=== PATIENT | female | born 1980 | race Caucasian/White ===

== ENCOUNTER → 2018-06-16 15:10 | Outpatient (CLI) | payer MEDICAID, SELFPAY ==
[2018-06-16 15:10] VITALS: BMI 20.5
[2018-06-16 16:55] LABS: HIV - WCH Non-Reactive (Nonreactive)
[2018-06-17 02:06] LABS: Rapid Plasmin Reagin (RPR) NONREACTIVE (NONREACTIVE)
[2018-06-19 16:06] LABS: HCV Quant. RNA PCR HCV Not Detected IU/mL (.)
[2018-06-20 11:08] LABS: HSV 2 IgG < 0.91 index (0.00-0.90)
== END ==
PROVIDERS: Referring Provider Nurse Practitioner Women's Health; Visit Provider Nurse Practitioner Women's Health
DX: Z11.3 Encounter for screening for infections with a predominantly sexual mode of transmission (principal)
CPT/HCPCS: 36415; 86592; 86695; 86696; 86703; 87491; 87522; 87591

== ENCOUNTER → 2018-06-21 13:22 | Outpatient (CLI) | payer MEDICAID, SELFPAY ==
[2018-06-17 09:47] VITALS: BMI 18.8
--- NOTE | 2018-06-21 13:25 | US_ITS ---
STUDY: ULTRASOUND TRANSVAGINAL CLINICAL: Female, 37 years old. Pelvic pain. TECHNIQUE: Transvaginal COMPARISON: CT dated June 27, 2016 FINDINGS: Patient status post hysterectomy. Normal right ovary, measuring 1.6 x 1.3 x 1.4 cm. No discrete solid or cystic lesions are visualized. The patient reports prior left oophorectomy. There is no free fluid in the pelvis. No discrete solid or cystic lesions are visualized. US/Transvaginal Non- IMPRESSION: No specific sonographic findings to explain symptoms. Electronically Signed: Leticia Bowling MD at 9:10 EDT Tel , Service support ,
== END ==
PROVIDERS: Referring Provider Obstetrics & Gynecology; Visit Provider Obstetrics & Gynecology
DX: R10.2 Pelvic and perineal pain (principal)
CPT/HCPCS: 76830; 93976

== ENCOUNTER 2018-07-10 12:55 | Emergency (ER) | payer MEDICAID, SELFPAY ==
[2018-06-17 09:47] VITALS: BMI 18.8
[2018-07-10 12:56] VITALS: BP 94/52; PULSE 96; RESP 22; TEMP 36.7; O2SAT 100; BMI 19.5
--- NOTE | 2018-07-10 13:08 | CT_ITS ---
STUDY: CT ABDOMEN AND PELVIS WITHOUT CONTRAST REASON FOR EXAM: Female, 38 years old. Abdominal pain x4 days. Nausea and vomiting. GERD. IBS. Hysterectomy. RADIATION DOSAGE (If Supplied By Facility): CTDIvol = ( 8.82 ) mGy, DLP = ( 438.54 ) mGycm TECHNIQUE: Transaxial images were obtained from the dome of the diaphragm to the symphysis pubis without oral contrast, and without intravenous contrast. Sagittal and coronal images were reconstructed. Individualized dose optimization techniques were used for this CT. COMPARISON: 06/27/2016. FINDINGS: Vertical linear subsegmental atelectases in the right anterior lung base. The visualized portions of the heart are within normal limits. Normal liver. Normal gallbladder and extrahepatic biliary system. Normal spleen. Normal pancreas. Normal bilateral adrenal glands. Normal right kidney. Normal left kidney. Normal visualized stomach. Normal small intestine. Normal colon. The appendix is visualized and appears normal. Normal abdominal aorta. Normal inferior vena cava. Normal retroperitoneum. Normal urinary bladder. Normal abdominal wall. Normal osseous structures. CT/Abdomen/Pelvis without Cont IMPRESSION: 1. Normal unenhanced CT of the abdomen and pelvis. 2. Vertical linear subsegmental atelectases in the right anterior lung base. Electronically Signed: Bonifacio Reynoso MD at 14:32 EDT , Service support ,
--- NOTE | 2018-07-10 13:11 | ED.DCSUM_ITS ---
- ER Visit Summary Date of Service: 07/10/18 Chief Complaint: [] Right-sided abdominal pain diarrhea and vomiting for 4 days History of Present Illness: The patient is a 38 F [] patient has history of chronic abdominal pain, history of hysterectomy with pole of uterus and left ovary right ovary left in place, a few years ago, hiatal hernia, chronic abdominal pain, chronic colon problem, per the patient the father she had extensive prior evaluation at [facility] in [facility], the exact etiology of her chronic pain were unclear at one point time was thought to be related to issues related to ovarian cysts who she was seen by gynecology that was ruled out other time she was told she had a problem with her colon such as colitis or inflammation of the colon testing was done that was non-conclusive. The patient reports for the last 4 days she has had quite a bit of vomiting and diarrhea intensification of the right sided abdominal pain urinary habits have been normal the diarrhea is watery she is also intimately vomiting, her symptoms intensified today and she was brought in by paramedics Father is expressing quite a bit of frustration at the lack of a clear diagnosis and treatment management plan by the variety of physicians who she seen Physical Examination: [] Her vital signs are within normal range she is afebrile in the does not recall having fevers at home complaining of pain to the right side the abdomen General, no distress resting comfortably is complaining of pain to the right side of the abdomen HEENT is generally unremarkable The neck is supple no adenopathy Cardiovascular, regular rate and rhythm Lungs, clear bilateral Abdomen, soft nonspecific pain to the right side abdomen no rebound guarding organomegaly Extremities, no clubbing cyanosis or edema Neurologic, awake alert answering questions appropriately moving all 4 extremiti es Test Results: [] Please add the following the father reports he had an extensive prior evaluation at [facility] in [facility] other allowing facilities that were unremarkable in addition to there are some studies in the computer system at [facility] that reflect the negative pelvic ultrasound done within the last week, negative ultrasound gallbladder 2016, negative colonoscopy EGD 2017 that showed hiatal hernia only Emergency Department Course and Treatment: [] In all the above IV fluid screen ing labs pain management CT of the abdomen Treatment Plan: [] Patient screening labs are all generally unremarkable, the liver panel clotted and could not be redrawn, the UA the rest of the blood test the CT abdomen pelvis were all unremarkable, had a long conversation the patient her father she is resting more comfortably she feels better At this time she wants to go home, she will be started on [place] [facility] [address] tablets Zofran, she has attempted to see [facility] I recommended she do so, she has also been told by her loft worker apprentice she may have endometriosis that is ca using her pelvic pain and she will follow-up with them regarding further management for the above and she will return for change in symptoms Disposition: [] Home stable Impression: [] Acute recurrent abdominal pain vomiting diarrhea improved to resolved This note was generated with [employer]hythm dictation software. It may contain incorrect words, spelling, and punctuation that were not noted in review of the chart prior to signing ED Disposition - Plan for ED Patient: Referrals: Care Physician,No Primary [Primary Care Provider] -
[2018-07-10] MEDS: 0.9% Normal Saline 1,000 ML 1000 ML IV (13:17)
[2018-07-10] MEDS: Ondansetron 4 MG/2 ML Vial IV (13:18)
[2018-07-10] MEDS: morphine 8 MG/ML Syringe IV (13:18)
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
[2018-07-10] MEDS: 0.9% Normal Saline 1,000 ML 999 ML IV (14:02)
[2018-07-10 14:08] VITALS: BP 111/72; PULSE 77; RESP 16; O2SAT 100
[2018-07-10 14:12] LABS: Absolute Neutrophil Count 2.2 X10^3/uL (2.0-7.7); Basophil# 0.01 X10^3/uL; Basophil% 0.3 % (0-1); Eosinophil# 0.03 X10^3/uL; Eosinophils% 0.8 % (0-5); Hematocrit 41.9 % (37-47); Hemoglobin 14.4 g/dl (12.0-15.0); Lymphocyte % 30.6 % (19-41); Mean Corp Hgb Conc 34.4 g/gl (32-36); Mean Corpuscular Hgb 30.8 pg (27.0-32.0); Mean Corpuscular Volume 89.5 fL (81-99); Mean Platelet Vol. 9.8 fl (6.2-12.0); Monocyte# 0.29 X10^3/uL; Monocyte% 8.1 % (0-10); Neutrophil # 2.15 X10^3/uL (2.7-7.7); Neutrophil % 59.9 % (47-70); Platelet Count 171 K/mm3 (150-450); RBC Distribution Width CV 12.6 % (11.6-14.6); RBC Distribution Width SD 40.6 fl (35.1-43.9); Red Blood Count 4.68 M/mm3 (4.2-5.4); White Blood Count 3.6 K/mm3 (4.4-11.0)
[2018-07-10 14:13] LABS: POSITIVE COUNT NO; POSITIVE DIFFERENTIAL NO; POSITIVE MORPHOLOGY NO
[2018-07-10 14:28] LABS: Anion Gap 13 (5-15); BUN 14 mg/dL (7-18); Calcium,Total 8.1 mg/dL (8.5-10.1); Chloride 107 mmol/L (98-107); Creatinine, Serum 0.74 mg/dL (0.55-1.02); EST Glomerular Filtration Rate 94 mL/min (>60); Est Glom Filt Rate - Afr Amer 113 mL/min (>60); Estimated Creatinine Clearance 91.94 ml/min; Glucose 61 mg/dL (74-106); Lipase 76 U/L (73-393); Potassium 3.9 mmol/L (3.5-5.1); Sodium Level 135 mmol/L (136-145)
[2018-07-10 14:33] LABS: Bacteria 0 SEEN /hpf (None Seen); Color, Urine Yellow (Yellow); Glucose, Dipstick Normal (Normal); Leukocyte Esterase-Dipstick Negative /ul (Negative); Mucous, Urine 0 SEEN /hpf (<or=2+); Nitrite-Dipstick Negative (Negative); Occult Blood-Urine Negative /ul (Negative); Protein-Dipstick Negative (Negative); Red Blood Cells-Urine 0 SEEN /hpf (0-5); Specific Gravity, Urine 1.015 (1.002-1.030); Urine Bilirubin Dipstick Negative (Negative); Urine Clarity Clear (Clear); Urine Urobilinogen Normal (Normal)
[2018-07-10 14:36] LABS: Internal QC Validated? YES +Cl - CLEAR BKGD; Ketone-Dipstick 150 mg/dl (Negative); Pregnancy, Urine Negative Negative
[2018-07-10 14:41] LABS: Squamous Epithelial Cells - UA 0-5 SEEN /hpf (5-10); White Blood Cells 0-5 SEEN /hpf (0-5)
[2018-07-10 14:59] VITALS: BP 109/73; PULSE 88; RESP 16; O2SAT 95
--- NOTE | 2018-07-10 15:31 | ED.DEP ---
ED Disposition - Plan for ED Patient: Instructions: ED Abdominal Pain Unkn Cause Prescriptions: Hydrocodone Bitart/Apap 5-325 [[place] 5MG-325MG] 1 tab PO Q4H PRN PRN 2 Days #4 tab PRN Reason: Pain Ondansetron [Zofran Odt] 4 mg PO Q8H PRN PRN #10 tab PRN Reason: Nausea Referrals: Care Physician,No Primary [Primary Care Provider] -
--- NOTE | 2018-07-10 15:34 | DCINST.ED_ITS ---
ED Disposition - Plan for ED Patient: Instructions: ED Abdominal Pain Unkn Cause Prescriptions: Hydrocodone Bitart/Apap 5-325 [[place] 5MG-325MG] 1 tab PO Q4H PRN PRN 2 Days #4 tab PRN Reason: Pain Ondansetron [Zofran Odt] 4 mg PO Q8H PRN PRN #10 tab PRN Reason: Nausea Referrals: Care Physician,No Primary [Primary Care Provider] -
[2018-07-10 16:05] VITALS: BP 108/69; PULSE 85; RESP 16; O2SAT 98
== END 2018-07-10 16:13 | disposition home or self-care (01) ==
LOC: ED 13:29
PROVIDERS: Emergency Provider Emergency Medicine
DX: R10.9 Unspecified abdominal pain (principal); G89.29 Other chronic pain; R19.7 Diarrhea, unspecified; R11.2 Nausea with vomiting, unspecified; Z90.710 Acquired absence of both cervix and uterus
CPT/HCPCS: 36415; 70450; 74176; 80048; 81001; 81025; 83690; 85025; 87086; 96361; 96374; 96375; 99285; J7030; J2405

== ENCOUNTER 2018-07-19 14:11 | Observation (INO) | payer MEDICAID, SELFPAY ==
[2018-07-19] VITALS (7 sets, daily range): BP systolic 92–103; BP diastolic 54–68; PULSE 73–98; RESP 18; TEMP 36.6–36.8; O2SAT 92–100; BMI 19.7; BMI 19.8
--- NOTE | 2018-07-19 14:30 | CT_ITS ---
STUDY: CT ABDOMEN AND PELVIS WITH CONTRAST REASON FOR EXAM: Female, 38 years old. Vomiting, hiatal hernia RADIATION DOSAGE (If Supplied By Facility): CTDIvol = ( 13.45 ) mGy, DLP = ( 360.77 ) mGycm TECHNIQUE: Transaxial images were obtained from the dome of the diaphragm to the symphysis pubis without oral contrast. 100 IV/Oral Isovue 300 was administered. Sagittal and coronal images were reconstructed. Individualized dose optimization techniques were used for this CT. COMPARISON: July 10, 2018 CT abdomen and pelvis FINDINGS: The visualized lung bases are unremarkable. The visualized portions of the heart are within normal limits. Normal liver. Normal gallbladder and extrahepatic biliary system. Normal spleen. Normal pancreas. Normal bilateral adrenal glands. Normal right kidney. Normal left kidney. Normal visualized stomach. Normal small intestine. Normal colon. The appendix is visualized and appears normal. Normal abdominal aorta. Normal inferior vena cava. Normal retroperitoneum. Normal urinary bladder. Normal abdominal wall. Normal osseous structures. CT/Abdomen/Pelvis WITH Contrast IMPRESSION: Normal enhanced CT of the abdomen and pelvis. Electronically Signed: Nicanor Li MD at 16:45 EDT , Service support ,
[2018-07-19] MEDS: 0.9% Normal Saline 1,000 ML 1000 ML IV (14:41)
[2018-07-19] MEDS: HYDROmorphone 1 MG/ML Syringe IV ×2 (14:41→16:21)
[2018-07-19] MEDS: Ondansetron 4 MG/2 ML Vial IV ×2 (14:41→20:20)
[2018-07-19 14:49] LABS: Internal QC Validated? YES +Cl - CLEAR BKGD; Pregnancy, Serum, hCG Quali. NEGATIVE Negative
[2018-07-19 14:57] LABS: AST(SGOT) 24 U/L (15-37); Alanine Aminotransfer ALT/SGPT 24 U/L (13-56); Albumin, Serum 3.9 g/dL (3.2-5.0); Alkaline Phosphatase 100 U/L (45-117); Anion Gap 5 (5-15); BUN 9 mg/dL (7-18); BUN/Creat Ratio 10.9 RATIO (10-20); Calcium,Total 8.9 mg/dL (8.5-10.1); Chloride 110 mmol/L (98-107); Creatinine, Serum 0.83 mg/dL (0.55-1.02); EST Glomerular Filtration Rate 82 mL/min (>60); Est Glom Filt Rate - Afr Amer 99 mL/min (>60); Estimated Creatinine Clearance 82.92 ml/min; Globulin 3.9 g/dL (2.2-4.2); Glucose 101 mg/dL (74-106); Lipase 117 U/L (73-393); Potassium 4.1 mmol/L (3.5-5.1); Protein, Total 7.8 g/dL (6.4-8.2); Sodium Level 138 mmol/L (136-145)
[2018-07-19 14:58] LABS: Absolute Lymphocyte Count 1.32 X10^3/ul (0.83-4.51); Absolute Neutrophil Count 13.3 X10^3/uL (2.0-7.7); Basophil# 0.01 X10^3/uL; Basophil% 0.1 % (0-1); Eosinophils% 3.2 % (0-5); Hematocrit 46.6 % (37-47); Hemoglobin 15.6 g/dl (12.0-15.0); Lymphocyte # 1.32 X10^3/ul (4.0); Lymphocyte % 8.4 % (19-41); Mean Corp Hgb Conc 33.5 g/gl (32-36); Mean Corpuscular Volume 92.5 fL (81-99); Mean Platelet Vol. 10.1 fl (6.2-12.0); Monocyte# 0.67 X10^3/uL; Monocyte% 4.2 % (0-10); Neutrophil # 13.25 X10^3/uL (2.7-7.7); Neutrophil % 83.9 % (47-70); Platelet Count 258 K/mm3 (150-450); RBC Distribution Width CV 13.2 % (11.6-14.6); RBC Distribution Width SD 44.4 fl (35.1-43.9); Red Blood Count 5.04 M/mm3 (4.2-5.4); White Blood Count 15.8 K/mm3 (4.4-11.0)
[2018-07-19 15:00] LABS: Differential Indicated SCAN CRITERIA MET; POSITIVE COUNT NO; POSITIVE DIFFERENTIAL NO; POSITIVE MORPHOLOGY YES
[2018-07-19 15:37] LABS: Differential Comment SCANNED
[2018-07-19] MEDS: proMETHazine 25 MG/ML Syringe 12.5 MG IV (15:40)
[2018-07-19 16:31] LABS: Lactic Acid 0.9 mmol/L (0.4-2.0)
--- NOTE | 2018-07-19 16:57 | ED.VISSUMM ---
- ER Visit Summary Date of Service: 07/19/18 Chief Complaint: [Abdominal pain] History of Present Illness: The patient is a 38 F [presents to the emergency department complaint of abdominal pain that started about a week ago. Patient has had multiple episodes of nausea and vomiting. Patient states that anytime she tries to eat she has worsening pain. Her last bowel movement was yesterday and she had a small stool that was hard. She denies any fevers. Patient has had some sweats. She has a history of a hiatal hernia. She is had prior hysterectomy. Patient presented via EMS and is complaining of severe pain. Patient had a visit to the emergency department approximately a week ago which time she had a CT scan without contrast that was unremarkable.] Physical Examination: [HEENT-PERRLA, EOMI. Cranial nerves II through XII grossly intact. TMs clear. Mucous membranes moist. No adenopathy. Cardiovascular-regular rate and rhythm without murmur or ectopy Lungs-clear to auscultation, chest wall stable without crepitus or subcu emphysema Abdomen-normoactive bowel sounds, soft. Patient has diffuse tenderness to palpation. There is no rebound, rigidity, or perineal signs. Extremities-intact ?4, normal range of motion, normal pulses, atraumatic] Test Results: [CBC with differential White count 15.8, hemoglobin 15.6, hematocrit 47, placed 258. Chemistries normal. LFTs normal. Lipase was 117. hCG was negative. CT scan of the abdomen pelvis with IV and p.o. contrast was read as normal.] Emergency Department Course and Treatment: [Patient was medicated Dilaudid and Zofran. Patient with the complaint of nausea and she was given a dose of Phenergan. Patient then stated that her pain returned and was given another milligram of Dilaudid IV. Patient continues to complain of nausea and pain.] Treatment Plan: [Admit for symptom management and further evaluation.] Disposition: [Admit] Impression: [Abdominal pain-etiology uncertain Intractable nausea and vomiting] This note was generated with Prism Digitalation software. It may contain incorrect words, spelling, and punctuation that were not noted in review of the chart prior to signing ED Disposition - Plan for ED Patient: Referrals: Care Physician,No Primary [Primary Care Provider] -
--- NOTE | 2018-07-19 18:00 | PCM.HP.STD ---
Problem List (1) Abdominal pain Status: Acute (2) Endometriosis Status: Chronic (3) Status post left oophorectomy Status: Chronic History of Present Illness Date of Admission: 07/19/18 Chief Complaint: abdominal pain The patient is a 38 year old F with pmhx of endometriosis s/p hysterectomy and left oopherectomy, former smoker, chronic abdominal pain, who presents to the ER with c/o abdominal pain. This is mainly located over the RLQ and RUQ. She states this has been going on for 3 weeks. She states it is worse with eating, better when sitting with knees drawn up. Pain is 8/10. She has no fever or chills. She has nausea and vomiting. She cannot keep most foods down. She states she is vomiting up stool. She was in the ER about 1 week prior for this, workup was negative including CT abdomen which was normal, also in may she had a transvaginal ultrasound that was normal. Today a repeat CT abdomen is negative. She denies recent travel, denies diet change. She drinks bottled water at home. She has not been exposed to farm animals. She has not had blood in her stool or vomit. She has a prior hysterectomy and left salpingo oopherectomy for endometriosis. I called her OBGYN Dr. Rodríguez. She indicated that she has been seen for chronic pelvic pain and no clear etiology has been found. [] Past Medical History Past Medical History (Chronic Problems): Chronic Problems (Last Updated 06/16/18 @ 14:40 by Kesha Trejo) Endometriosis (Chronic) Status post left oophorectomy (Chronic) Medical History: Medical History (Last Updated 06/16/18 @ 14:40 by Kesha Trejo) Endometriosis N80.9 Hiatal hernia K44.9 Allergies nitrofurantoin macrocrystalline [From Macrodantin] Allergy (Verified 07/19/18 14:31) Mucosal lesions dicyclomine HCl [From Bentyl] Adverse Reaction (Verified 07/19/18 17:23) ANXIETY ANXIETY hydrocodone bitartrate [From Vicodin] Adverse Reaction (Verified 07/19/18 14:31) Nausea/Vom/Diarrhea prochlorperazine [From Compazine] Adverse Reaction (Verified 07/19/18 17:23) ANXIETY ANXIETY prochlorperazine edisylate [From Compazine] Adverse Reaction (Verified 07/19/18 17:23) ANXIETY ANXIETY prochlorperazine maleate [From Filament Labsazine] Adverse Reaction (Verified 07/19/18 17:23) ANXIETY ANXIETY Home Medications: Ambulatory Orders Medication Instructions Recorded Acetaminophen [Tylenol Arthritis] 1,300 mg PO PRN PRN 07/19/18 Cranberry Fruit Concentrate [Azo 250 mg PO DAILY 07/19/18 Cranberry] Ibuprofen 400 mg PO PRN PRN 07/19/18 Naproxen Sodium [Aleve] 440 mg PO PRN PRN 07/19/18 Surgical History: Surgical History (Last Updated 06/16/18 @ 14:40 by Kesha Trejo) H/O: hysterectomy Z90.710 Bilateral salpinectomy History of left oophorectomy Z90.721 Surgical History: hysterectomy Psychiatric History: No pertinent psych hx SU[employer] MA[employer]GER History: endometriosis Lives: With Family Smoking Status: Former smoker Tobacco Use: Cigarettes Alcohol: None Drugs: None - *Family History Maternal Family History: Family History (Last Updated 06/16/18 @ 14:42 by Kesha Trejo) Mother Endometriosis Aunt Cancer Grandmother Cancer Uncle Hypertension History Items: - - RA Review of Systems Constitutional: Denies: Chills, Fever, Weight Change HEENT: Denies: Head Aches, Sinus Congestion, Sinus Drainage Cardiovascular: Denies: Chest Pain, Edema, Heaviness, Light Headedness, Palpitations Respiratory: Denies: Cough, Shortness of Breath, Shortness of breath at rest, Sputum production Gastrointestinal: Reports: Abdominal Pain, Diarrhea, Nausea. Denies: Hematemesis, Hematochezia, Vomiting Genitourinary: Denies: Dysuria Musculoskeletal: Denies: Joint Pain, Joint Tenderness Skin: Denies: Rash, Wounds Neurological: Denies: Numbness, Tingling, Focal weakness Psychiatric: Denies: Anxiety, Depression, Homicidal Ideations, Suicidal Ideations Hematologic/ Lymphatic: Denies: Easy Bruising, Easy Bleeding VTE Information - Inpt Only VTE Present on Admission: No VTE Mechan Device Prophylaxis: None VTE Pharm Prophylaxis ordered?: Yes Patient Problems: Active and Suspected Problems (Last Updated 06/16/18 @ 14:40 by Kesha Trejo) Abdominal pain (Acute) - Physical Exam General: Alert, Oriented x3, Cooperative HEENT: Atraumatic, PERRLA, EOMI, Normocephalic Neck: Supple, No JVD, Negative Carotid Bruits Lungs: Clear to auscultation, Normal air movement Cardiovascular: Regular rate, No murmurs Abdomen: Soft, Hypoactive Bowel Sounds, Tender - diffusely tender, soft on palp no guarding or rigidity. Extremities: No edema, Capillary Refill Less than 3 Seconds Skin: No rashes, No breakdown Musculoskeletal: No Tenderness to Palpation of Joints or Extremities Neurological: Cranial nerves II-XII grossly intact Psych/Mental Status: Appropriate, Anxious, Alert and oriented to time, place, person, mood and affect Vital Signs Temp Pulse Resp BP Pulse Ox 98 F 92 18 100/68 99 07/19/18 14:12 07/19/18 18:00 07/19/18 18:00 07/19/18 18:00 07/19/18 18:00 Oxygen Delivery Method Room Air Weight: 126 lb Body Mass Index (BMI) 19.7 Laboratory Tests Past 24 Hrs 07/19/18 07/19/18 07/19/18 14:25 14:25 14:25 WBC 15.8 H RBC 5.04 Hgb 15.6 H Hct 46.6 MCV 92.5 MCH 31.0 MCHC 33.5 RDW 13.2 RDW Differential 44.4 H Plt Count 258 MPV 10.1 Immature Gran % (Auto) 0.200 Neut % (Auto) 83.9 H Lymph % (Auto) 8.4 L [place] % (Auto) 4.2 Eos % (Auto) 3.2 Baso % (Auto) 0.1 Absolute Neuts (auto) 13.3 H Absolute Lymphs (auto) 1.32 Total Counted Not Reportable Differential Comment SCANNED Sodium 138 Potassium 4.1 Chloride 110 H Carbon Dioxide 23.0 Anion Gap 5 BUN 9 Creatinine 0.83 Estim Creat Clear Calc 82.92 Est GFR (MDRD) Af Amer 99 Est GFR (MDRD) Non-Af 82 BUN/Creatinine Ratio 10.9 Glucose 101 Lactic Acid Calcium 8.9 Total Bilirubin 0.40 AST 24 ALT 24 Alkaline Phosphatase 100 Total Protein 7.8 Albumin 3.9 Globulin 3.9 Albumin/Globulin Ratio 1.0 Lipase 117 Serum , Qual NEGATIVE 07/19/18 07/19/18 14:53 15:35 WBC RBC Hgb Hct MCV MCH MCHC RDW RDW Differential Plt Count MPV Immature Gran % (Auto) Neut % (Auto) Lymph % (Auto) [place] % (Auto) Eos % (Auto) Baso % (Auto) Absolute Neuts (auto) Absolute Lymphs (auto) Total Counted Differential Comment Sodium Potassium Chloride Carbon Dioxide Anion Gap BUN Creatinine Estim Creat Clear Calc Est GFR (MDRD) Af Amer Est GFR (MDRD) Non-Af BUN/Creatinine Ratio Glucose Lactic Acid Cancelled 0.9 Calcium Total Bilirubin AST ALT Alkaline Phosphatase Total Protein Albumin Globulin Albumin/Globulin Ratio Lipase Serum , Qual Assessment/Plan All Active Problems (Last Updated 06/16/18 @ 14:40 by Kesha Trejo) Abdominal pain (Acute) Constipation (Acute) Lower abdominal pain (Acute) Diarrhea (Acute) Epigastric abdominal pain (Acute) 1. Abdominal pain, nausea, vomiting - possibly gastroenteritis. she does have an elevated WBC elevation. Check enteric panel. Pt states she is vomiting up stool. She has little PO intake. Multiple negative CTs of the abdomen, negative transvaginal. No fever. VSS. Received IV dilaudid in the ER, asking for more pain medication. Per OBGYN she has long hx of chronic abdominal pain with no etiology. Hx is inconsistent. She told me this has been going on 3 weeks. Last week in the ER she gave a hx of 4 days. -supportive care, IV fluids, diet sips and chips only. -serum neg. -UA pending. -lactate neg -lipase neg 2. Hx endometriosis s/p hysterectomy, left salpingo-oopherectomy 3. Former smoker, quit 1 year prior DVT ppx: SCDs Obs to Med surg This patient was seen by Aries Abbott PA-C under the supervision of Dr. Quesada.
[2018-07-19 18:06] LABS: Mucous, Urine 0 SEEN /hpf (<or=2+); Red Blood Cells-Urine 0 SEEN /hpf (0-5)
[2018-07-19 18:10] LABS: Color, Urine Yellow (Yellow); Glucose, Dipstick Normal (Normal); Ketone-Dipstick Negative (Negative); Leukocyte Esterase-Dipstick Negative /ul (Negative); Nitrite-Dipstick Negative (Negative); Occult Blood-Urine Negative /ul (Negative); Protein-Dipstick Negative (Negative); Specific Gravity, Urine 1.005 (1.002-1.030); Urine Bilirubin Dipstick Negative (Negative); Urine Clarity Clear (Clear); Urine Urobilinogen Normal (Normal); Urine pH 6.5 (5.0 - 8.0)
--- NOTE | 2018-07-19 18:21 | NURSING ---
pt has not arrived from er at this time
[2018-07-19 18:39] LABS: Bacteria RARE /hpf (None Seen); Squamous Epithelial Cells - UA 0-5 SEEN /hpf (5-10); White Blood Cells 0 SEEN /hpf (0-5)
--- NOTE | 2018-07-19 18:42 | NURSING ---
pt remains in er/off unit
[2018-07-19] MEDS: 0.9% Normal Saline 1,000 ML 125 ML IV (20:19)
[2018-07-19] MEDS: 0.9% NaCl Peripheral Flush Adult/Peds IV (20:20)
[2018-07-19] MEDS: Morphine 2 MG/ML Syringe IV (20:20)
[2018-07-19] MEDS: oxyCODONE 5 MG Tablet PO (21:26)
[2018-07-19] MEDS: Temazepam 15 MG Capsule PO (21:26)
[2018-07-20] MEDS: proMETHazine 25 MG/ML Syringe 6.25 MG IV ×4 (00:22→21:49)
[2018-07-20 02:30] VITALS: BP 94/54; PULSE 74; RESP 16; TEMP 36.7; O2SAT 98
[2018-07-20] MEDS: Morphine 2 MG/ML Syringe IV ×4 (02:37→19:02)
[2018-07-20] MEDS: Ondansetron 4 MG/2 ML Vial IV ×2 (02:43→17:13)
[2018-07-20] MEDS: 0.9% Normal Saline 1,000 ML 125 ML IV ×2 (04:45→16:20)
--- NOTE | 2018-07-20 06:30 | NM_ITS ---
CLINICAL: 38-year-old female with reported history of abdominal pain and nausea. RADIONUCLIDE HEPATOBILIARY SCINTIGRAPHY COMPARISON: Gallbladder ultrasound report 06/27/2018, CT of the abdomen-pelvis report 07/19/2018 FINDINGS: Following the intravenous administration of 5.1 mCi of 99m Tc Mebrofenin, hepatobiliary images reveal: 1. Relatively prompt and homogeneous radiopharmaceutical concentration is noted by a normal sized liver. No parenchymal defects are identified. 2. Gallbladder activity is identified at 30 minutes post radiopharmaceutical administration. 3. Small intestinal tract is not visualized during 60 minutes of pre-CCK sequential imaging. Small bowel activity is identified following the administration of cholecystokinin. 4. Washout of the radiopharmaceutical by the hepatic parenchyma appears qualitatively normal. Cholecystokinin (0.02 ug/kg) was administered intravenously over a 30-minute period. The post CCK gallbladder ejection fraction calculated at 20 minutes following Cholecystokinin administration was noted to be 12.0 % (normal greater than 35%). NM/Hepatobilliary Img w/Pharm Int IMPRESSION: 1. ABNORMAL 99m Tc Mebrofenin hepatobiliary imaging examination with Cholecystokinin. A. A gallbladder ejection fraction calculated to be less than 35% following the administration of Cholecystokinin is consistent with the presence of functional hepatobiliary disease (gallbladder and/or sphincter of Oddi dyskinesia) and/or organic hepatobiliary disease (chronic acalculous cholecystitis and/or cystic duct syndrome) in patients with intermediate to high pretest likelihoods of hepatobiliary illness. (Hayder Lainez et al, Journal of Nuclear Medicine 32:1695, 1990). Electronically Signed: Ariel Barr DO at 12:31 EDT Tel , Service support ,
[2018-07-20 06:54] LABS: Absolute Lymphocyte Count 1.57 X10^3/ul (0.83-4.51); Basophil# 0.01 X10^3/uL; Basophil% 0.2 % (0-1); Eosinophils% 7.5 % (0-5); Hematocrit 37.3 % (37-47); Hemoglobin 12.4 g/dl (12.0-15.0); Lymphocyte # 1.57 X10^3/ul (4.0); Lymphocyte % 29.6 % (19-41); Mean Corp Hgb Conc 33.2 g/gl (32-36); Mean Corpuscular Hgb 30.5 pg (27.0-32.0); Mean Corpuscular Volume 91.6 fL (81-99); Mean Platelet Vol. 9.6 fl (6.2-12.0); Monocyte# 0.29 X10^3/uL; Monocyte% 5.5 % (0-10); Neutrophil # 3.03 X10^3/uL (2.7-7.7); Neutrophil % 57.2 % (47-70); Platelet Count 184 K/mm3 (150-450); RBC Distribution Width CV 13.3 % (11.6-14.6); RBC Distribution Width SD 44.1 fl (35.1-43.9); Red Blood Count 4.07 M/mm3 (4.2-5.4); White Blood Count 5.3 K/mm3 (4.4-11.0)
[2018-07-20 06:56] LABS: POSITIVE COUNT NO; POSITIVE DIFFERENTIAL NO; POSITIVE MORPHOLOGY NO
[2018-07-20 07:07] LABS: AST(SGOT) 17 U/L (15-37); Alanine Aminotransfer ALT/SGPT 16 U/L (13-56); Albumin, Serum 2.9 g/dL (3.2-5.0); Alkaline Phosphatase 75 U/L (45-117); Anion Gap 3 (5-15); BUN 9 mg/dL (7-18); BUN/Creat Ratio 12.4 RATIO (10-20); Calcium,Total 7.9 mg/dL (8.5-10.1); Chloride 115 mmol/L (98-107); Creatinine, Serum 0.73 mg/dL (0.55-1.02); EST Glomerular Filtration Rate 95 mL/min (>60); Est Glom Filt Rate - Afr Amer 115 mL/min (>60); Estimated Creatinine Clearance 94.28 ml/min; Glucose 79 mg/dL (74-106); Potassium 3.8 mmol/L (3.5-5.1); Protein, Total 5.9 g/dL (6.4-8.2); Sodium Level 141 mmol/L (136-145)
[2018-07-20 08:12] VITALS: BP 101/64; PULSE 70; RESP 16; TEMP 36.7; O2SAT 98
--- NOTE | 2018-07-20 09:09 | PN_ITS ---
Patient Problems: Active and Suspected Problems (Last Updated 06/16/18 @ 14:40 by Kesha Trejo) Abdominal pain (Acute) Subjective: Patient is a 38-year-old lady with history of chronic abdominal pain, history of endometriosis status post hysterectomy and left oophorectomy who presented with abdominal discomfort associated with nausea and vomiting. Admitted to regular nursing floor for subsequent management. Objective: GENERAL: Appears to be in some distress HEENT: Atraumatic; EYES; Anicteric, Normal Conjunctiva NECK; supple, normal thyroid, RESPIRATORY: Diminished to auscultation bilaterally, CARDIOVASCULAR: Regular S1 S2, GI: soft, no abdominal tenderness : No Renal angle tenderness; EXTREMITIES: No edema, no clubbing, no cyanosis. MUSCULOSKELETAL: No Joint Tenderness; no muscle waisting NEURO: Awake; no lateralizing signs. SKIN: No Rash PSYCH; Normal affect Vitals/I&O's: Vital Signs Temp Pulse Resp BP Pulse Ox 98.1 F 70 16 101/64 98 07/20/18 08:12 07/20/18 08:12 07/20/18 08:12 07/20/18 08:12 07/20/18 08:12 Oxygen Delivery Method Room Air Weight: 57.153 kg Body Mass Index (BMI) 19.8 Intake and Output for Last 24 Hours 07/18/18 07/19/18 07/20/18 23:59 23:59 23:59 Intake Total 1292 / 1292 Output Total 1300 / 1300 Balance -8 / -8 Laboratory Results 07/19/18 14:25: WBC 15.8 H, RBC 5.04, Hgb 15.6 H, Hct 46.6, MCV 92.5, MCH 31.0, MCHC 33.5, RDW 13.2, RDW Differential 44.4 H, Plt Count 258, MPV 10.1, Immature Gran % (Auto) 0.200, Neut % (Auto) 83.9 H, Lymph % (Auto) 8.4 L, [place] % (Auto) 4.2, Eos % (Auto) 3.2, Baso % (Auto) 0.1, Absolute Neuts (auto) 13.3 H, Absolute Lymphs (auto) 1.32, Total Counted Not Reportable, Differential Comment SCANNED 07/19/18 14:25: Sodium 138, Potassium 4.1, Chloride 110 H, Carbon Dioxide 23.0, Anion Gap 5, BUN 9, Creatinine 0.83, Estim Creat Clear Calc 82.92, Est GFR (MDRD) Af Amer 99, Est GFR (MDRD) Non-Af 82, BUN/Creatinine Ratio 10.9, Glucose 101, Calcium 8.9, Total Bilirubin 0.40, AST 24, ALT 24, Alkaline Phosphatase 100, Total Protein 7.8, Albumin 3.9, Globulin 3.9, Albumin/Globulin Ratio 1.0, Lipase 117 07/19/18 14:25: Serum , Qual NEGATIVE 07/19/18 14:53: Lactic Acid Cancelled 07/19/18 15:35: Lactic Acid 0.9 07/19/18 17:53: Urine Color Yellow, Urine Clarity Clear, Urine pH 6.5, Ur Specific [place] 1.005, Urine Protein Negative, Urine Glucose (UA) Normal, Urine Ketones Negative, Urine Occult Blood Negative, Urine Nitrite Negative, Urine Bilirubin Negative, Urine Urobilinogen Normal, Ur Leukocyte Esterase Negative, Urine RBC 0 SEEN, Urine WBC 0 SEEN, Ur Squamous Epith Cells 0-5 SEEN, Urine Bacteria RARE, Urine Mucus 0 SEEN 07/20/18 06:30: WBC 5.3, RBC 4.07 L, Hgb 12.4, Hct 37.3, MCV 91.6, MCH 30.5, M CHC 33.2, RDW 13.3, RDW Differential 44.1 H, Plt Count 184, MPV 9.6, Immature Gran % (Auto) 0.000, Neut % (Auto) 57.2, Lymph % (Auto) 29.6, Barber % (Auto) 5.5, Eos % (Auto) 7.5 H, Baso % (Auto) 0.2, Absolute Neuts (auto) 3.0, Absolute Lymphs (auto) 1.57, Total Counted Not Reportable 07/20/18 06:30: Sodium 141, Potassium 3.8, Chloride 115 H, Carbon Dioxide 23.0, Anion Gap 3 L, BUN 9, Creatinine 0.73, Estim Creat Clear Calc 94.28, Est GFR (MDRD) Af Amer 115, Est GFR (MDRD) Non-Af 95, BUN/Creatinine Ratio 12.4, Glucose 79, Calcium 7.9 L, Total Bilirubin 0.40, AST 17, ALT 16, Alkaline Phosphatase 75, Total Protein 5.9 L, Albumin 2.9 L, Globulin 3.0, Albumin/Globulin Ratio 1.0 Current Medications Acetaminophen (Tylenol) 650 mg PO Q6H PRN PRN PRN Reason: Non-cardiac pain (mod-severe) Sodium Chloride () 1,000 mls @ 125 mls/hr IV .Q8H MILAN Last Admin: 07/20/18 04:45 Dose: 125 mls/hr Pantoprazole Sodium 40 mg/ (Sodium Chloride) 110 mls @ 330 mls/hr IV Q12 MILAN Last Admin: 07/20/18 07:35 Dose: 330 mls/hr Morphine Sulfate () 2 mg IV Q3H PRN PRN PRN Reason: SEVERE PAIN (6-10/10) Last Admin: 07/20/18 02:37 Dose: 2 mg Ondansetron HCl (Zofran) 4 mg IV Q6H PRN PRN PRN Reason: NAUSEA Last Admin: 07/20/18 02:43 Dose: 4 mg Oxycodone HCl (Oxyir) 5 - 10 mg PO Q4H PRN PRN PRN Reason: SEVERE PAIN (6-10/10) Last Admin: 07/19/18 21:26 Dose: 10 mg Promethazine HCl (Phenergan) 6.25 mg IV Q6H PRN PRN PRN Reason: NAUSEA/VOMITING Last Admin: 07/20/18 06:55 Dose: 6.25 mg Sodium Chloride () 5 - 15 ml IV UD PRN PRN Reason: SALINE FLUSH Last Admin: 07/19/18 20:20 Dose: 10 ml Temazepam (Restoril) 15 mg PO QHS PRN PRN PRN Reason: INSOMNIA Last Admin: 07/19/18 21:26 Dose: 15 mg Medical Necessity - Tobacco Use Smoking Status: Former smoker Tobacco Use: Cigarettes Assessment/Plan All Active Problems (Last Updated 06/16/18 @ 14:40 by Kseha Trejo) Abdominal pain (Acute) Constipation (Acute) Lower abdominal pain (Acute) Diarrhea (Acute) Epigastric abdominal pain (Acute) Patient is a 38-year-old lady with history of chronic abdominal pain, history of endometriosis status post hysterectomy and left oophorectomy who presented with abdominal discomfort associated with nausea and vomiting. Admitted to regular nursing floor for subsequent management. 1. Abdominal pain do suspect pain from possible adhesions following patient's hysterectomy. CT of the abdomen obtained in the emergency department did not show any significant pathology. Patient is scheduled to undergo subsequent evaluation with a HIDA scan 2. Intractable nausea vomiting suspected to be secondary to possible gastroduodenitis patient is on PPI 3. History of endometriosis status post hysterectomy and left oophorectomy 4. History of previous tobacco use apparently did quit a year prior to admission 5. DVT prophylaxis low risk did encourage early ambulation Clinical Impression(s) from Imaging Studies Abdomen/Pelvis CT 07/19/18 14:30 IMPRESSION: Normal enhanced CT of the abdomen and pelvis. Electronically Signed: Nicanor Li MD at 16:45 EDT , Service support , Active Medications Acetaminophen (Tylenol) 650 mg PO Q6H PRN PRN PRN Reason: Non-cardiac pain (mod-severe) Sodium Chloride () 1,000 mls @ 125 mls/hr IV .Q8H MILAN Last Admin: 07/20/18 04:45 Dose: 125 mls/hr Pantoprazole Sodium 40 mg/ (Sodium Chloride) 110 mls @ 330 mls/hr IV Q12 MILAN Last Admin: 07/20/18 07:35 Dose: 330 mls/hr Morphine Sulfate () 2 mg IV Q3H PRN PRN PRN Reason: SEVERE PAIN (6-10/10) Last Admin: 07/20/18 02:37 Dose: 2 mg Ondansetron HCl (Zofran) 4 mg IV Q6H PRN PRN PRN Reason: NAUSEA Last Admin: 07/20/18 02:43 Dose: 4 mg Oxycodone HCl (Oxyir) 5 - 10 mg PO Q4H PRN PRN PRN Reason: SEVERE PAIN (6-10/10) Last Admin: 07/19/18 21:26 Dose: 10 mg Promethazine HCl (Phenergan) 6.25 mg IV Q6H PRN PRN PRN Reason: NAUSEA/VOMITING Last Admin: 07/20/18 06:55 Dose: 6.25 mg Sodium Chloride () 5 - 15 ml IV UD PRN PRN Reason: SALINE FLUSH Last Admin: 07/19/18 20:20 Dose: 10 ml Temazepam (Restoril) 15 mg PO QHS PRN PRN PRN Reason: INSOMNIA Last Admin: 07/19/18 21:26 Dose: 15 mg Code Visit OBSV E&M: 69250 Subsequent observation care L3
--- NOTE | 2018-07-20 10:52 | NURSING ---
pt to radiology for hida scan @ APPROX 1030
--- NOTE | 2018-07-20 11:13 | PCA ---
pt off floor
--- NOTE | 2018-07-20 11:28 | CON.PCM_ITS ---
Problem List (1) Abdominal pain Status: Acute Reason for Consult Date of Consultation: 07/20/18 Reason for Consultation: Abdominal pain History of Present Illness: The patient is a 38 year old F who presented to the ED with 3 week history of severe abdominal pain, nausea, vomiting. Patient was in the ED on 07/10 for similar symptoms. She was discharged to home. Patient also noted diarrhea, decreased appetite. Patient notes RLQ pain which has radiated up to RUQ. Patient denies routine medications. She has had a partial hysterectomy with remaining right ovary. Patient notes a history of chronic lower abdominal/pelvic pain with endometriosis. Patient denies alcohol use, illict drug use, and smoking. Patient notes her father's side has had gallbladder disease. She has never been evaluated for gallbladder disease. CT scan of the ab/pel was unremarkable Past Medical History Past Medical History (Chronic Problems): Chronic Problems (Last Reviewed 07/20/18 @ 11:28 by Corrie Chamorro PA-C) Endometriosis (Chronic) Status post left oophorectomy (Chronic) Medical History: Medical History (Last Reviewed 07/20/18 @ 11:28 by Corrie Chamorro PA-C) Endometriosis N80.9 Hiatal hernia K44.9 Allergies nitrofurantoin macrocrystalline [From Macrodantin] Allergy (Verified 07/19/18 14:31) Mucosal lesions dicyclomine HCl [From Bentyl] Adverse Reaction (Verified 07/19/18 17:23) ANXIETY ANXIETY hydrocodone bitartrate [From Vicodin] Adverse Reaction (Verified 07/19/18 14:31) Nausea/Vom/Diarrhea prochlorperazine [From Compazine] Adverse Reaction (Verified 07/19/18 17:23) ANXIETY ANXIETY prochlorperazine edisylate [From Compazine] Adverse Reaction (Verified 07/19/18 17:23) ANXIETY ANXIETY prochlorperazine maleate [From Compazine] Adverse Reaction (Verified 07/19/18 17:23) ANXIETY ANXIETY Home Medications: Ambulatory Orders Medication Instructions Recorded Acetaminophen [Tylenol Arthritis] 1,300 mg PO PRN PRN 07/19/18 Cranberry Fruit Concentrate [Azo 250 mg PO DAILY 07/19/18 Cranberry] Ibuprofen 400 mg PO PRN PRN 07/19/18 Naproxen Sodium [Aleve] 440 mg PO PRN PRN 07/19/18 Surgical History: Surgical History (Last Reviewed 07/20/18 @ 11:28 by Corrie Chamorro PA-C) H/O: hysterectomy Z90.710 Bilateral salpinectomy History of left oophorectomy Z90.721 Surgical History: hysterectomy - right ovary remaining 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 Lives: With Family Smoking Status: Former smoker Tobacco Use: Cigarettes Alcohol: None Drugs: None - *Family History Maternal Family History: Family History (Last Updated 06/16/18 @ 14:42 by Kesha Trejo) Mother Endometriosis Aunt Cancer Grandmother Cancer Uncle Hypertension History Items: - - RA Review of Systems Constitutional: Reports: Anorexia, Weight Change, Fatigue HEENT: Denies: Head Aches, Sinus Congestion, Sinus Drainage Cardiovascular: Denies: Chest Pain, Palpitations Respiratory: Denies: Cough, Shortness of breath at rest, Sputum production Gastrointestinal: Reports: Abdominal Pain, Diarrhea, Nausea, Vomiting. Denies: Hematemesis, Hematochezia, Melena Genitourinary: Denies: Dysuria Musculoskeletal: Denies: Joint Pain, Joint Tenderness Skin: Denies: Rash, Wounds Neurological: Denies: Numbness, Tingling, Focal weakness Psychiatric: Denies: Anxiety, Depression, Homicidal Ideations, Suicidal Ideations Hematologic/ Lymphatic: Denies: Easy Bruising, Easy Bleeding, Hx of blood clot Patient Problems: Active and Suspected Problems (Last Reviewed 07/20/18 @ 11:28 by Corrie Chamorro PA-C) Abdominal pain (Acute) - Physical Exam General: Alert, Oriented x3, Cooperative HEENT: Atraumatic, PERRLA, EOMI, Normocephalic Neck: Supple, No JVD, Negative Carotid Bruits Lungs: Clear to auscultation, Normal air movement Cardiovascular: Regular rate, No murmurs Abdomen: Bowel Sounds Present, Soft, Tender - RLQ and RUQ Extremities: No edema, Capillary Refill Less than 3 Seconds Skin: No rashes, - - Scratches bilateral upper extremities Musculoskeletal: No Tenderness to Palpation of Joints or Extremities Neurological: Neuro grossly intact Psych/Mental Status: Flat Affect Vital Signs Temp Pulse Resp BP Pulse Ox 98.1 F 70 16 101/64 98 07/20/18 08:12 07/20/18 08:12 07/20/18 08:12 07/20/18 08:12 07/20/18 08:12 Oxygen Delivery Method Room Air Weight: 126 lb Body Mass Index (BMI) 19.8 Intake and Output for Last 24 Hours 07/18/18 07/19/18 07/20/18 23:59 23:59 23:59 Intake Total 1292 / 1292 Output Total 1300 / 1300 Balance -8 / -8 Laboratory Tests Past 24 Hrs 07/19/18 07/19/18 07/19/18 14:25 14:25 14:25 WBC 15.8 H RBC 5.04 Hgb 15.6 H Hct 46.6 MCV 92.5 MCH 31.0 MCHC 33.5 RDW 13.2 RDW Differential 44.4 H Plt Count 258 MPV 10.1 Immature Gran % (Auto) 0.200 Neut % (Auto) 83.9 H Lymph % (Auto) 8.4 L [place] % (Auto) 4.2 Eos % (Auto) 3.2 Baso % (Auto) 0.1 Absolute Neuts (auto) 13.3 H Absolute Lymphs (auto) 1.32 Total Counted Not Reportable Differential Comment SCANNED Sodium 138 Potassium 4.1 Chloride 110 H Carbon Dioxide 23.0 Anion Gap 5 BUN 9 Creatinine 0.83 Estim Creat Clear Calc 82.92 Est GFR (MDRD) Af Amer 99 Est GFR (MDRD) Non-Af 82 BUN/Creatinine Ratio 10.9 Glucose 101 Lactic Acid Calcium 8.9 Total Bilirubin 0.40 AST 24 ALT 24 Alkaline Phosphatase 100 Total Protein 7.8 Albumin 3.9 Globulin 3.9 Albumin/Globulin Ratio 1.0 Lipase 117 Serum , Qual NEGATIVE Urine Color Urine Clarity Urine pH Ur Specific [place] Urine Protein Urine Glucose (UA) Urine Ketones Urine Occult Blood Urine Nitrite Urine Bilirubin Urine Urobilinogen Ur Leukocyte Esterase Urine RBC Urine WBC Ur Squamous Epith Cells Urine Bacteria Urine Mucus 07/19/18 07/19/18 07/19/18 14:53 15:35 17:53 WBC RBC Hgb Hct MCV MCH MCHC RDW RDW Differential Plt Count MPV Immature Gran % (Auto) Neut % (Auto) Lymph % (Auto) Lake % (Auto) Eos % (Auto) Baso % (Auto) Absolute Neuts (auto) Absolute Lymphs (auto) Total Counted Differential Comment Sodium Potassium Chloride Carbon Dioxide Anion Gap BUN Creatinine Estim Creat Clear Calc Est GFR (MDRD) Af Amer Est GFR (MDRD) Non-Af BUN/Creatinine Ratio Glucose Lactic Acid Cancelled 0.9 Calcium Total Bilirubin AST ALT Alkaline Phosphatase Total Protein Albumin Globulin Albumin/Globulin Ratio Lipase Serum , Qual Urine Color Yellow Urine Clarity Clear Urine pH 6.5 Ur Specific [place] 1.005 Urine Protein Negative Urine Glucose (UA) Normal Urine Ketones Negative Urine Occult Blood Negative Urine Nitrite Negative Urine Bilirubin Negative Urine Urobilinogen Normal Ur Leukocyte Esterase Negative Urine RBC 0 SEEN Urine WBC 0 SEEN Ur Squamous Epith Cells 0-5 SEEN Urine Bacteria RARE Urine Mucus 0 SEEN 07/20/18 07/20/18 06:30 06:30 WBC 5.3 RBC 4.07 L Hgb 12.4 Hct 37.3 MCV 91.6 MCH 30.5 MCHC 33.2 RDW 13.3 RDW Differential 44.1 H Plt Count 184 MPV 9.6 Immature Gran % (Auto) 0.000 Neut % (Auto) 57.2 Lymph % (Auto) 29.6 [place] % (Auto) 5.5 Eos % (Auto) 7.5 H Baso % (Auto) 0.2 Absolute Neuts (auto) 3.0 Absolute Lymphs (auto) 1.57 Total Counted Not Reportable Differential Comment Sodium 141 Potassium 3.8 Chloride 115 H Carbon Dioxide 23.0 Anion Gap 3 L BUN 9 Creatinine 0.73 Estim Creat Clear Calc 94.28 Est GFR (MDRD) Af Amer 115 Est GFR (MDRD) Non-Af 95 BUN/Creatinine Ratio 12.4 Glucose 79 Lactic Acid Calcium 7.9 L Total Bilirubin 0.40 AST 17 ALT 16 Alkaline Phosphatase 75 Total Protein 5.9 L Albumin 2.9 L Globulin 3.0 Albumin/Globulin Ratio 1.0 Lipase Serum , Qual Urine Color Urine Clarity Urine pH Ur Specific [place] Urine Protein Urine Glucose (UA) Urine Ketones Urine Occult Blood Urine Nitrite Urine Bilirubin Urine Urobilinogen Ur Leukocyte Esterase Urine RBC Urine WBC Ur Squamous Epith Cells Urine Bacteria Urine Mucus Assessment/Plan All Active Problems (Last Reviewed 07/20/18 @ 11:28 by Corrie Chamorro PA-C) Abdominal pain (Acute) Constipation (Acute) Lower abdominal pain (Acute) Diarrhea (Acute) Epigastric abdominal pain (Acute) I have been consulted in conjunction with Dr. Hayes Impression: abdominal pain unknown etiology Plan: I have discussed this patient with Dr. Hayes. We will plan to obtain HIDA scan. If abnormal, will discuss cholecystectomy. If normal, will plan to perform an upper GI series. Patient has had the opportunity to ask and have questions answered. Patient verbally understands and agrees with the plan. Thank you for allowing us to participate in this patient's care. Code Visit Office Visits / Consults: [id number] IP Consult L3
[2018-07-20] MEDS: Acetaminophen 325 MG Tablet 650 MG PO (13:18)
[2018-07-20] MEDS: oxyCODONE 5 MG Tablet PO ×3 (13:19→21:45)
[2018-07-20 14:30] VITALS: BP 99/65; PULSE 70; RESP 18; TEMP 36.7; O2SAT 100
[2018-07-20] MEDS: 0.9% NaCl Peripheral Flush Adult/Peds IV (15:23)
[2018-07-20 19:00] VITALS: BP 109/65; PULSE 82; RESP 16; TEMP 36.7; O2SAT 99
[2018-07-20] MEDS: Temazepam 15 MG Capsule PO (21:49)
[2018-07-20 23:00] VITALS: BP 93/66; PULSE 91; RESP 16; TEMP 36.6; O2SAT 100
[2018-07-21] VITALS (15 sets, daily range): BP systolic 81–114; BP diastolic 48–83; PULSE 51–109; RESP 14–18; TEMP 36.4–37.2; O2SAT 95–100; BMI 19.8
--- NOTE | 2018-07-21 | GALL_PTH ---
PATIENT: NATALY RODRIGUEZ LOC: MS2 U#:[id number] AGE/SX: 38/F ROOM: MS219 RE07/19/[address]: Dr. Erik Vines MD : 1980 BED: 1 DIS: 07/22/2018 SPEC #: [id number] RECD: 07/21/18 13:12 STATUS: GRIS REQ #: [id number] RAKAN: 07/21/18 00:[address]: Nicolás Hayes DEPT: SURGICAL PATHOLOGY RECD BY: Darwin Prater ENTERED: 07/21/18 13:12 SP TYPE: GALLBLROSA M OSULLIVAN DR: MD Dr. Erik Santizo MD Dr. Daniel Peabody, MD No Primary Care Phys Tissues: Gallbladder, NOS Procedures: Surgery Specimen Level III Comments: @ Ordering doctor for SUIII edited from to @ by ANGELA at 07/21/18 1404 @ Submitting doctor edited from to DR.[email or web address] Duarte by ANGELA at 07/21/18 1404 HEADER OPERATION: Laparoscopic cholecystectomy PRE-OP DIAGNOSIS: Abdominal pain TISSUE SUBMITTED: Gallbladder MICROSCOPIC DIAGNOSIS Gallbladder, cholecystectomy: Mild chronic cholecystitis. No stones are identified in the container or in the gallbladder. ILYA:onel 07/22/18 MICROSCOPIC DESCRIPTION Slides are reviewed. GROSS DESCRIPTION Received is one container labeled with the patient's name and designated gallbladder. The specimen consists of a gallbladder measuring 10.5 cm in length and up to 4.5 cm in diameter. The external surface is pink-eng[place], smooth and glistening for the most part. Focally it is granular, hemorrhagic and contains cautery artifact. The gallbladder contains green-yellow mucoid bile. No stones are identified in the container or in the gallbladder. The mucosa is bile-stained and without any mass lesions. The gallbladder wall measures up to 0.1 cm in thickness. Manufacturing Test Engineer sections from the gallbladder and the cystic duct are submitted in one cassette. / ILYA:onel 07/21/18 TC:5 CPT: 87518
[2018-07-21] MEDS: Ondansetron 4 MG/2 ML Vial IV ×2 (00:46→07:22)
[2018-07-21] MEDS: Morphine 2 MG/ML Syringe IV ×4 (00:46→22:51)
[2018-07-21] MEDS: 0.9% Normal Saline 1,000 ML 125 ML IV ×5 (00:50→22:54)
[2018-07-21] MEDS: proMETHazine 25 MG/ML Syringe 6.25 MG IV ×2 (05:08→15:45)
--- NOTE | 2018-07-21 06:00 | EKG12_ITS ---
Test Reason : AM EKG Blood Pressure : / mmHG Vent. Rate : 083 BPM Atrial Rate : 083 BPM P-R Int : 180 ms QRS Dur : 090 ms QT Int : 378 ms P-R-T Axes : 059 077 077 degrees QTc Int : 444 ms Normal sinus rhythm Normal ECG Confirmed by EDILSON MANDUJANO, TAMIKO ([id number]), online editor CORRIE BROWN ([id number]) on 08/03/2018 1:56:02 PM Referred By: Corrie Chamorro Confirmed By:TAMIKO WAGGONER MD
[2018-07-21] MEDS: oxyCODONE 5 MG Tablet PO ×3 (07:04→19:23)
--- NOTE | 2018-07-21 08:48 | PCM.PN.HOSP ---
Patient Problems: Active and Suspected Problems (Last Reviewed 07/20/18 @ 11:28 by Corrie Chamorro PA-C) Abdominal pain (Acute) Subjective: Patient HIDA scan demonstrated an ejection fraction of 12% consistent with presence of fraction hepato-biliary disease. General surgery consulted and admission patient seen by Dr. Hayes with plans for patient to undergo laparoscopic cholecystectomy this morning Objective: GENERAL: Appears to be in some distress HEENT: Atraumatic; EYES; Anicteric, Normal Conjunctiva NECK; supple, normal thyroid, RESPIRATORY: Diminished to auscultation bilaterally, CARDIOVASCULAR: Regular S1 S2, GI: soft, no abdominal tenderness : No Renal angle tenderness; EXTREMITIES: No edema, no clubbing, no cyanosis. MUSCULOSKELETAL: No Joint Tenderness; no muscle waisting NEURO: Awake; no lateralizing signs. SKIN: No Rash PSYCH; Normal affect Vitals/I&O's: Vital Signs Temp Pulse Resp BP Pulse Ox 97.8 F 76 18 99/66 98 07/21/18 08:31 07/21/18 08:31 07/21/18 08:31 07/21/18 08:31 07/21/18 08:31 Oxygen Delivery Method Room Air Weight: 57.2 kg Body Mass Index (BMI) 19.8 Intake and Output for Last 24 Hours 07/19/18 07/20/18 07/21/18 23:59 23:59 23:59 Intake Total 1657 / 1657 2362 / 2362 Output Total 1300 / 1300 1200 / 1200 Balance 357 / 357 1162 / 1162 Current Medications Acetaminophen (Tylenol) 650 mg PO Q6H PRN PRN PRN Reason: Non-cardiac pain (mod-severe) Last Admin: 07/20/18 13:18 Dose: 650 mg Sodium Chloride () 1,000 mls @ 125 mls/hr IV .Q8H MILAN Last Admin: 07/21/18 00:50 Dose: 125 mls/hr Pantoprazole Sodium 40 mg/ (Sodium Chloride) 110 mls @ 330 mls/hr IV Q12 MILAN Last Admin: 07/20/18 21:49 Dose: 330 mls/hr Ketorolac Tromethamine (Toradol) 15 mg IV Q6H PRN PRN PRN Reason: PAIN Stop: 07/26/18 08:34 Morphine Sulfate () 2 mg IV Q3H PRN PRN PRN Reason: SEVERE PAIN (6-10/10) Last Admin: 07/21/18 05:08 Dose: 2 mg Ondansetron HCl (Zofran) 4 mg IV Q6H PRN PRN PRN Reason: NAUSEA Last Admin: 07/21/18 07:22 Dose: 4 mg Oxycodone HCl (Oxyir) 5 - 10 mg PO Q4H PRN PRN PRN Reason: SEVERE PAIN (6-10/10) Last Admin: 07/21/18 07:04 Dose: 10 mg Promethazine HCl (Phenergan) 6.25 mg IV Q6H PRN PRN PRN Reason: NAUSEA/VOMITING Last Admin: 07/21/18 05:08 Dose: 6.25 mg Sodium Chloride () 5 - 15 ml IV UD PRN PRN Reason: SALINE FLUSH Last Admin: 07/20/18 15:23 Dose: 10 ml Temazepam (Restoril) 15 mg PO QHS PRN PRN PRN Reason: INSOMNIA Last Admin: 07/20/18 21:49 Dose: 15 mg Medical Necessity - Tobacco Use Smoking Status: Former smoker Tobacco Use: Cigarettes Assessment/Plan All Active Problems (Last Reviewed 07/20/18 @ 11:28 by Corrie Chamorro PA-C) Abdominal pain (Acute) Constipation (Acute) Lower abdominal pain (Acute) Diarrhea (Acute) Epigastric abdominal pain (Acute) Patient is a 38-year-old lady with history of chronic abdominal pain, history of endometriosis status post hysterectomy and left oophorectomy who presented with abdominal discomfort associated with nausea and vomiting. Admitted to regular nursing floor for subsequent management. 1. Abdominal pain do suspect pain from possible adhesions following patient's hysterectomy. CT of the abdomen obtained in the emergency department did not show any significant pathology. Patient underwent subsequent evaluation with a HIDA scan on 07/20/2018,. Patient HIDA scan demonstrated an ejection fraction of 12% consistent with presence of fraction hepato-biliary disease. General surgery consulted and admission patient seen by Dr. Hayes with plans for patient to undergo laparoscopic cholecystectomy on 07/21/2018. 2. Intractable nausea vomiting suspected to be secondary to possible gastroduodenitis patient is on PPI 3. History of endometriosis status post hysterectomy and left oophorectomy 4. History of previous tobacco use apparently did quit a year prior to admission 5. DVT prophylaxis low risk did encourage early ambulation Clinical Impression(s) from Imaging Studies Hepatobiliary Scan Nuclear Medicine 07/20/18 06:30 IMPRESSION: 1. ABNORMAL 99m Tc Mebrofenin hepatobiliary imaging examination with Cholecystokinin. A. A gallbladder ejection fraction calculated to be less than 35% following the administration of Cholecystokinin is consistent with the presence of functional hepatobiliary disease (gallbladder and/or sphincter of Oddi dyskinesia) and/or organic hepatobiliary disease (chronic acalculous cholecystitis and/or cystic duct syndrome) in patients with intermediate to high pretest likelihoods of hepatobiliary illness. (Hayder Lainez et al, Journal of Nuclear Medicine 32:1695, 1990). Electronically Signed: Ariel Barr DO at 12:31 EDT Tel , Service support , Code Visit OBSV E&M: 14616 Subsequent observation care L3
[2018-07-21] MEDS: Ketorolac 15 MG/ML Vial IV ×2 (09:00→21:28)
[2018-07-21] MEDS: 0.9% NaCl Peripheral Flush Adult/Peds IV ×4 (09:01→22:51)
[2018-07-21] MEDS: Cefazolin 2 GM in 0.9% Normal Saline 100 ML IV (11:11)
--- NOTE | 2018-07-21 11:29 | PCM.OPRPT ---
Problem List (1) Biliary dyskinesia Status: Acute (2) Epigastric abdominal pain Status: Acute Report of Operation Date of Procedure: 07/21/18 Pre-Operative Diagnosis: Biliary dyskinesia, epigastric pain, nausea Post-Operative Diagnosis: Same Surgery/Procedure Performed:: Laparoscopic cholecystectomy Type of Anesthesia:: General Anesthesiologist: Osiel Dejesus Specimen's removed: Gallbladder Drains: None Estimated Blood Loss (mL): < 25 cc Fluids Replaced: 700 cc lr Description of Procedure: Patient brought in the operating placed in supine position under excellent general trach intubation the abdomen was still prepped draped usual fashion. Local was injected intravesically. Dissection was carried down to the fascia. Fascia grasped with [place]. Varies needle was placed inside the abdomen the abdomen was insufflated 15 torr. A 10/12 trocar was placed at difficulty. Patient was placed in head up rotated left position. Subxiphoid #5 trocar was placed, inferior to this another #5 trocar was placed, laterally a #5 trocar was placed. Patient was placed in the head up and rotated to the left position. The fundus of the gallbladder was grasped retracted in a cephalad direction moderate amount of adhesions were taken down sharply on the gallbladder. I dissected out the cystic duct. I placed hemoclips proximal distally and ligated the duct. Then by the cystic artery. Hemoclips were placed both proximally distally and the artery was ligated. Deliver the gallbladder from gallbladder bed with use of electrocautery had no spillage of bile or stones. Placed a specimen a specimen bag delivered through the umbilical port without difficulty. Reinflated the abdomen inspected the liver bed using electrocautery for good epistasis inspected the stomach and the duodenum this all look normal. Remove the trochars under direct visualization good hemostasis was noted close the fascia and the umbilical port with figure stitch of 0 Vicryl. Skin incisions were closed with subcu stitches of 4-0 Monocryl. Steri-Strips were applied. Sterile dressings were applied. Patient tolerated the procedure well. - Admit VTE Documentation VTE Present on Admission: No VTE Mechan Device Prophylaxis: SCD's VTE Pharm Prophylaxis ordered?: No
--- NOTE | 2018-07-21 11:33 | OP.PCM_ITS ---
Problem List (1) Biliary dyskinesia Status: Acute (2) Epigastric abdominal pain Status: Acute Report of Operation Date of Procedure: 07/21/18 Pre-Operative Diagnosis: Biliary dyskinesia, epigastric pain, nausea Post-Operative Diagnosis: Same Surgery/Procedure Performed:: Laparoscopic cholecystectomy Type of Anesthesia:: General Anesthesiologist: Osiel Dejesus Specimen's removed: Gallbladder Drains: None Estimated Blood Loss (mL): < 25 cc Fluids Replaced: 700 cc lr Description of Procedure: Patient brought in the operating placed in supine position under excellent general trach intubation the abdomen was still prepped draped usual fashion. Local was injected intravesically. Dissection was carried down to the fascia. Fascia grasped with [place]. Varies needle was placed inside the abdomen the abdomen was insufflated 15 torr. A 10/12 trocar was placed at difficulty. Patient was placed in head up rotated left position. Subxiphoid #5 trocar was placed, inferior to this another #5 trocar was placed, laterally a #5 trocar was placed. Patient was placed in the head up and rotated to the left position. The fundus of the gallbladder was grasped retracted in a cephalad direction mode rate amount of adhesions were taken down sharply on the gallbladder. I dissected out the cystic duct. I placed hemoclips proximal distally and ligated the duct. Then by the cystic artery. Hemoclips were placed both proximally distally and the artery was ligated. Deliver the gallbladder from gallbladder bed with use of electrocautery had no spillage of bile or stones. Placed a specimen a specimen bag delivered through the umbilical port without difficulty. Reinflated the abdomen inspected the liver bed using electrocautery for good epistasis inspected the stomach and the duodenum this all look normal. Remove the trochars under direct visualization good hemostasis was noted close the fascia and the umbilical port with figure stitch of 0 Vicryl. Skin incisions were closed with subcu stitches of 4-0 Monocryl. Steri-Strips were applied. Sterile dressings were applied. Patient tolerated the procedure well. - Admit VTE Documentation VTE Present on Admission: No VTE Mechan Device Prophylaxis: SCD's VTE Pharm Prophylaxis ordered?: No
[2018-07-21] MEDS: Bupivacaine Mpf 0.5% 30 ML VIAL (11:40)
[2018-07-21] MEDS: Acetaminophen 325 MG Tablet 650 MG PO (19:22)
[2018-07-21] MEDS: Temazepam 15 MG Capsule PO (21:28)
[2018-07-22] MEDS: oxyCODONE 5 MG Tablet PO ×3 (01:03→09:40)
[2018-07-22] MEDS: 0.9% NaCl Peripheral Flush Adult/Peds IV ×2 (01:04→06:48)
[2018-07-22 01:50] VITALS: BP 99/64; PULSE 104; RESP 14; TEMP 36.6; O2SAT 96
[2018-07-22] MEDS: Acetaminophen 325 MG Tablet 650 MG PO (05:18)
[2018-07-22] MEDS: Ketorolac 15 MG/ML Vial IV (06:48)
[2018-07-22] MEDS: 0.9% Normal Saline 1,000 ML 125 ML IV (06:48)
--- NOTE | 2018-07-22 07:37 | PN_ITS ---
Patient Problems: Active and Suspected Problems (Last Reviewed 07/20/18 @ 11:28 by Corire Chamorro PA-C) Abdominal pain (Acute) Biliary dyskinesia (Acute) Subjective: Patient underwent laparoscopic cholecystectomy on 07/21/2018 with plans for patient to be discharged home this morning Objective: GENERAL: Not in distress. HEENT: Atraumatic; EYES; Anicteric, Normal Conjunctiva NECK; supple, normal thyroid, RESPIRATORY: Diminished to auscultation bilaterally, CARDIOVASCULAR: Regular S1 S2, GI: soft, no abdominal tenderness : No Renal angle tenderness; EXTREMITIES: No edema, no clubbing, no cyanosis. MUSCULOSKELETAL: No Joint Tenderness; no muscle waisting NEURO: Awake; no lateralizing signs. SKIN: No Rash PSYCH; Normal affect Vitals/I&O's: Vital Signs Temp Pulse Resp BP Pulse Ox 97.9 F 104 H 14 99/64 96 07/22/18 01:50 07/22/18 01:50 07/22/18 01:50 07/22/18 01:50 07/22/18 01:50 Oxygen Delivery Method Room Air Weight: 57.2 kg Body Mass Index (BMI) 19.8 Intake and Output for Last 24 Hours 07/20/18 07/21/18 07/22/18 23:59 23:59 23:59 Intake Total 1657 / 1657 8598 / 8598 1192 / 1192 Output Total 1300 / 1300 3550 / 3550 Balance 357 / 357 5048 / 5048 1192 / 1192 Current Medications Acetaminophen (Tylenol) 650 mg PO Q6H PRN PRN PRN Reason: Non-cardiac pain (mod-severe) Last Admin: 07/22/18 05:18 Dose: 650 mg Acetaminophen (Tylenol) 1,300 mg PO DAILY PRN PRN PRN Reason: PAIN Sodium Chloride () 1,000 mls @ 125 mls/hr IV .Q8H MILAN Last Admin: 07/22/18 06:48 Dose: 125 mls/hr Pantoprazole Sodium 40 mg/ (Sodium Chloride) 110 mls @ 330 mls/hr IV Q12 MILAN Last Admin: 07/21/18 21:28 Dose: 330 mls/hr Ibuprofen (Motrin) 400 mg PO DAILY PRN PRN PRN Reason: PAIN Ketorolac Tromethamine (Toradol) 15 mg IV Q6H PRN PRN PRN Reason: PAIN Stop: 07/26/18 08:34 Last Admin: 07/22/18 06:48 Dose: 15 mg Morphine Sulfate () 2 mg IV Q3H PRN PRN PRN Reason: SEVERE PAIN (6-10/10) Last Admin: 07/21/18 22:51 Dose: 2 mg Naproxen (Naprosyn) 500 mg PO DAILY PRN PRN PRN Reason: PAIN Ondansetron HCl (Zofran) 4 mg IV Q6H PRN PRN PRN Reason: NAUSEA Last Admin: 07/21/18 07:22 Dose: 4 mg Oxycodone HCl (Oxyir) 5 - 10 mg PO Q4H PRN PRN PRN Reason: SEVERE PAIN (6-10/10) Last Admin: 07/22/18 05:18 Dose: 10 mg Promethazine HCl (Phenergan) 6.25 mg IV Q6H PRN PRN PRN Reason: NAUSEA/VOMITING Last Admin: 07/21/18 15:45 Dose: 6.25 mg Sodium Chloride () 5 - 15 ml IV UD PRN PRN Reason: SALINE FLUSH Last Admin: 07/22/18 06:48 Dose: 10 ml Temazepam (Restoril) 15 mg PO QHS PRN PRN PRN Reason: INSOMNIA Last Admin: 07/21/18 21:28 Dose: 15 mg Medical Necessity - Tobacco Use Smoking Status: Former smoker Tobacco Use: Cigarettes Assessment/Plan All Active Problems (Last Reviewed 07/20/18 @ 11:28 by Corrie Chamorro PA-C) Abdominal pain (Acute) Biliary dyskinesia (Acute) Constipation (Acute) Lower abdominal pain (Acute) Diarrhea (Acute) Epigastric abdominal pain (Acute) Patient is a 38-year-old lady with history of chronic abdominal pain, history of endometriosis status post hysterectomy and left oophorectomy who presented with abdominal discomfort associated with nausea and vomiting. Admitted to regular nursing floor for subsequent management. 1. Abdominal pain secondary to biliary dyskinesia. CT of the abdomen obtained in the emergency department did not show any significant pathology. Patient underwent subsequent evaluation with a HIDA scan on 07/20/2018,. Patient HIDA scan demonstrated an ejection fraction of 12% consistent with presence of f raction hepato-biliary disease. General surgery consulted on admission; patient seen by Dr. Hayes; patient underwent laparoscopic cholecystectomy on 07/21/2018. 2. Intractable nausea vomiting suspected to be secondary to possible gastroduodenitis patient is on PPI 3. History of endometriosis status post hysterectomy and left oophorectomy 4. History of previous tobacco use apparently did quit a year prior to admission 5. DVT prophylaxis low risk did encourage early ambulation Code Visit Inpatient E&M: 90973 Subs Hosp L2
[2018-07-22 07:51] VITALS: BP 115/83; PULSE 83; RESP 16; TEMP 37.2; O2SAT 100
[2018-07-22 08:25] LABS: Absolute Lymphocyte Count 1.71 X10^3/ul (0.83-4.51); Basophil# 0.01 X10^3/uL; Basophil% 0.2 % (0-1); Eosinophil# 0.14 X10^3/uL; Eosinophils% 2.6 % (0-5); Hematocrit 33.5 % (37-47); Hemoglobin 11.1 g/dl (12.0-15.0); Lymphocyte # 1.71 X10^3/ul (4.0); Lymphocyte % 31.6 % (19-41); Mean Corp Hgb Conc 33.1 g/gl (32-36); Mean Corpuscular Hgb 30.2 pg (27.0-32.0); Mean Corpuscular Volume 91.3 fL (81-99); Mean Platelet Vol. 9.6 fl (6.2-12.0); Monocyte# 0.51 X10^3/uL; Monocyte% 9.4 % (0-10); Neutrophil # 3.03 X10^3/uL (2.7-7.7); Platelet Count 179 K/mm3 (150-450); RBC Distribution Width CV 13.1 % (11.6-14.6); RBC Distribution Width SD 43.8 fl (35.1-43.9); Red Blood Count 3.67 M/mm3 (4.2-5.4); White Blood Count 5.4 K/mm3 (4.4-11.0)
--- NOTE | 2018-07-22 08:26 | DCINST_ITS ---
- Discharge Diagnoses Current Active Problems: Current Active and Chronic Problems (Last Reviewed 07/20/18 @ 11:28 by Corrie Chamorro PA-C) Abdominal pain (Acute) Endometriosis (Chronic) Status post left oophorectomy (Chronic) Biliary dyskinesia (Acute) You will use the following diet at home:: No restrictions Your food should be the consistency of: Regular Discharge Activity: May not drive while taking narcotic pain medications. Allergies/Adverse Reactions: Allergies nitrofurantoin macrocrystalline [From Macrodantin] Allergy (Verified 07/19/18 14:31) Mucosal lesions dicyclomine HCl [From Bentyl] Adverse Reaction (Verified 07/19/18 17:23) ANXIETY ANXIETY hydrocodone bitartrate [From Vicodin] Adverse Reaction (Verified 07/19/18 14:31) Nausea/Vom/Diarrhea prochlorperazine [From Compazine] Adverse Reaction (Verified 07/19/18 17:23) ANXIETY ANXIETY prochlorperazine edisylate [From Compazine] Adverse Reaction (Verified 07/19/18 17:23) ANXIETY ANXIETY prochlorperazine maleate [From Compazine] Adverse Reaction (Verified 07/19/18 17:23) ANXIETY ANXIETY Medications to take at Discharge Acetaminophen [Tylenol Arthritis] 1,300 mg PO PRN PRN 07/19/18 Cranberry Fruit Concentrate [Azo Cranberry] 250 mg PO DAILY 07/19/18 Ibuprofen 400 mg PO PRN PRN 07/19/18 Oxycodone HCl/Acetaminophen [Percocet 5/325] 1 - 2 tab PO Q4H PRN PRN 6 Days #30 tab 07/21/18 Ondansetron [Zofran Odt] 4 mg PO Q8H PRN PRN #14 tablet 07/22/18 The following prescriptions were given: Ondansetron [Zofran Odt] 4 mg PO Q8H PRN PRN #14 tablet PRN Reason: Nausea/Vomiting Oxycodone HCl/Acetaminophen [Percocet 5/325] 1 - 2 tab PO Q4H PRN PRN 6 Days #30 tab PRN Reason: Pain Primary Care Physician: Care Physician,No Primary [Primary Care Provider] - Please follow up with your Primary Care Physician in: in 1-2 weeks Test Results: Test results from this visit will be discussed in further detail at your follow- up appointment, if applicable. Please Follow Up With: Corrie Chamorro PA-C When: in 7 days Proposed Discharge Date: 07/22/18
[2018-07-22 08:28] LABS: POSITIVE COUNT NO; POSITIVE DIFFERENTIAL NO; POSITIVE MORPHOLOGY NO
--- NOTE | 2018-07-22 08:28 | PCM.DC.SUM ---
Discharge Date and Diagnosis - Problem List Patient Problems: Active and Suspected Problems (Last Reviewed 07/20/18 @ 11:28 by Corrie Chamorro PA-C) Abdominal pain (Acute) Biliary dyskinesia (Acute) Date of Admission: 07/19/18 Date of Discharge: 07/22/18 - Primary Discharge Diagnosis Active and Suspected Problems (Last Reviewed 07/20/18 @ 11:28 by Corrie Chamorro PA-C) Abdominal pain (Acute) Biliary dyskinesia (Acute) - Secondary Discharge Diagnosis Chronic Problems (Last Reviewed 07/20/18 @ 11:28 by Corrie Chamorro PA-C) Endometriosis (Chronic) Status post left oophorectomy (Chronic) Hospital Course and Treatment Summary of Care Provided: Patient is a 38-year-old lady with history of chronic abdominal pain, history of endometriosis status post hysterectomy and left oophorectomy who presented with abdominal discomfort associated with nausea and vomiting. Admitted to regular nursing floor for subsequent management. 1. Abdominal pain secondary to biliary dyskinesia. CT of the abdomen obtained in the emergency department did not show any significant pathology. Patient underwent subsequent evaluation with a HIDA scan on 07/20/2018,. Patient HIDA scan demonstrated an ejection fraction of 12% consistent with presence of fraction hepato-biliary disease. General surgery consulted on admission; patient seen by Dr. Hayes; patient underwent laparoscopic cholecystectomy on 07/21/2018. 2. Intractable nausea vomiting secondary to above; management as discussed above 3. History of endometriosis status post hysterectomy and left oophorectomy 4. History of previous tobacco use apparently did quit a year prior to admission 5. DVT prophylaxis low risk did encourage early ambulation Patient Problems: Active and Suspected Problems (Last Reviewed 07/20/18 @ 11:28 by Corrie Chamorro PA-C) Abdominal pain (Acute) Biliary dyskinesia (Acute) - Physical Exam General: Alert HEENT: Atraumatic Neck: Supple Lungs: Clear to auscultation Cardiovascular: Regular rate Neurological: Neuro grossly intact Psych/Mental Status: Normal Affect Vital Signs Temp Pulse Resp BP Pulse Ox 99.0 F 83 16 115/83 H 100 07/22/18 07:51 07/22/18 07:51 07/22/18 07:51 07/22/18 07:51 07/22/18 07:51 Oxygen Delivery Method Room Air Weight: 57.2 kg Body Mass Index (BMI) 19.8 Intake and Output for Last 24 Hours 07/20/18 07/21/18 07/22/18 23:59 23:59 23:59 Intake Total 1657 / 1657 8598 / 8598 1192 / 1192 Output Total 1300 / 1300 3550 / 3550 Balance 357 / 357 5048 / 5048 1192 / 1192 Laboratory Tests Past 24 Hrs 07/22/18 07/22/18 08:00 08:00 WBC Pending RBC Pending Hgb Pending Hct Pending MCV Pending MCH Pending MCHC Pending RDW Pending RDW Differential Pending Plt Count Pending Neut % (Auto) Pending Absolute Neuts (auto) Pending Total Counted Pending Sodium Pending Potassium Pending Chloride Pending Carbon Dioxide Pending Anion Gap Pending BUN Pending Creatinine Pending Est GFR (MDRD) Af Amer Pending Est GFR (MDRD) Non-Af Pending BUN/Creatinine Ratio Pending Glucose Pending Calcium Pending Total Bilirubin Pending AST Pending ALT Pending Alkaline Phosphatase Pending Total Protein Pending Albumin Pending Discharge Diet: No Restrictions Discharge Activity: May not drive while taking narcotic pain medications. Home Medications: Medications to take at Discharge Acetaminophen [Tylenol Arthritis] 1,300 mg PO PRN PRN 07/19/18 Cranberry Fruit Concentrate [Azo Cranberry] 250 mg PO DAILY 07/19/18 Ibuprofen 400 mg PO PRN PRN 07/19/18 Oxycodone HCl/Acetaminophen [Percocet 5/325] 1 - 2 tab PO Q4H PRN PRN 6 Days #30 tab 07/21/18 Ondansetron [Zofran Odt] 4 mg PO Q8H PRN PRN #14 tablet 07/22/18 Following Prescrptions Were Given to Patient: Ondansetron [Zofran Odt] 4 mg PO Q8H PRN PRN #14 tablet PRN Reason: Nausea/Vomiting Oxycodone HCl/Acetaminophen [Percocet 5/325] 1 - 2 tab PO Q4H PRN PRN 6 Days #30 tab PRN Reason: Pain Primary Care Physician: Care Physician,No Primary [Primary Care Provider] - Please follow up with your Primary Care Physician in: in 1-2 weeks Please Follow Up With: Corrie Chamorro PA-C When: in 7 days Minutes spent on discharge:: 35 Patient Condition:: Stable Medical Necessity - Tobacco Use Smoking Status: Former smoker Tobacco Use: Cigarettes Meaningful Use Info Meaningful Use Diagnoses (Choose all that apply): None applicable Code Visit Inpatient E&M: 08185 Disch Hosp
[2018-07-22 08:39] LABS: AST(SGOT) 34 U/L (15-37); Alanine Aminotransfer ALT/SGPT 30 U/L (13-56); Albumin, Serum 2.9 g/dL (3.2-5.0); Alkaline Phosphatase 69 U/L (45-117); Anion Gap 7 (5-15); BUN 3 mg/dL (7-18); BUN/Creat Ratio 4.9 RATIO (10-20); Calcium,Total 8.2 mg/dL (8.5-10.1); Chloride 114 mmol/L (98-107); Creatinine, Serum 0.62 mg/dL (0.55-1.02); EST Glomerular Filtration Rate 115 mL/min (>60); Est Glom Filt Rate - Afr Amer 140 mL/min (>60); Estimated Creatinine Clearance 111.09 ml/min; Globulin 2.8 g/dL (2.2-4.2); Glucose 87 mg/dL (74-106); Potassium 3.2 mmol/L (3.5-5.1); Protein, Total 5.7 g/dL (6.4-8.2); Sodium Level 144 mmol/L (136-145)
== END 2018-07-22 12:12 | disposition home or self-care (01) ==
LOC: ED 14:48 → MS2 18:13
PROVIDERS: Physician Assistant; Surgery; Admitting Provider Family Medicine; Emergency Provider Emergency Medicine; Visit Provider Internal Medicine
PROC: (CPT 47562; principal; 2018-07-21 11:00)
DX: K81.1 Chronic cholecystitis (principal); Z87.891 Personal history of nicotine dependence; G89.29 Other chronic pain; K21.9 Gastro-esophageal reflux disease without esophagitis; K44.9 Diaphragmatic hernia without obstruction or gangrene; K59.00 Constipation, unspecified
CPT/HCPCS: 00790; 47562; 36415; 74177; 78227; 80053; 81001; 83605; 83690; 84703; 85025; 88304; 93005; 96361; 96365; 96366; 96375; 96376; 97802; 99285; 99406; A9537; J7030; J7050; Q9967; A4216; J2405; J2805; J3490

== ENCOUNTER → 2018-08-02 10:39 | Outpatient (CLI) | payer MEDICAID, SELFPAY ==
[2018-07-21 09:25] VITALS: BMI 19.8
[2018-08-02 10:47] LABS: Mucous, Urine 0 SEEN /hpf (<or=2+); Red Blood Cells-Urine 0 SEEN /hpf (0-5); White Blood Cells 0 SEEN /hpf (0-5)
[2018-08-02 11:00] LABS: Color, Urine Yellow (Yellow); Glucose, Dipstick Normal (Normal); Ketone-Dipstick Negative (Negative); Leukocyte Esterase-Dipstick Negative /ul (Negative); Nitrite-Dipstick Negative (Negative); Occult Blood-Urine Negative /ul (Negative); Protein-Dipstick Negative (Negative); Specific Gravity, Urine 1.015 (1.002-1.030); Urine Bilirubin Dipstick Negative (Negative); Urine Clarity Sl. Cloudy (Clear); Urine Urobilinogen Normal (Normal)
[2018-08-02 11:16] LABS: Bacteria 1+ /hpf (None Seen); Squamous Epithelial Cells - UA 5-10 SEEN /hpf (5-10)
== END ==
PROVIDERS: Referring Provider Physician Assistant; Visit Provider Physician Assistant
DX: R30.0 Dysuria (principal)
CPT/HCPCS: 81001

== ENCOUNTER → 2018-08-10 14:00 | Outpatient (CLI) | payer MEDICAID, SELFPAY ==
[2018-08-10 14:08] VITALS: BMI 19.8
[2018-08-11 12:46] LABS: Amphetamine Urine VISTA NEGATIVE (<1000 ng/mL); Barbiturate Urine VISTA NEGATIVE (< 200 ng/mL); Benzodiazepine Urine VISTA POSITIVE (< 200 ng/mL); Cocaine Urine VISTA NEGATIVE (< 300 ng/mL); Ecstacy Urine VISTA NEGATIVE (< 500 ng/mL); Methadone Urine VISTA NEGATIVE (< 300 ng/mL); PCP Urine VISTA NEGATIVE (< 25 ng/mL); THC Urine VISTA NEGATIVE (< 50 ng/mL); Vista UDS pH Range 5
== END ==
PROVIDERS: PCP Internal Medicine; Visit Provider Internal Medicine
DX: F98.8 Other specified behavioral and emotional disorders with onset usually occurring in childhood and adolescence (principal)
CPT/HCPCS: 80307

== ENCOUNTER → 2018-08-16 16:53 | Outpatient (CLI) | payer MEDICAID, SELFPAY ==
[2018-08-16 14:37] VITALS: BMI 19.8
[2018-08-16 22:00] LABS: Chlamydia Trachomatis by PCR Negative (Negative); Neisserai gonorrhoeae by PCR Negative (Negative); Probe Check PASS; Sample Adequacy Control PASS; Specimen Processing Control PASS
== END ==
PROVIDERS: Referring Provider Obstetrics & Gynecology; Visit Provider Obstetrics & Gynecology
DX: R30.0 Dysuria (principal); Z11.3 Encounter for screening for infections with a predominantly sexual mode of transmission
CPT/HCPCS: 87086; 87088; 87491; 87591

== ENCOUNTER 2018-08-23 17:00 | Emergency (ER) | payer MEDICAID, SELFPAY ==
[2018-08-16 14:37] VITALS: BMI 19.8
[2018-08-23 17:01] VITALS: BP 96/54; PULSE 98; RESP 18; TEMP 37.2; O2SAT 100; BMI 18.6
[2018-08-23 17:41] LABS: Color, Urine Amber (Yellow); Glucose, Dipstick Normal (Normal); Ketone-Dipstick 15 mg/dl (Negative); Leukocyte Esterase-Dipstick Negative /ul (Negative); Nitrite-Dipstick Positive (Negative); Occult Blood-Urine 10 /ul (Negative); Protein-Dipstick 30 mg/dl (Negative); Urine Clarity Cloudy (Clear); Urine Urobilinogen 8 mg/dl (Normal)
--- NOTE | 2018-08-23 17:49 | ED.RN ---
PT STATES I AM LEAVING. ILL COME BACK IN THE MORNING.. PT ADVISED BASED ON UA TO STAY. PT DECLINES
[2018-08-23 17:51] LABS: Urine Bilirubin Dipstick 6 mg/dL (Negative)
[2018-08-23 17:52] LABS: Squamous Epithelial Cells - UA 0-5 SEEN /hpf (5-10)
[2018-08-23 17:53] LABS: Hyaline Cast 0-5 SEEN /lpf (0-5)
[2018-08-23 17:54] LABS: Bacteria 2+ /hpf (None Seen); Mucous, Urine RARE /hpf (<or=2+)
[2018-08-23 17:55] LABS: Red Blood Cells-Urine 0-5 SEEN /hpf (0-5); White Blood Cells 0-5 SEEN /hpf (0-5)
== END 2018-08-23 17:57 | disposition left against medical advice (07) ==
LOC: ED 17:54
PROVIDERS: Emergency Provider Emergency Medicine
DX: Z53.21 Procedure and treatment not carried out due to patient leaving prior to being seen by health care provider (principal)
CPT/HCPCS: 81001

== ENCOUNTER 2018-08-30 10:15 | Emergency (ER) | payer MEDICAID, SELFPAY ==
[2018-08-30 10:16] VITALS: BP 82/64; PULSE 88; RESP 16; TEMP 36.6; O2SAT 96; BMI 18.6
--- NOTE | 2018-08-30 10:27 | ED.VIS.GEN ---
History of Present Illness Chief Complaint: Complaint Informant: Patient Onset: Days - Several days ago Context: Sudden Onset Timing: Continuous Quality: Pressure and dysuria Location: Suprapubic Current Severity: Moderate Maximum Severity: Severe Worsened by: Urination Relieved by: Nothing Associated Symptoms: No fever or chills, no vomiting, no discharge and no anorexia Narrative: Patient is a 38-year-old female status post hysterectomy who presents with dysuria, frequency, urgency and suprapubic pressure sensation. She also complains of central low back pain. She denies fever or chills. She does report nausea without vomiting or diarrhea. She denies vaginal discharge. She states she has not had a recent urinary tract infection. She purchased Azo and reports no improvement. Prior similar symptoms: Yes Recent Illness/Hospitalization: No - Past Medical History (1) Anxiety Status: Chronic (2) ADHD Status: Chronic (3) Hiatal hernia Status: Acute (4) Endometriosis Status: Acute (5) Lower abdominal pain Status: Acute Past Medical History - Allergies and Home Meds Allergies/Adverse Reactions: Allergies nitrofurantoin macrocrystalline [From Macrodantin] Allergy (Verified 08/30/18 10:15) Mucosal lesions dicyclomine HCl [From Bentyl] Adverse Reaction (Verified 08/30/18 10:15) ANXIETY ANXIETY hydrocodone bitartrate [From Vicodin] Adverse Reaction (Verified 08/30/18 10:15) Nausea/Vom/Diarrhea prochlorperazine [From Compazine] Adverse Reaction (Verified 08/30/18 10:15) ANXIETY ANXIETY prochlorperazine edisylate [From Compazine] Adverse Reaction (Verified 08/30/18 10:15) ANXIETY ANXIETY prochlorperazine maleate [From Compazine] Adverse Reaction (Verified 08/30/18 10:15) ANXIETY ANXIETY Primary Care Physician: Care Physician,No Primary [NON-STAFF] - Prior records reviewed: Yes Surgical History: hysterectomy - right ovary remaining Lives: Spouse/ Significant Other, With Family Smoking Status: Former smoker Alcohol: Rare - Family History Maternal Family History: Family History (Last Reviewed 08/16/18 @ 14:37 by Mary Smith) Mother Endometriosis Aunt Cancer Grandmother Cancer Uncle Hypertension Family History: Reports: - - RA Review of Systems General: Denies: Chills, Fever, Malaise, Subjective, Sweats Cardiovascular: Denies: Chest pain, Palpitations Respiratory: Denies: Dyspnea, Cough, Dyspnea on exertion Gastrointestinal: Reports: Abdominal pain, Nausea. Denies: Vomiting, Diarrhea, Constipation, Melena, Hematochezia Genitourinary: Reports: Dysuria, Frequency. Denies: Hematuria Musculoskeletal: Reports: Back pain - Central low back pain. Denies: Myalgias, Arthralgias, Neck pain, Swelling, Extremity Pain Skin: Denies: Rash, Wounds Neurological: Denies: Headache Psych: Reports: Depression, Anxiety Hematologic: Denies: Easy bruising, Easy bleeding Physical Exam Vital Signs/Narrative: Vital Signs Temp Pulse Resp BP Pulse Ox 08/30/18 10:16 98 F 88 16 82/64 L 96 Inital Vital Signs reviewed: Yes General: Well nourished, Well developed, Acute Distress Head: Normocephalic, Atraumatic Eyes: Perrl, EOMI. Negative for: Pale conjunctiva, Scleral icterus, - ENT: Moist mucous membranes, No rhinorrhea Neck: Supple, Nontender, No lymphadenopathy, No JVD, - Cardiovascular: Regular rate, Regular rhythm, No murmurs, Normal S1, Normal S2 Respiratory: No distress, CTA bilaterally, Chest nontender Abdomen: Soft, Nondistended, No masses, Tender - Suprapubic. Negative for: Nontender, Normal bowel sounds, Guarding, Rebound tenderness, Hepatomegaly, Splenomegaly, Mass, Pulsatile mass Rectal: Deferred Back: Nontender, Normal Inspection. Negative for: CVA tenderness Extremities: Nontender, No edema Skin: Normal color, No rash, No Trauma. Negative for: Cyanosis, Jaundice Neurological: Alert, Oriented x3, Cranial nerves II-XII grossly intact, Normal Strength, Normal Sensation, Normal Gait Psychological: Normal affect, Normal Mood Diagnostic/Tx/Re-eval Laboratory Results 08/30/18 10:23 Urine Color Yellow Urine Clarity Sl. Cloudy Urine pH 6.5 Ur Specific [place] 1.015 Urine Protein 15 H Urine Glucose (UA) Normal Urine Ketones Negative Urine Occult Blood 10 H Urine Nitrite Positive H Urine Bilirubin 6 H Urine Urobilinogen 8 H Ur Leukocyte Esterase 25 H Urine RBC 0-5 SEEN Urine WBC 0-5 SEEN Ur Squamous Epith Cells 5-10 SEEN Urine Bacteria 2+ Urine Mucus 0 SEEN - Medical Decision Making UA was ordered as well as culture. Patient reports allergy to nitrofurantoin. She was treated with Bactrim. She requested pain medicine and since she has a ride she was prescribed Naprosyn 500 mg and one [place] tablet 5/325. Differential diagnosis cystitis, atypical appendicitis, ureteral calculi Patient received a dose of Bactrim in the emergency department. She was given a prescription for Bactrim. ED Disposition - Plan for ED Patient: Disposition: Home or Assisted Living Diagnosis: Acute cystitis Instructions: ED UTI Cystitis Female Prescriptions: Smz/Tmp Ds [Bactrim Ds] 1 tablet PO BID #10 tablet Referrals: Care Physician,No Primary [NON-STAFF] - Additional Instructions: 1. Your prescription was electronically transmitted to [facility] [place] your designated pharmacy of choice. 2. If no improvement in 48-72 hours, follow-up with your primary care physician. The name of your primary care physician is on your insurance card provided to you by [facility]. 3. Take 2 Azo tablets every 8 hours for the next 3 days.
[2018-08-30 10:34] LABS: Mucous, Urine 0 SEEN /hpf (<or=2+)
[2018-08-30] MEDS: HYDROcodone Bitartrate/Apap 5/325 Tablet PO (10:35)
[2018-08-30] MEDS: Smz/Tmp Ds Tablet 1 TABLET PO (10:35)
[2018-08-30] MEDS: Naproxen 250 MG Tablet 500 MG PO (10:36)
[2018-08-30 10:43] LABS: Color, Urine Yellow (Yellow); Glucose, Dipstick Normal (Normal); Ketone-Dipstick Negative (Negative); Leukocyte Esterase-Dipstick 25 /ul (Negative); Nitrite-Dipstick Positive (Negative); Occult Blood-Urine 10 /ul (Negative); Protein-Dipstick 15 mg/dl (Negative); Specific Gravity, Urine 1.015 (1.002-1.030); Urine Bilirubin Dipstick 6 mg/dL (Negative); Urine Clarity Sl. Cloudy (Clear); Urine Urobilinogen 8 mg/dl (Normal); Urine pH 6.5 (5.0 - 8.0)
[2018-08-30 10:53] LABS: Bacteria 2+ /hpf (None Seen); Red Blood Cells-Urine 0-5 SEEN /hpf (0-5); Squamous Epithelial Cells - UA 5-10 SEEN /hpf (5-10); White Blood Cells 0-5 SEEN /hpf (0-5)
[2018-08-30 11:14] VITALS: BP 113/72; PULSE 68; RESP 15; O2SAT 98
== END 2018-08-30 11:14 | disposition home or self-care (01) ==
PROVIDERS: Emergency Provider Emergency Medicine; Family Provider Family Medicine; PCP Family Medicine
DX: N30.00 Acute cystitis without hematuria (principal); K44.9 Diaphragmatic hernia without obstruction or gangrene; F90.9 Attention-deficit hyperactivity disorder, unspecified type; F41.9 Anxiety disorder, unspecified; Z88.5 Allergy status to narcotic agent; Z88.8 Allergy status to other drugs, medicaments and biological substances; Z87.891 Personal history of nicotine dependence; Z90.710 Acquired absence of both cervix and uterus
CPT/HCPCS: 81001; 87086; 87088; 99283

== ENCOUNTER 2018-10-06 08:51 | Day surgery (SDC) | payer MEDICAID, SELFPAY ==
[2018-10-03 14:26] VITALS: BMI 18.6
[2018-10-06 09:22] VITALS: BP 90/68; PULSE 79; RESP 18; TEMP 36.8; O2SAT 99
== END 2018-10-06 10:01 | disposition home or self-care (01) ==
LOC: EN 08:53
PROVIDERS: Family Provider Family Medicine; PCP Family Medicine; Referring Provider Family Medicine; Visit Provider Surgery
PROC: F00ZJWZ Instrumental Swallowing and Oral Function Assessment using Swallowing Equipment (ICD-10-PCS; CPT 43235; principal; 2018-10-06 09:25)
DX: R13.10 Dysphagia, unspecified (principal)
CPT/HCPCS: 91010

== ENCOUNTER 2019-03-05 18:11 | Emergency (ER) | payer MEDICAID, SELFPAY ==
[2018-10-21 09:32] VITALS: BMI 18.6
[2019-03-05 18:12] VITALS: BP 95/63; PULSE 83; RESP 18; TEMP 36.7; O2SAT 99; BMI 18.2
[2019-03-05 18:15] VITALS: TEMP 36.7
--- NOTE | 2019-03-05 18:23 | EKG12_ITS ---
Test Reason : DYSRHYTHMIA Blood Pressure : / mmHG Vent. Rate : 087 BPM Atrial Rate : 087 BPM P-R Int : 168 ms QRS Dur : 086 ms QT Int : 362 ms P-R-T Axes : 076 089 071 degrees QTc Int : 435 ms Normal sinus rhythm Normal ECG Confirmed by RENEE MANDUJANO, EMILY ([id number]), writer editor JAZMIN ALEXANDRA ([id number]) on 03/08/2019 11:37:33 AM Referred By: Confirmed By:EMILY DURAN MD
--- NOTE | 2019-03-05 18:27 | ED.VIS.GEN ---
History of Present Illness Chief Complaint: Cough Informant: Patient Narrative: Patient presents to the emergency department with cough and anterior chest pain. Patient states about a week ago her son had a near syncopal event and she caught him the next day she had some soreness of the chest but a couple days later she had vomiting and some diarrhea. This made her chest extremely sore to the point where she was laying around and not eating or drinking too much because it hurts so bad. She continues to cough and initially the pain was on the left side of her chest but now is on the right side of her chest. She is worried about pneumonia. She is not had a fever for couple days. No rashes. Vomiting and diarrhea have resolved. Past Medical History - Allergies and Home Meds Allergies/Adverse Reactions: Allergies nitrofurantoin macrocrystalline [From Macrodantin] Allergy (Verified 03/05/19 18:15) Mucosal lesions dicyclomine HCl [From Bentyl] Adverse Reaction (Verified 03/05/19 18:15) ANXIETY ANXIETY hydrocodone bitartrate [From Vicodin] Adverse Reaction (Verified 03/05/19 18:15) Nausea/Vom/Diarrhea prochlorperazine [From Compazine] Adverse Reaction (Verified 03/05/19 18:15) ANXIETY ANXIETY prochlorperazine edisylate [From Compazine] Adverse Reaction (Verified 03/05/19 18:15) ANXIETY ANXIETY prochlorperazine maleate [From Compazine] Adverse Reaction (Verified 03/05/19 18:15) ANXIETY ANXIETY Primary Care Physician: Suhail Jose MD [Primary Care Provider] - Surgical History: hysterectomy Smoking Status: Never smoker - Family History Maternal Family History: Family History (Last Reviewed 10/21/18 @ 09:31 by Taryn Cordero) Mother Endometriosis Aunt Cancer Grandmother Cancer Uncle Hypertension Family History: Reports: - - RA Review of Systems General: Reports: Chills, Fever, Malaise. Denies: Sweats Eyes: Denies: Visual changes - bilaterally, Diplopia ENT: Denies: Rhinorrhea, Sore throat Cardiovascular: Reports: Chest pain. Denies: Palpitations Respiratory: Reports: Cough. Denies: Dyspnea, Dyspnea on exertion Gastrointestinal: Reports: Nausea, Vomiting, Diarrhea. Denies: Abdominal pain, Melena, Hematochezia Genitourinary: Denies: Dysuria, Hematuria, Frequency Musculoskeletal: Denies: Back pain, Extremity Pain Skin: Denies: Rash, Wounds Neurological: Denies: Headache, Weakness, Numbness Physical Exam Vital Signs/Narrative: Vital Signs Temp Pulse Resp BP Pulse Ox 03/05/19 18:15 98.1 F 03/05/19 18:12 98.1 F 83 18 95/63 99 General: Well nourished, Well developed, No Acute Distress Head: Normocephalic, Atraumatic Eyes: Perrl, EOMI ENT: Moist mucous membranes, No rhinorrhea Neck: Supple, Nontender Cardiovascular: Regular rate, Regular rhythm, No murmurs Respiratory: No distress, CTA bilaterally, Chest nontender, Chest tenderness - Reproducible anterior chest wall pain with palpation and movement of torso and arm. Abdomen: Soft, Nontender, Nondistended, Normal bowel sounds Back: Nontender, Normal Inspection Extremities: Nontender, No edema Skin: Normal color, No rash Neurological: Alert, Oriented x3, Cranial nerves II-XII grossly intact, Normal Strength, Normal Sensation Psychological: Normal affect, Normal Mood Diagnostic/Tx/Re-eval - EKG Initial EKG Interpretation: Sinus Rhythm - Rate is 87 without ectopy or concerning features of ACS - Medical Decision Making Chest x-ray shows a left-sided infiltrate. She received Toradol for pain. EKG was normal sinus. Patient will be discharged home with a prescription for doxycycline and albuterol. Would recommend Motrin for pain. Patient tells me that she is going to leave here and go eat. ED Disposition - Plan for ED Patient: Disposition: Home or Assisted Living Diagnosis: Pneumonia Instructions: PNEUMONIA (Adult) Prescriptions: Doxycycline 100 mg PO BID #14 cap Prescription Printed Albuterol Inhaler [Ventolin Hfa] 2 puff INHALATION Q4H PRN PRN #1 inhaler PRN Reason: Wheezing Prescription Printed Referrals: Suhail Jose MD [Primary Care Provider] - 3-5 Days if not improving
--- NOTE | 2019-03-05 18:40 | RAD_ITS ---
STUDY: X-RAY CHEST REASON FOR EXAM: Female, 38 years old. Cough, chest pain and fever for one week. TECHNIQUE: PA and lateral views of the chest. COMPARISON: Acute abdominal series with chest, March 24, 2017. FINDINGS: The lungs are hyperexpanded. There is a left perihilar infiltrate extending into the lingula not present on the prior study. There is no demonstrated pleural abnormality. Normal size heart. Spinal mediastinum and right hilum. Normal visualized pulmonary arteries. Normal visualized aortic arch and descending thoracic aorta. Normal visualized thoracic spine. Normal visualized ribs, clavicles, and shoulders. There is no demonstrated abnormality of the visualized soft tissue structures of the upper abdomen. RAD/Chest PA and Lateral IMPRESSION: Left perihilar/lingular infiltrate. There is no other major interval change Electronically Signed: Myles Escobedo DO at 18:54 EST Tel [phone], Service support ,
[2019-03-05 19:35] VITALS: BP 104/59; PULSE 79; RESP 16; O2SAT 98
[2019-03-05] MEDS: Ketorolac 60 MG/2 ML Vial IM (19:37)
== END 2019-03-05 20:05 | disposition home or self-care (01) ==
PROVIDERS: Emergency Provider Emergency Medicine; Family Provider Family Medicine; PCP Family Medicine
DX: J18.9 Pneumonia, unspecified organism (principal)
CPT/HCPCS: 71046; 93005; 96372; 99284

== ENCOUNTER 2019-06-02 18:32 | Emergency (ER) | payer MEDICAID, SELFPAY ==
[2019-06-02 18:33] VITALS: BP 90/63; PULSE 92; RESP 16; TEMP 36.3; O2SAT 98; BMI 18.3
--- NOTE | 2019-06-02 18:52 | CT_ITS ---
STUDY: CT BRAIN WITHOUT CONTRAST REASON FOR EXAM: Female, 38 years old. Injury. RADIATION DOSAGE (If Supplied By Facility): CTDIvol = ( 60.81 ) mGy, DLP = ( 1112.69 ) mGycm TECHNIQUE: Transaxial CT imaging of the brain was performed without administration of intravenous contrast material. Individualized dose optimization techniques were used for this CT. COMPARISON: 07/10/2018 FINDINGS: There is no acute bleed or infarct. There are normal white matter tracts. The ventricles are normal in configuration. There is no hydrocephalus. There is fluid and mucosal hypertrophy in the left maxillary sinus. The visualized paranasal sinuses are otherwise clear. The mastoid air cells are well aerated. There is no skull fracture. CT/Brain/Head without Contrast IMPRESSION: No acute intracranial abnormality. Left maxillary sinusitis. Electronically Signed: Avelino Hoffmann, at 20:26 EST Tel , Service support ,
--- NOTE | 2019-06-02 19:08 | RAD_ITS ---
STUDY: X-RAY - RIGHT SHOULDER REASON FOR EXAM: Female, 38 years old. Fall. Pain. TECHNIQUE: 2 view(s) of the shoulder. COMPARISON: None. FINDINGS: There is no evidence of fracture or dislocation. There are no significant degenerative changes. There are no radiodense foreign bodies. RAD/Shoulder min 2 Views IMPRESSION: No fracture or dislocation. Electronically Signed: Avelino Hoffmann, at 20:15 EST Tel , Service support ,
[2019-06-02 19:39] VITALS: BP 94/61; PULSE 87; RESP 27; O2SAT 100
[2019-06-02] MEDS: Morphine 4 MG/ML Syringe IV (19:44)
[2019-06-02 20:03] VITALS: BP 86/58; PULSE 76; RESP 17; O2SAT 100
--- NOTE | 2019-06-02 21:13 | ED.VISSUMM ---
- ER Visit Summary Date of Service: 06/02/19 Chief Complaint: Fall History of Present Illness: The patient is a 38 F who presents after a fall that occurred 3 days ago. Patient states she fell out of bed and hit her head and right shoulder. Patient states the pain is been constant since that time. Patient states the pain is worse with movement. Patient does admit to some tingling down her right arm. Patient denies any loss of consciousness. Patient denies any weakness. Patient admits to nausea but denies any vomiting. Physical Examination: Vital signs are stable. Patient is afebrile. Patient is in no acute distress. Pupils are equal, round, and reactive to light bilaterally. Extraocular muscles are intact. Oral mucosa is pink and moist. Neck is supple. Trachea is midline. There is no JVD. Heart was regular rate and rhythm. Lungs are clear and equal bilaterally. Abdomen is soft. Bowel sounds are normal. There is no tenderness. Cranial nerves II through XII are intact. There are no focal motor or sensory deficits noted. Musculoskeletal exam reveals tenderness over the posterior aspect of the right shoulder and right occipital area. There is no bony crepitance or step-off. Range of motion of the right shoulder was limited secondary to pain. There are no deformities noted. Test Results: X-rays of the right shoulder were obtained. There is no acute fracture. These were interpreted by myself and the radiologist. CT scan of the brain was obtained and was negative. There is no acute intracranial abnormality. This was interpreted by the radiologist and reviewed by myself. Emergency Department Course and Treatment: Patient was given a dose of morphine here. Patient was advised of her findings. Patient was instructed to follow-up with her primary care physician in 5 to 7 days. Patient was instructed to use ice to the area. Patient was instructed use Tylenol or Motrin as needed for pain. Patient understood and was agreeable with the plan. All questions were answered. Disposition: Discharge home Impression: 1. Head contusion 2. Right shoulder strain This note was generated with [employer] dictation software. It may contain incorrect words, spelling, and punctuation that were not noted in review of the chart prior to signing ED Disposition - Plan for ED Patient: Disposition: Home or Assisted Living Diagnosis: Head contusion, Right shoulder strain Instructions: HEAD INJURY, No Wake-Up (Adult), Shoulder Sprain Referrals: Suhail Jose MD [Primary Care Provider] - 3-5 Days
[2019-06-02 21:18] VITALS: BP 74/56; PULSE 91; PULSE 94; RESP 20; O2SAT 98
== END 2019-06-02 21:31 | disposition home or self-care (01) ==
PROVIDERS: Emergency Provider Emergency Medicine; PCP Family Medicine
DX: S00.93XA Contusion of unspecified part of head, initial encounter (principal); S46.911A Strain of unspecified muscle, fascia and tendon at shoulder and upper arm level, right arm, initial encounter; W06.XXXA Fall from bed, initial encounter; Y93.9 Activity, unspecified; Y92.9 Unspecified place or not applicable
CPT/HCPCS: 70450; 73030; 96374; 99285; A4216

== ENCOUNTER → 2020-10-07 11:46 | Outpatient (CLI) | payer MEDICAID, SELFPAY ==
[2020-10-07 11:07] VITALS: BMI 18.3
[2020-10-07 12:10] LABS: Absolute Lymphocyte Count 1.64 X10^3/uL (0.83-4.51); Absolute Neutrophil Count 3.7 X10^3/uL (2.0-7.7); Basophil# 0.01 X10^3/uL; Basophil% 0.2 % (0-1); Eosinophil# 0.11 X10^3/uL; Eosinophils% 1.9 % (0-5); Hematocrit 45.9 % (37-47); Hemoglobin 15.1 g/dL (12.0-15.0); Lymphocyte # 1.64 X10^3/ul (0.83-4.51); Lymphocyte % 28.2 % (19-41); Mean Corp Hgb Conc 32.9 g/dL (32-36); Mean Corpuscular Hgb 29.9 pg (27.0-32.0); Mean Corpuscular Volume 90.9 fL (81-99); Mean Platelet Vol. 9.9 fl (6.2-12.0); Monocyte# 0.39 X10^3/uL; Monocyte% 6.7 % (0-10); NRBC Flagged by Analyzer 0 % (0-5); Neutrophil # 3.65 X10^3/uL (2.7-7.7); Neutrophil % 62.7 % (47-70); Platelet Count 236 K/mm3 (150-450); RBC Distribution Width CV 12.8 % (11.6-14.6); RBC Distribution Width SD 42.5 fl (35.1-43.9); Red Blood Count 5.05 M/mm3 (4.2-5.4); White Blood Count 5.8 K/mm3 (4.4-11.0)
[2020-10-07 12:48] LABS: ALB/GLOB Ratio 1.2 RATIO (0.9-2.4); AST(SGOT) 24 U/L (15-37); Alanine Aminotransfer ALT/SGPT 18 U/L (13-56); Albumin, Serum 4.4 g/dL (3.2-5.0); Alkaline Phosphatase 74 U/L (45-117); Anion Gap 9 (5-15); BUN 9 mg/dL (7-18); BUN/Creat Ratio 9.7 RATIO (10-20); Calcium,Total 9.2 mg/dL (8.5-10.1); Chloride 104 mmol/L (98-107); Cholesterol 205 mg/dL (200); Creatinine, Serum 0.93 mg/dL (0.55-1.02); EST Glomerular Filtration Rate 71 mL/min (>60); Est Glom Filt Rate - Afr Amer 86 mL/min (>60); Estradiol 116.6 pg/mL; Follicle Stimulating Hormone 7.4 mIU/mL; Globulin 3.6 g/dL (2.2-4.2); Glucose 100 mg/dL (74-106); High Density Lipoprotein 52 mg/dL; Sodium Level 136 mmol/L (136-145); Thyroid Stim Hormone (TSH) 3.46 uIU/mL (0.358-3.74); Triglycerides 105 mg/dL; Very Low Density Lipoprotein 21 mg/dL (5-40)
[2020-10-07 15:42] LABS: Vitamin D,25 Hydroxy 22.4 ng/mL
== END ==
PROVIDERS: Visit Provider Obstetrics & Gynecology
DX: R10.2 Pelvic and perineal pain (principal); G89.29 Other chronic pain
CPT/HCPCS: 36415; 80053; 80061; 82306; 82670; 83001; 84443; 85025

== ENCOUNTER → 2020-10-14 15:57 | Outpatient (CLI) | payer MEDICAID, SELFPAY ==
[2020-10-07 11:07] VITALS: BMI 18.3
--- NOTE | 2020-10-14 16:00 | BI_ITS ---
MAMMOGRAPHY - BILATERAL SCREENING REASON FOR EXAM: Female, 40 years old. Routine annual screening examination. PERTINENT HISTORY: Non-contributory. TECHNIQUE: Digital bilateral breast linette (3D mammographic acquisition) in the CC and MLO projections. 2-D mediolateral oblique (MLO) and craniocaudad (CC) views of both breasts were obtained. CAD: Full Field Digital Mammography with Computer Added Detection was performed. COMPARISON: None. Baseline examination. FINDINGS: Breast Composition: The breasts are extremely dense, which lowers the sensitivity of mammography. There are no dominant masses or suspicious calcifications. No other significant abnormalities are identified. BI/SCRN MAMM (CAD)W/LINETTE BILAT IMPRESSION: Negative screening mammogram. Yearly followup mammogram recommended. (A) ASSESSMENT CATEGORY: BIRADS Category 1: Negative. A letter regarding these results will be sent to the patient by the facility within 30 days. Approximately 10% of breast cancers are not detected by mammography. A normal mammogram should not delay biopsy of a clinically suspicious abnormality. [id number] Electronically Signed: Domingo Kenney MD at 8:36 EDT , Service support ,
== END ==
PROVIDERS: Referring Provider Obstetrics & Gynecology; Visit Provider Obstetrics & Gynecology
DX: Z12.31 Encounter for screening mammogram for malignant neoplasm of breast (principal)
CPT/HCPCS: 77063; 77067

== ENCOUNTER → 2020-10-25 16:45 | Outpatient (CLI) | payer MEDICAID, SELFPAY ==
[2020-10-07 11:07] VITALS: BMI 18.3
--- NOTE | 2020-10-25 16:50 | US_ITS ---
STUDY: ULTRASOUND OF THE FEMALE PELVIS - COMPLETE REASON FOR EXAM: Female, 40 years old. pelvic pain LMP: Status post hysterectomy and bilateral salpingectomy with left oophorectomy. TECHNIQUE: Transabdominal and Transvaginal TECHNICAL QUALITY: Adequate. COMPARISON: None. FINDINGS: The uterus is is nonvisualized consistent with known history of prior hysterectomy. The right ovary is non-visualized. The left ovary is not visualized consistent with known history of prior oophorectomy. There is no fluid in the cul-de-sac. The volume of the bladder was 313 ml. US/Transvaginal Non- IMPRESSION: That is post hysterectomy and left oophorectomy. Nonvisualized right ovary. No evidence of intrapelvic mass, free fluid or fluid collection seen. Electronically Signed: Oliva Oliveira MD at 3:52 EDT , Service support ,
== END ==
PROVIDERS: Referring Provider Obstetrics & Gynecology; Visit Provider Obstetrics & Gynecology
DX: R10.2 Pelvic and perineal pain (principal); Z90.710 Acquired absence of both cervix and uterus; Z90.722 Acquired absence of ovaries, bilateral
CPT/HCPCS: 76830

== ENCOUNTER → 2021-01-16 15:39 | Outpatient (CLI) | payer MEDICAID, SELFPAY ==
--- NOTE | 2021-01-16 15:39 | MRI_ITS ---
MR Pelvis Female WO/W Contrast 01/16/2021 4:04 PM COMPARISON: US 10/25/2020 CLINICAL HISTORY: pelvic pain TECHNIQUE: Multiplanar T1 and T2 weighted and post-gadolinium images were obtained through the pelvis. 11 cc of IV Dotarem was used. FINDINGS: Gastrointestinal: Large amount of fecal retention. Subtle diffuse increased enhancement of several small bowel loops. Bladder: Unremarkable. Reproductive organs: The right ovary contains a 2.7 x 2.3 cm well-circumscribed T1 hypointense/T2 hyperintense cyst with no enhancement. This is most likely a dominant follicle. Lymphadenopathy: Absent. Ascites: Absent. Bones: No suspicious lesions. MRI/Pelvis W/WO Contrast IMPRESSION: Subtle diffuse increased enhancement of several small bowel loops could represent enteritis in the correct clinical setting. Large amount retained stool in colon. 2.7 cm dominant follicle in the right ovary. The uterus and left ovary is surgically absent. Electronically Signed: Ivan Ku MD at 23:02 EDT Tel , Service support ,
== END ==
PROVIDERS: Visit Provider Obstetrics & Gynecology
DX: R10.2 Pelvic and perineal pain (principal); G89.29 Other chronic pain
CPT/HCPCS: 72197; A9575

== ENCOUNTER → 2021-03-13 10:45 | Outpatient (CLI) | payer MEDICAID, SELFPAY ==
[2021-03-13 11:16] LABS: Erythrocyte Sedimentation Rate 6 mm/hr (0-30)
[2021-03-13 11:17] LABS: Absolute Lymphocyte Count 1.56 X10^3/uL (0.83-4.51); Absolute Neutrophil Count 2.5 X10^3/uL (2.0-7.7); Basophil# 0.01 X10^3/uL; Basophil% 0.2 % (0-1); Eosinophil# 0.11 X10^3/uL; Eosinophils% 2.4 % (0-5); Hematocrit 39.5 % (37-47); Hemoglobin 13.7 g/dL (12.0-15.0); Lymphocyte # 1.56 X10^3/ul (0.83-4.51); Lymphocyte % 34.7 % (19-41); Mean Corp Hgb Conc 34.7 g/dL (32-36); Mean Corpuscular Hgb 30.9 pg (27.0-32.0); Mean Corpuscular Volume 89.2 fL (81-99); Mean Platelet Vol. 9.8 fl (6.2-12.0); Monocyte# 0.34 X10^3/uL; Monocyte% 7.6 % (0-10); NRBC Flagged by Analyzer 0 % (0-5); Neutrophil # 2.47 X10^3/uL (2.7-7.7); Neutrophil % 55.1 % (47-70); Platelet Count 195 K/mm3 (150-450); RBC Distribution Width CV 12.9 % (11.6-14.6); RBC Distribution Width SD 42.3 fl (35.1-43.9); Red Blood Count 4.43 M/mm3 (4.2-5.4); White Blood Count 4.5 K/mm3 (4.4-11.0)
[2021-03-13 11:31] LABS: ALB/GLOB Ratio 1.1 RATIO (0.9-2.4); AST(SGOT) 16 U/L (15-37); Alanine Aminotransfer ALT/SGPT 17 U/L (13-56); Albumin, Serum 3.7 g/dL (3.2-5.0); Alkaline Phosphatase 66 U/L (45-117); Anion Gap 5 (5-15); BUN 14 mg/dL (7-18); BUN/Creat Ratio 17.8 RATIO (10-20); CRP < 2.90 mg/L (0.0-3.0); Calcium,Total 9.1 mg/dL (8.5-10.1); Chloride 110 mmol/L (98-107); Cholesterol 170 mg/dL (200); Creatinine, Serum 0.78 mg/dL (0.55-1.02); EST Glomerular Filtration Rate 86 mL/min (>60); Est Glom Filt Rate - Afr Amer 104 mL/min (>60); Globulin 3.5 g/dL (2.2-4.2); Glucose 101 mg/dL (74-106); High Density Lipoprotein 50 mg/dL; Potassium 4.1 mmol/L (3.5-5.1); Protein, Total 7.2 g/dL (6.4-8.2); Sodium Level 137 mmol/L (136-145); Triglycerides 76 mg/dL; Very Low Density Lipoprotein 15 mg/dL (5-40)
[2021-03-14 15:08] LABS: Anti-Centromere B Ab <0.2 AI (0.0-0.9); Anti-Chromatin <0.2 AI (0.0-0.9); Anti-Jo <0.2 AI (0.0-0.9); Anti-Scleroderma-70 AB <0.2 AI (0.0-0.9); RNP Ab <0.2 AI (0.0-0.9); SJOGREN'S Anti-SS-A test < 0.2 AI (0.0-0.9); SJOGREN'S Anti-SS-B test < 0.2 AI (0.0-0.9); Smith Ab <0.2 AI (0.0-0.9)
[2021-03-14 16:44] LABS: Anti-dsDNA Ab 1 IU/mL (0-9)
== END ==
PROVIDERS: Internal Medicine Gastroenterology; Referring Provider Obstetrics & Gynecology; Visit Provider Obstetrics & Gynecology
DX: R10.9 Unspecified abdominal pain (principal)
CPT/HCPCS: 36415; 80053; 80061; 85025; 85652; 86140; 86225; 86235

== ENCOUNTER 2021-03-24 06:44 | Day surgery (SDC) | payer MEDICAID, SELFPAY ==
[2021-03-24] VITALS (7 sets, daily range): BP systolic 75–106; BP diastolic 52–87; PULSE 50–70; RESP 14–16; TEMP 36.2–36.9; O2SAT 96–99; BMI 18.6
[2021-03-24] MEDS: Lactated Ringers 1,000 ML 30 ML IV (07:16)
--- NOTE | 2021-03-24 07:45 | HP.PCM_ITS ---
History and Physical Date of Admission: 03/24/21 [facility] Medical History\ Abdominal pain Achalasia ADHD Chronic constipation Endometriosis Hiatal hernia Surgical History \ H/O: hysterectomy History of left oophorectomy Hx of cholecystectomy Family History \ Mother Endometriosis Aunt Cancer Ovary Grandmother Cancer Uncle Hypertension Social History \s) household members: children housing: apartment number of children: 2 current occupational status: unemployed pets and animals: No Smoking Status: Current every day smoker Tobacco: How many years used: 4 second hand exposure: No alcohol intake: never substance use type: marijuana and other details: cbd what type of physical activity do you participate in: walking and yoga frequency: daily seatbelt use: always do you feel safe at home: Yes HPI HPI Details: NATALY RODRIGUEZ, is a 40 F who presents to the office today for and evaluation of abdominal pain She has a long history of chronic idiopathic constipation. She also has a. possible history of achalasia. This started multiple years ago after a complicated delivery of her son. She says after that her constipation got worse.. She gets a lot of abdominal cramping that is debilitatin She says that she maintains a normal healthy lifestyle. Including exercise and healthy eating habits. She says that she has never been a particularly large woman. Besides having her ovary and uterus removed, she also had a cholecystectomy for recurrent abdominal pain thought to be secondary to biliary colic. She still continues to have abdominal pain and has been on the couch for about a week She has been to see multiple doctors in the past who have gave her a variety of opinions regarding of why she has abdominal pain. Recently she got a MRI of the pelvis to evaluate her right ovary. During the MRI they noticed that she had possible thickened small bowel and a lot of stool in her colon. She has had multiple images of her abdomen pelvis and it it showed chronic constipation. She is not had anorectal manometry or any evaluation for her constipation. She cannot tolerate a bowel prep in order to evaluate her colon. She was told that she needs a POEM procedure by Dr. Hayes. Following MRI with contrast she has not felt well and she got pain beneath her umbilicum, passing out, emesis and diarrhea. She has had pain with nausea and diarrhea alternating with constipation in the same area previously but to a much less severity with onset about a year prior. First symptom noticed was the pain. She has noted some weight loss. Previous cholecystectomy and hysterectomy, during one of these surgeries which she was told by her surgeon that she had multiple masses in her lower colon. ROS Const Constitutional: Positive for fatigue, fever(s), frequent falls, headache(s), weakness and weight change Eyes Eyes: Positive for blurry vision ENT ENT: Positive for headache(s) and difficulty swallowing Cardio Cardiology: Positive for chest pain at rest, leg pain with exertion and shortness of breath Gastro GI: Positive for abdominal pain, bloating, change in bowel habits, constipation, diarrhea, heartburn, difficulty swallowing, Blood in stool and nausea/dyspepsia Musc Musculoskeletal: Positive for abnormal gait, back pain, muscle weakness, numbness, sciatica, leg pain at night and leg pain with exertion Neuro Neurology: Positive for abnormal gait, weakness, frequent falls, headache(s), numbness and tingling Psych Psychiatric: Positive for anxiety and Positive for hyperactivity Endo Endocrine: Positive for fatigue and weight change Sachin/Lymp Hematologic/Lymphatic: Positive for easy bruising Exam Const General: cooperative and comfortable Nutritional Appearance: average body habitus and well nourished HENMT Head: normal to inspection Ears: hearing grossly normal bilaterally Nose: external nose normal Face and sinus: normal facial exam Mouth: oral mucosae normal Throat: posterior oropharynx normal Eyes General: appearance normal, both eyes and all related structures Neck Neck: normal visual inspection Chest Chest palpation & inspection: normal inspection of the chest and normal palpation of entire chest wall Resp Effort & Inspection: normal respiratory effort Auscultation: Bilateral: Clear to Auscultation Cardio Palpation: normal PMI Rate: regular rate Rhythm: regular rhythm GI Inspection: normal to inspection Auscultation: normal bowel sounds Percussion: normal to percussion Palpation: no hepatosplenomegaly Skin General: no rashes or lesions noted Neuro General: patient alert Extrem General: normal to inspection Psych Affect: normal affect Quality Reporting Tobacco Screening ([facility] 138) Smoking Status: Current every day smoker Assessment and Plan Assessment and Plan (1) Achalasia: Status: Acute Plan - Dr. Pierce Friend, DO: We will evaluate her upper GI tract to see if there is any signs achalasia. She may need empiric dilation. She had a reference to possibly needing a Heller myotomy versus a poems procedure. We will evaluate her upper GI tract to see if that is needed at this time. (2) Abdominal pain: Status: Acute Orders: Orders: Comprehensive Metabolic Profil CRP CBC W/Diff, Automated Erythrocyte Sed Rate Miscellaneous Lab Procedure Plan - Dr. Pierce Friend, DO: Her abdominal pain seems to be consistent with fibromyalgia and or IBS. However I will give her the benefit of the doubt and we will check a CMP CRP, CBC, ESR and a work-up for possible lupus. (3) Chronic constipation: Status: Chronic Plan - Dr. Stan Garibay, DO: Chronic constipation possibly secondary to slow transit constipation versus pelvic floor dysfunction as she did have traumatic pregnancies. We will evaluate that further. She will likely need a colonoscopy in the near future versus anorectal manometry. This is an updated H&P from the patient was seen in office. No changes were seen since the patient was seen in the office.
--- NOTE | 2021-03-24 07:45 | IMM_PTH ---
PATIENT: NATALY RODRIGUEZ LOC: EN U#:[id number] AGE/SX: 40/F ROOM: RE03/24/[address]: Dr. Stan Garibay DO : 1980 BED: DIS: 03/24/2021 SPEC #: [id number] RECD: 03/24/21 14:19 STATUS: GRIS REQ #: [id number] RAKAN: 03/24/21 07:[address]: Stan Garibay DEPT: IMMUNOHISTOCHEMISTRY RECD BY: Georgiana Núñez ENTERED: 03/24/21 14:20 SP TYPE: IMMUNO OTHR DR: Lizet Primary Care Phys Tissues: B - Stomach, NOS Procedures: H Pylori (initial) PHYSICIAN & INSTITUTION [place] [id number] SPECIMEN INFORMATION: Tissue Source: B ? Gastric body Clinical Info: Achalasia, abdominal pain, chronic constipation Specimen Number: [id number] CPT code: 82498 METHODOLOGY: Deparaffinized sections of prefer/formalin-fixed tissue or PAP/DQ stained slides are incubated with monoclonal/polyclonal antibodies/oligonucleotide probes. Localization is made via biotin free immunoperoxidase method. Appropriate controls are performed and reacted as expected. Results on target cell population are indicated in the following table: RESULTS: ANTIBODY / CLONE RESULT Block B H Pylori (polyclonal) negative These tests were developed and their performance characteristics determined by [facility]. They may not have been cleared or approved by the U.S. Food and Drug Administration. The FDA has determined that such clearance or approval is not necessary. INTERPRETATION: B. Gastric body, biopsy: Negative for Helicobacter pylori organisms. SJ:onel 03/25/2021
--- NOTE | 2021-03-24 07:45 | EGD_PTH ---
PATIENT: NATALY RODRIGUEZ LOC: EN U#:[id number] AGE/SX: 40/F ROOM: RE03/24/[address]: Dr. Stan Garibay DO : 1980 BED: DIS: 03/24/2021 SPEC #: [id number] RECD: 03/24/21 10:40 STATUS: GRIS REQ #: [id number] RAKAN: 03/24/21 07:[address]: Stan Garibay DEPT: SURGICAL PATHOLOGY RECD BY: Sonali Bradley ENTERED: 03/24/21 11:24 SP TYPE: EGD BIOPSY OT DR: Lizet Primary Care Phys Tissues: A - Duodenum, NOS B - Gastric mucous membrane C - Esophagus, NOS Procedures: Special Stain Group II Surgery Specimen Level IV Alcian Blue/PAS (control) HEADER OPERATION: EGD ([facility] [place]) PRE-OP DIAGNOSIS: Achalasia, abdominal pain, chronic constipation TISSUE SUBMITTED: A ? Duodenum biopsy, B ? Gastric body, C ? Distal esophagus biopsy MICROSCOPIC DIAGNOSIS A. Duodenum, biopsy: Fragments of duodenal mucosa, no pathologic diagnosis. B. Gastric body, biopsy: Mild gastritis. See microscopic description and comment. C. Distal esophagus, biopsy: Fragments of gastric mucosa with congestion, hemorrhage and mild chronic inflammation. Intestinal metaplasia (goblet cell metaplasia) not identified. See comment. SJ:rg 03/25/2021 COMMENT B. The results of immunohistochemistry for Helicobacter pylori will be reported separately ([id number]). C. Alcian blue/PAS stain with matched control is used in the evaluation of the specimen. MICROSCOPIC DESCRIPTION Slides are reviewed. B. The specimen shows fragments of gastric mucosa with chronic inflammatory cell infiltrates in the lamina propria consisting of lymphocytes and plasma cells, consistent with mild chronic gastritis. GROSS DESCRIPTION A - Received in fixative is one container labeled with the patient's name and designated duodenum biopsy. The specimen consists of multiple irregular fragments of [place] soft tissue that in aggregate measure 1 x 0.3 x 0.1 cm. The specimen is totally submitted in one cassette. B - Received in fixative is one container labeled with the patient's name and designated gastric body biopsy. The specimen consists of multiple irregular fragments of [place] soft tissue that in aggregate measure 2 x 0.3 x 0.1 cm. The specimen is totally submitted in one cassette. C - Received in fixative is one container labeled with the patient's name and designated distal esophagus biopsy. The specimen consists of two irregular fragments of [place] soft tissue that in aggregate measure 0.6 x 0.3 x 0.1 cm. The specimen is totally submitted in one cassette. / SJ:rg 03/24/21 TC:3 CPT: 79482 x3, 41975
--- NOTE | 2021-03-24 08:15 | OP.EGD_ITS ---
Patient Name: Fatmata Paredes Procedure Date: 03/24/2021 7:49 AM Date of : 1980 Age: 40 Procedure: Upper GI endoscopy Indications: Epigastric abdominal pain, Dysphagia Providers: Stan Garibay DO Medicines: See the Anesthesia note for documentation of the administered medications Patient Profile: This is a 40 year old female. Refer to note in patient chart for documentation of history and physical. Patient has symptoms of chronic abdominal cramping and dysphagia with both liquids and solids. Complications: No immediate complications. Procedure: Pre-Anesthesia Assessment: - Prior to the procedure, a History and Physical was performed, and patient medications and allergies were reviewed. The patient is competent. The risks and benefits of the procedure and the sedation options and risks were discussed with the patient. All questions were answered and informed consent was obtained. Patient identification and proposed procedure were verified by the physician in the pre-procedure area. Mental Status Examination: alert and oriented. Airway Examination: normal oropharyngeal airway and neck mobility. Respiratory Examination: clear to auscultation. CV Examination: normal. Prophylactic Antibiotics: The patient does not require prophylactic antibiotics. Prior Anticoagulants: The patient has taken no previous anticoagulant or antiplatelet agents. ASA Grade Assessment: II - A patient with mild systemic disease. After reviewing the risks and benefits, the patient was deemed in satisfactory condition to undergo the procedure. The anesthesia plan was to use moderate sedation / analgesia (conscious sedation). Immediately prior to administration of medications, the patient was re-assessed for adequacy to receive sedatives. The heart rate, respiratory rate, oxygen saturations, blood pressure, adequacy of pulmonary ventilation, and response to care were monitored throughout the procedure. The physical status of the patient was re-assessed after the procedure. After obtaining informed consent, the endoscope was passed under direct vision. Throughout the procedure, the patient's blood pressure, pulse, and oxygen saturations were monitored continuously. The pediatric colonoscope was introduced through the mouth, and advanced to the third part of duodenum. The upper GI endoscopy was accomplished without difficulty. The patient tolerated the procedure well. Moderate Sedation: Moderate (conscious) sedation was administered by the endoscopy nurse and supervised by the endoscopist. The patient's oxygen saturation, heart rate, blood pressure and response to care were monitored. Total physician intraservice time was 15 minutes. Scope In: 7:58:06 AM Scope Out: 8:08:08 AM Total Procedure Duration Time 0 hours 10 minutes 2 seconds Findings: LA Grade A (one or more mucosal breaks less than 5 mm, not extending between tops of 2 mucosal folds) esophagitis with no bleeding was found 34 to 35 cm from the incisors. Biopsies were taken with a cold forceps for histology. Verification of patient identification for the specimen was done. Estimated blood loss was minimal. One benign-appearing, intrinsic stenosis was found 37 to 38 cm from the incisors. This stenosis was mildly severe and. The stenosis was traversed. A guidewire was placed and the scope was withdrawn. Dilation was performed with a Savary dilator with no resistance at 54 Fr. The dilation site was examined and showed mild improvement in luminal narrowing. Estimated blood loss was minimal. Localized mild inflammation characterized by congestion (edema) was found in the gastric fundus. Biopsies were taken with a cold forceps for histology. Verification of patient identification for the specimen was done. Estimated blood loss was minimal. There did not appear to be much contraction of the stomach. As the ear was insufflated into the stomach it remained dilated. This is suspicious for an underlying motility disorder. The third portion of the duodenum was normal. Biopsies for histology were taken with a cold forceps for evaluation of celiac disease. Estimated blood loss was minimal. Impression: - LA Grade A reflux esophagitis. Biopsied. - Benign-appearing esophageal stenosis. Dilated. - Gastritis. Biopsied. - Normal third portion of the duodenum. Biopsied. Recommendation: - Discharge patient to home. - Resume previous diet. - Continue present medications. - Await pathology results. - Repeat upper endoscopy in 1 year for surveillance based on pathology results. - Return to GI office in 1 week. Procedure Code(s): --- Professional --- 44794, Esophagogastroduodenoscopy, flexible, transoral; with insertion of guide wire followed by passage of dilator(s) through esophagus over guide wire 21985, 59, Esophagogastroduodenoscopy, flexible, transoral; with biopsy, single or multiple 66464, 59, Moderate sedation services provided by the same physician or other qualified health wound care technician performing the diagnostic or therapeutic service that the sedation supports, requiring the presence of an independent trained observer to assist in the monitoring of the patient's level of consciousness and physiological status; initial 15 minutes of intraservice time, patient age 5 years or older CPT copyright 2017 [employer]. All rights reserved. The codes documented in this report are preliminary and upon insurance coder review may be revised to meet current compliance requirements. Stan Garibay DO 03/24/2021 8:14:53 AM This report has been signed electronically. Number of Addenda: 1 Note Initiated On: 03/24/2021 7:49 AM Addendum Number: 1 Addendum Date: 12/03/2021 7:22:28 AM MAC was used instead of moderate sedation for the patient. Stan Garibay DO 12/03/2021 7:22:32 AM This report has been signed electronically.
--- NOTE | 2021-03-24 08:15 | OP.CCLET_ITS ---
12/03/2021 No Primary Care Physician Re : Upper GI endoscopy procedure for Fatmata Paredes Dear Care Physician This procedure was performed on Wednesday, March 24, 2021. My impressions and recommendations are as follows: Impressions : - LA Grade A reflux esophagitis. Biopsied. - Benign-appearing esophageal stenosis. Dilated. - Gastritis. Biopsied. - Normal third portion of the duodenum. Biopsied. Recommendations : - Discharge patient to home. - Resume previous diet. - Continue present medications. - Await pathology results. - Repeat upper endoscopy in 1 year for surveillance based on pathology results. - Return to GI office in 1 week. My findings are described in the full procedure note, which is enclosed. If I can be of further assistance, please feel free to contact me at . Sincerely, Stan Garibay, 03/24/2021 8:14:53 AM This report has been signed electronically.
== END 2021-03-24 09:08 | disposition home or self-care (01) ==
LOC: EN 06:46 → AC 06:46
PROVIDERS: Referring Provider Internal Medicine Gastroenterology; Visit Provider Internal Medicine Gastroenterology
PROC: 0DJ08ZZ Inspection of Upper Intestinal Tract, Via Natural or Artificial Opening Endoscopic (ICD-10-PCS; CPT 43235; principal; 2021-03-24 07:40)
DX: K22.2 Esophageal obstruction (principal); K21.00 Gastro-esophageal reflux disease with esophagitis, without bleeding; K22.0 Achalasia of cardia; K29.50 Unspecified chronic gastritis without bleeding; K59.04 Chronic idiopathic constipation; F41.9 Anxiety disorder, unspecified; Z79.899 Other long term (current) drug therapy; Z20.822 Contact with and (suspected) exposure to COVID-19; Z87.891 Personal history of nicotine dependence
CPT/HCPCS: 43239; 43248; 87426; 88305; 88313; 88342; J7120; C1769; J2405

== ENCOUNTER 2021-05-26 14:34 | Outpatient (CLI) | payer MEDICAID, SELFPAY ==
[2021-05-29 18:49] LABS: H. PYLORI STOOL AG Negative (Negative)
== END 2021-05-26 23:59 | disposition home or self-care (01) ==
PROVIDERS: Referring Provider Internal Medicine Gastroenterology; Visit Provider Internal Medicine Gastroenterology
DX: K29.60 Other gastritis without bleeding (principal)

== ENCOUNTER 2021-06-13 11:43 | Emergency (ER) | payer MEDICAID, SELFPAY ==
[2021-06-13 11:48] VITALS: BP 98/85; PULSE 89; RESP 24; TEMP 36.7; O2SAT 97; BMI 17.6
--- NOTE | 2021-06-13 12:08 | CT_ITS ---
EXAM: CT ABDOMEN AND PELVIS WITH INTRAVENOUS CONTRAST CLINICAL INDICATION: Bilateral lower abdominal pain for 2 weeks TECHNIQUE: Helically acquired images were obtained of the abdomen and pelvis with intravenous contrast. This CT exam was performed using one or more of the following dose reduction techniques: automated exposure control, adjustment of the mA and/or kV according to patient size, and/or use of iterative reconstruction technique. This report was created using [employer] report generation technology. CONTRAST: IV 75mL Isovue-300 COMPARISON: None. FINDINGS: LOWER THORAX: Unremarkable. Lung bases are clear. No cardiomegaly. No significant pericardial effusion. ABDOMEN: LIVER: Unremarkable. Homogeneous. No focal mass. GALLBLADDER AND BILE DUCTS: Gallbladder is absent with expected biliary dilation suggesting prior cholecystectomy. PANCREAS: Unremarkable. No focal cystic or solid mass. SPLEEN: Unremarkable. Normal size without focal cystic or solid mass. ADRENALS: Unremarkable. No nodules. KIDNEYS AND URETERS: Unremarkable. Normal renal size and position. No hydronephrosis. STOMACH AND BOWEL: Fecal residue throughout the colon but no colon wall thickening. No stomach or bowel distention. PELVIS: APPENDIX: No evidence of acute appendicitis. BLADDER: Unremarkable. REPRODUCTIVE: Unremarkable as visualized. No mass. ABDOMEN and PELVIS: INTRAPERITONEAL SPACE: Unremarkable. No ascites or other fluid collection. No free air. BONES/JOINTS: Degenerative disc disease L5-S1. No suspicious lytic or blastic abnormality. SOFT TISSUES: Unremarkable. No discrete abdominal or pelvic wall hernia. VASCULATURE: Unremarkable. Abdominal aorta is non-dilated. LYMPH NODES: Unremarkable. No enlarged lymph nodes. CT/Abdomen/Pelvis W IV Cont ONLY IMPRESSION: No acute findings in the abdomen or pelvis. Electronically Signed: Sawyer Del Angel MD ([place]) at 12:44 EDT ,
[2021-06-13 12:10] LABS: Absolute Neutrophil Count 1.5 X10^3/uL (2.0-7.7); Basophil# 0.01 X10^3/uL; Basophil% 0.3 % (0-1); Eosinophil# 0.08 X10^3/uL; Eosinophils% 2.2 % (0-5); Hematocrit 39.1 % (37-47); Hemoglobin 13.2 g/dL (12.0-15.0); Lymphocyte % 47.5 % (19-41); Mean Corp Hgb Conc 33.8 g/dL (32-36); Mean Corpuscular Hgb 30.7 pg (27.0-32.0); Mean Corpuscular Volume 90.9 fL (81-99); Mean Platelet Vol. 9.9 fl (6.2-12.0); Monocyte# 0.31 X10^3/uL; Monocyte% 8.7 % (0-10); NRBC Flagged by Analyzer 0 % (0-5); Neutrophil # 1.47 X10^3/uL (2.7-7.7); Platelet Count 212 K/mm3 (150-450); RBC Distribution Width CV 12.7 % (11.6-14.6); RBC Distribution Width SD 41.6 fl (35.1-43.9); White Blood Count 3.6 K/mm3 (4.4-11.0)
--- NOTE | 2021-06-13 12:10 | EDS_ITS ---
HPI History of Present Illness Chief Complaint: Abd Pain Narrative Narrative: 40-year-old female with PMH of cholecystectomy, hysterectomy presents with 2-week history of abdominal pain. She has had intermittent pain in both lower quadrants that seems worse after eating. It became severe last evening and she started to have nausea and vomiting. No fever or chills. She reports urinary frequency but no dysuria or hematuria. She has a normal daily bowel movement and denies melena or hematochezia. She denies she has no chest pain, shortness of breath, or cough. [facility] Medical History (Updated 06/13/21 @ 14:42 by PARI Freeman) Abdominal pain Achalasia ADHD Anxiety Back pain Chronic constipation Difficulty swallowing Easy bruising Endometriosis Former smoker Gastric reflux Headache Hiatal hernia History of hiatal hernia History of pain when walking Injury of head and neck Syncope Home Medications naproxen 500 mg tablet 500 mg PO BID PRN #30 tab 10/09/20 [Rx Last Taken Unknown] nabumetone 500 mg tablet 500 mg PO BID #30 tab 10/10/20 [Rx Last Taken Unknown] cyclobenzaprine 10 mg tablet 10 mg PO TID PRN #30 tab 10/14/20 [Rx Last Taken Unknown] lorazepam 0.5 mg tablet 0.5 mg PO BID PRN #30 tab 03/05/21 [Rx Last Taken Unknown] hyoscyamine sulfate 0.125 mg disintegrating tablet 0.125 mg PO BID-QID PRN #60 tab 03/13/21 [Rx Last Taken Unknown] venlafaxine 75 mg capsule,extended release 24 hr 75 mg PO DAILY #30 cap 03/13/21 [Rx Last Taken Unknown] pantoprazole 40 mg tablet,delayed release 40 mg PO BID #60 tab 03/26/21 [Rx Last Taken Unknown] sucralfate 100 mg/mL oral suspension 10 ml PO QAC #1000 ml 03/26/21 [Rx Last Taken Unknown] sucralfate 1 gram tablet 1 g PO QAC #90 tab 03/27/21 [Rx Last Taken Unknown] docusate sodium 100 mg capsule 100 mg PO BID #60 cap 04/22/21 [Rx Last Taken Unknown] ondansetron 4 mg PO Q8H PRN PRN #12 tab 06/13/21 [Rx Last Taken Unknown] oxycodone-acetaminophen [Percocet] 1 tab PO Q8H PRN 3 Days #12 tab 06/13/21 [Rx Last Taken Unknown] Allergy/AdvReac Type Severity Reaction Status Date / Time naproxen Allergy Intermediate Nausea Verified 03/24/21 07:00 nitrofurantoin Allergy Mucosal Verified 03/24/21 07:00 macrocrystalline lesions [From Macrodantin] dicyclomine HCl [From Bentyl] AdvReac ANXIETY Verified 03/24/21 07:00 hydrocodone bitartrate AdvReac Nausea/Vom/ Verified 03/24/21 07:00 [From Vicodin] Diarrhea prochlorperazine AdvReac ANXIETY Verified 03/24/21 07:00 [From Compazine] prochlorperazine edisylate AdvReac ANXIETY Verified 03/24/21 07:00 [From Compazine] prochlorperazine maleate AdvReac ANXIETY Verified 03/24/21 07:00 [From Compazine] Family History Mother Endometriosis Aunt Cancer Ovary Grandmother Cancer Uncle Hypertension Surgical History H/O: hysterectomy History of left oophorectomy Hx of cholecystectomy Social History household members: children housing: apartment number of children: 2 current occupational status: unemployed pets and animals: No Smoking Status: Former smoker quit date: 03/29/17 Tobacco: How many years used: 4 second hand exposure: No alcohol intake: never substance use type: marijuana and other details: cbd what type of physical activity do you participate in: walking and yoga frequency: daily seatbelt use: always do you feel safe at home: Yes ROS ROS ED ROS Narrative Constitutional: Negative for fever, chills, malaise. Eyes: Negative for visual change. ENT: Negative for sore throat, ear pain, rhinorrhea. CVS: Negative for palpitations, chest pain, syncope. Respiratory: Negative for shortness of breath, cough, orthopnea. GI: Positive for abdominal pain, nausea, vomiting. Negative for diarrhea, constipation, melena, hematochezia. : Negative for dysuria, hematuria or frequency. Neuro: Negative for headache, motor/sensory dysfunction. Skin: Negative for rash, abscess, or wound. Musc: Negative for joint pain, swelling, trauma. Heme: Negative for easy bruising, bleeding, lymphadenopathy. EXAM Physical Exam Narrative Exam Narrative: CONST: Patient lying in bed appears in distress but nontoxic. EYES: Normal inspection. ENT: Normal inspection, moist mucous membranes. NECK: Normal inspection. RESP: No respiratory distress, CTAB. CVS: Regular rate and rhythm, no murmur, no gallop. ABD: Soft with diffuse tenderness maximal in bilateral lower quadrant, no guarding or rebound, nondistended, no hepatosplenomegaly. Normal bowel sounds x4. Back: Normal inspection, no CVA tenderness. SKIN: Color normal, no rash, warm, dry, intact. EXTREMITIES: Normal appearance, no pedal edema. NEURO: Oriented x4. PSYCH: Normal affect. Const Vital Signs: 06/13/21 11:48 06/13/21 12:16 06/13/21 13:06 Temperature 98.1 F 98.4 F 98.4 F Temperature Source Oral Temporal Temporal Pulse Rate 89 79 98 Respiratory Rate 24 H 18 16 Blood Pressure 98/85 H 116/78 105/78 Blood Pressure Mean 89 90 87 Pulse Ox 97 100 98 Oxygen Delivery Method Room Air Room Air Room Air 06/13/21 14:00 Temperature 97.6 F L Temperature Source Temporal Pulse Rate 66 Respiratory Rate 18 Blood Pressure 108/72 Blood Pressure Mean 84 Pulse Ox 98 Oxygen Delivery Method Room Air MDM MDM MDM Narrative Medical decision making narrative: Patient presents with bilateral lower abdominal pain. She appears uncomfortable but nontoxic. Vital signs show BP of 98/85, otherwise normal. She has a small body habitus and runs around this inconsistently was in the 100s/70s. On exam her abdomen is soft with bilateral lower quadrant tenderness. No guarding or rebound. No CVA tenderness. Labs show normal white count, BMP unremarkable. UA negative. Protocol hCG was obtained and is negative but patient has had prior hysterectomy. CT scan was unremarkable. A transvaginal ultrasound was obtained and was unremarkable?it could not visualize either ovary. At this time she is feeling improved after analgesia and antiemetics. I will prescribe a short course of Percocet and Zofran and refer her to DAIRY DEPARTMENT MANAGER. She was discharged in stable condition. Diagnosis 1. Abdominal pain of unknown etiology Lab Data Labs: Laboratory Results - last 24 hr 06/13/21 06/13/21 06/13/21 11:55 11:55 11:55 WBC 3.6 L RBC 4.30 Hgb 13.2 Hct 39.1 MCV 90.9 MCH 30.7 MCHC 33.8 RDW Std Deviation 41.6 RDW Coeff of Latasha 12.7 Plt Count 212 MPV 9.9 Immature Gran % (Auto) 0.300 Neut % (Auto) 41.0 L Lymph % (Auto) 47.5 H [place] % (Auto) 8.7 Eos % (Auto) 2.2 Baso % (Auto) 0.3 Absolute Neuts (auto) 1.5 L Absolute Lymphs (auto) 1.70 Nucleated RBC % 0 Sodium 138 Potassium 3.8 Chloride 109 H Carbon Dioxide 25.0 Anion Gap 4 L BUN 11 Creatinine 0.77 Estim Creat Clear Calc 78.65 Est GFR (MDRD) Af Amer 106 Est GFR (MDRD) Non-Af 88 BUN/Creatinine Ratio 14.3 Glucose 102 Calcium 9.4 Serum , Qual NEGATIVE Urine Color Urine Clarity Urine pH Ur Specific [place] Urine Protein Urine Glucose (UA) Urine Ketones Urine Occult Blood Urine Nitrite Urine Bilirubin Urine Urobilinogen Ur Leukocyte Esterase Urine RBC Urine WBC Ur Squamous Epith Cells Urine Bacteria Urine Mucus 06/13/21 13:01 WBC RBC Hgb Hct MCV MCH MCHC RDW Std Deviation RDW Coeff of Latasha Plt Count MPV Immature Gran % (Auto) Neut % (Auto) Lymph % (Auto) [place] % (Auto) Eos % (Auto) Baso % (Auto) Absolute Neuts (auto) Absolute Lymphs (auto) Nucleated RBC % Sodium Potassium Chloride Carbon Dioxide Anion Gap BUN Creatinine Estim Creat Clear Calc Est GFR (MDRD) Af Amer Est GFR (MDRD) Non-Af BUN/Creatinine Ratio Glucose Calcium Serum , Qual Urine Color Yellow Urine Clarity Clear Urine pH 8.0 Ur Specific [place] 1.010 Urine Protein Negative Urine Glucose (UA) Normal Urine Ketones 5 H Urine Occult Blood Negative Urine Nitrite Negative Urine Bilirubin Negative Urine Urobilinogen Normal Ur Leukocyte Esterase Negative Urine RBC 0 SEEN Urine WBC 5-10 SEEN Ur Squamous Epith Cells 0 SEEN Urine Bacteria 3+ Urine Mucus 0 SEEN Radiography Diagnostic Testing: Clinical Impression(s) from Imaging Studies Abdomen/Pelvis CT 06/13/21 12:08 IMPRESSION: No acute findings in the abdomen or pelvis. Electronically Signed: Sawyer Del Angel MD ([place]) at 12:44 EDT , Transvaginal US 06/13/21 13:09 IMPRESSION: Nonvisualized uterus and bilateral ovaries. No pelvic free fluid or mass seen. Limited diagnostic information. Electronically Signed: Sawyer Del Angel MD ([place]) at 14:29 EDT , Discharge Plan Triage Chief Complaint: Abd Pain Dx/Rx/DC Orders Clinical Impression: Abdominal pain of unknown cause, Nausea & vomiting Instructions: Abdominal Pain Prescriptions: New oxycodone-acetaminophen [Percocet] 5-325 mg tablet 1 tab PO Q8H PRN (Reason: pain) 3 Days Qty: 12 RF: 0 ondansetron 4 mg tablet,disintegrating 4 mg PO Q8H PRN PRN (Reason: Nausea) Qty: 12 RF: 0 No Action venlafaxine [Effexor XR] 75 mg capsule,extended release 24hr 75 mg PO DAILY Qty: 30 RF: 12 hyoscyamine sulfate 0.125 mg tablet,disintegrating 0.125 mg PO BID-QID PRN (Reason: dyspepsia) Qty: 60 RF: 12 naproxen 500 mg tablet 500 mg PO BID PRN (Reason: pain) Qty: 30 RF: 3 nabumetone 500 mg tablet 500 mg PO BID Qty: 30 RF: 5 cyclobenzaprine 10 mg tablet 10 mg PO TID PRN (Reason: muscle spasm) Qty: 30 RF: 2 lorazepam [Ativan] 0.5 mg tablet 0.5 mg PO BID PRN (Reason: anxiety) Qty: 30 RF: 0 sucralfate [Carafate] 100 mg/mL suspension 10 ml PO QAC Qty: 1000 RF: 0 pantoprazole [Protonix] 40 mg tablet,delayed release (DR/EC) 40 mg PO BID Qty: 60 RF: 2 sucralfate [Carafate] 1 gram tablet 1 g PO QAC Qty: 90 RF: 0 docusate sodium [Colace] 100 mg capsule 100 mg PO BID Qty: 60 RF: 12 Primary Care Provider: Care Physician,No Primary Referrals: Alejandra Coy DO [STAFF PHYSICIAN] - Care Physician,No Primary [Primary Care Provider] - Activity Restrictions/Additional Instructions: Today your blood work and urine look normal. We did a CAT scan and an ultrasound which showed no acute abnormalities. They were not able to visualize your ovaries. I am prescribing Percocet for pain and Zofran as needed for nausea and vomiting. Please follow-up with your DAIRY DEPARTMENT MANAGER or I provided a referral above. Disposition Disposition: Home, Self Care
[2021-06-13] MEDS: Ondansetron 4 MG/2 ML Vial IV (12:14)
[2021-06-13] MEDS: 0.9% Normal Saline 1,000 ML 999 ML IV (12:14)
[2021-06-13] MEDS: Morphine 4 MG/ML Syringe IV (12:14)
[2021-06-13 12:16] VITALS: BP 116/78; PULSE 79; PULSE 80; RESP 14; RESP 18; TEMP 36.9; O2SAT 100
[2021-06-13 12:23] LABS: Anion Gap 4 (5-15); BUN 11 mg/dL (7-18); BUN/Creat Ratio 14.3 RATIO (10-20); Calcium,Total 9.4 mg/dL (8.5-10.1); Chloride 109 mmol/L (98-107); Creatinine, Serum 0.77 mg/dL (0.55-1.02); EST Glomerular Filtration Rate 88 mL/min (>60); Est Glom Filt Rate - Afr Amer 106 mL/min (>60); Estimated Creatinine Clearance 78.65 ml/min; Glucose 102 mg/dL (74-106); Potassium 3.8 mmol/L (3.5-5.1); Sodium Level 138 mmol/L (136-145)
[2021-06-13 12:36] LABS: Internal QC Validated? YES +Cl - CLEAR BKGD; Pregnancy, Serum, hCG Quali. NEGATIVE Negative
[2021-06-13 13:06] VITALS: BP 105/78; PULSE 98; RESP 16; TEMP 36.9; O2SAT 98
[2021-06-13] MEDS: Ketorolac 15 MG/ML Vial IV (13:06)
--- NOTE | 2021-06-13 13:09 | US_ITS ---
STUDY: ULTRASOUND TRANSVAGINAL CLINICAL: Female, 40 years old. abdominal pain TECHNIQUE: Transvaginal COMPARISON: Ultrasound 10/25/2020 FINDINGS: Hysterectomy. Nonvisualized right ovary. Nonvisualized left ovary. There is no free fluid in the pelvis. No pelvic mass or fluid collection. US/Transvaginal Non- IMPRESSION: Nonvisualized uterus and bilateral ovaries. No pelvic free fluid or mass seen. Limited diagnostic information. Electronically Signed: Sawyer Del Angel MD ([place]) at 14:29 EDT Reading Location ID and State: [address] [place] [address] , Service support ,
[2021-06-13 13:12] LABS: Mucous, Urine 0 SEEN /hpf (<or=2+); Red Blood Cells-Urine 0 SEEN /hpf (0-5); Squamous Epithelial Cells - UA 0 SEEN /hpf (5-10)
[2021-06-13 13:18] LABS: Color, Urine Yellow (Yellow); Glucose, Dipstick Normal (Normal); Ketone-Dipstick 5 mg/dl (Negative); Leukocyte Esterase-Dipstick Negative /ul (Negative); Nitrite-Dipstick Negative (Negative); Occult Blood-Urine Negative /ul (Negative); Protein-Dipstick Negative (Negative); Urine Bilirubin Dipstick Negative (Negative); Urine Clarity Clear (Clear); Urine Urobilinogen Normal (Normal)
[2021-06-13 13:23] LABS: Bacteria 3+ /hpf (None Seen); White Blood Cells 5-10 SEEN /hpf (0-5)
[2021-06-13 14:00] VITALS: BP 108/72; PULSE 66; RESP 18; TEMP 36.4; O2SAT 98
[2021-06-13] MEDS: oxyCODONE 5 MG Tablet PO (14:06)
[2021-06-13 14:48] VITALS: BP 102/78; PULSE 82; RESP 16; TEMP 36.9; O2SAT 98
== END 2021-06-13 14:52 | disposition home or self-care (01) ==
PROVIDERS: Emergency Provider Physician Assistant; Visit Provider Physician Assistant
DX: R10.32 Left lower quadrant pain (principal); R10.31 Right lower quadrant pain; R11.2 Nausea with vomiting, unspecified; K21.9 Gastro-esophageal reflux disease without esophagitis; F41.9 Anxiety disorder, unspecified; Z56.0 Unemployment, unspecified; Z90.710 Acquired absence of both cervix and uterus; Z90.49 Acquired absence of other specified parts of digestive tract; Z79.899 Other long term (current) drug therapy; Z87.891 Personal history of nicotine dependence
CPT/HCPCS: 74177; 76830; 80048; 81001; 84703; 85025; 96361; 96374; 96375; 99285; J7030; Q9967; A4216; J2405

== ENCOUNTER 2021-08-29 05:58 | Day surgery (SDC) | payer MEDICAID, SELFPAY ==
[2021-08-27 13:32] LABS: Absolute Lymphocyte Count 1.96 X10^3/uL (0.83-4.51); Basophil# 0.02 X10^3/uL; Basophil% 0.4 % (0-1); Eosinophil# 0.08 X10^3/uL; Eosinophils% 1.8 % (0-5); Hematocrit 46.3 % (37-47); Lymphocyte # 1.96 X10^3/ul (0.83-4.51); Lymphocyte % 43.7 % (19-41); Mean Corp Hgb Conc 32.4 g/dL (32-36); Mean Corpuscular Hgb 30.4 pg (27.0-32.0); Mean Corpuscular Volume 93.9 fL (81-99); Mean Platelet Vol. 10.4 fl (6.2-12.0); Monocyte# 0.38 X10^3/uL; Monocyte% 8.5 % (0-10); NRBC Flagged by Analyzer 0 % (0-5); Neutrophil # 2.04 X10^3/uL (2.7-7.7); Neutrophil % 45.4 % (47-70); Platelet Count 212 K/mm3 (150-450); RBC Distribution Width CV 12.8 % (11.6-14.6); RBC Distribution Width SD 44.3 fl (35.1-43.9); Red Blood Count 4.93 M/mm3 (4.2-5.4); White Blood Count 4.5 K/mm3 (4.4-11.0)
[2021-08-27 13:40] LABS: International Normalized Ratio 1.1; Prothrombin Time (Protime)PT. 14.2 SECONDS (11.7-14.9)
[2021-08-27 13:41] LABS: Partial Thromboplast Time 27.5 Seconds (24.1-36.2)
[2021-08-27 14:06] LABS: AST(SGOT) 22 U/L (15-37); Alanine Aminotransfer ALT/SGPT 22 U/L (13-56); Albumin, Serum 4.1 g/dL (3.2-5.0); Alkaline Phosphatase 60 U/L (45-117); Bilirubin, Direct 0.09 mg/dL (0.00-0.30); Globulin 3.7 g/dL (2.2-4.2); Protein, Total 7.8 g/dL (6.4-8.2)
--- NOTE | 2021-08-28 20:45 | HP.PCM_ITS ---
History and Physical Date of Admission: 08/29/21 Intake Vital Signs 08/22/21 10:46 Height 5 ft 7 in Weight: 107 lb BMI 16.7 BP 104/80 Intake Visit Reasons: preop diag. lap Chief Complaint: pre op diag lap Dental Assistant Teacher Required: No Is patient in pain?: No Allergies naproxen Allergy (Intermediate, Verified 08/22/21 11:34) Nausea nitrofurantoin macrocrystalline [From Macrodantin] Allergy (Verified 08/22/21 11:34) Mucosal lesions dicyclomine HCl [From Bentyl] Adverse Reaction (Verified 08/22/21 11:34) ANXIETY hydrocodone bitartrate [From Vicodin] Adverse Reaction (Verified 08/22/21 11:34) Nausea/Vom/Diarrhea prochlorperazine [From Compazine] Adverse Reaction (Verified 08/22/21 11:34) ANXIETY prochlorperazine edisylate [From Compazine] Adverse Reaction (Verified 08/22/21 11:34) ANXIETY prochlorperazine maleate [From Compazine] Adverse Reaction (Verified 08/22/21 11:34) ANXIETY Medications docusate sodium 100 mg capsule 100 mg PO BID #60 cap 04/22/21 [Rx Confirmed 08/22/21] ondansetron 4 mg disintegrating tablet 4 mg PO Q8H PRN PRN #12 tab 07/16/21 [Rx Confirmed 08/22/21] Is last menstrual period known: No Post menopausal: No Patient : No : No PFSH Medical History (Updated 08/26/21 @ 20:[address] Jania Rodríguez MD) Abdominal pain Achalasia ADHD Anxiety Back pain Chronic constipation Dietary restriction Difficulty swallowing Easy bruising Endometriosis Former smoker Gastric reflux Headache Hiatal hernia History of GI bleed History of hiatal hernia History of IBS History of pain when walking Injury of head and neck PONV (postoperative nausea and vomiting) Seizures Syncope Surgical History (Updated 08/22/21 @ 11:54 by Renetta Chamorro) H/O: hysterectomy History of esophagogastroduodenoscopy (EGD) History of left oophorectomy Hx of cholecystectomy Family History Mother Endometriosis Aunt Cancer Ovary Grandmother Cancer Uncle Hypertension Social History household members: children housing: apartment number of children: 2 current occupational status: unemployed pets and animals: No Smoking Status: Former smoker quit date: 03/29/17 Tobacco: How many years used: 4 second hand exposure: No alcohol intake: never substance use type: marijuana and other details: cbd what type of physical activity do you participate in: walking and yoga frequency: daily seatbelt use: always do you feel safe at home: Yes HPI preop diag. lap Details: NATALY RODRIGUEZ is a 41 year old who presents for preop visit planning diagnostic laparoscopy and cystoscopy, possible oophorectomy only if severe endometriosis disease is encountered. she has had intermittent chronic pelvic pain worsening over time. she is having a GI evaluation due to this also. Pregancy History 3 Elective abortions Hx Para 2 Spontaneous abortions Hx # Term Pregnancies Ectopic pregnancies Hx # Pregnancies Multiple births # of living children 2 Past Pregnancies Del. Date Name GA/Weeks Outcome Route Bth Weight Gen Labor Lgth Anesthesia Del Locatn Provider FOB Unknown 06/27/2009- Amadou Unknown 07/31/2011- Terell LEON Const Constitutional: Reports as per HPI; Denies fatigue, increased appetite, poor appetite, weight gain or weight loss Cardio Card: Denies chest pain Resp Resp: Denies cough or dyspnea GI GI: Reports as per HPI : Reports as per HPI; Denies nipple discharge Skin Skin/Breast: Denies changing lesions, breast mass, breast pain, breast skin changes or nipple discharge Psych Psych: Denies anxiety or depression Exam Const General: cooperative, healthy appearing, comfortable, no acute distress, well developed and well groomed HENAR Head: normal to inspection and normocephalic Ears: hearing grossly normal bilaterally and external ears normal Nose: external nose normal Face and sinus: normal facial exam Neck Neck: normal visual inspection, full ROM and no lymphadenopathy Thyroid: thyroid normal Resp Effort & Inspection: normal respiratory effort GI Inspection: normal to inspection and non-distended Palpation: soft, no hepatosplenomegaly and no guarding General: bladder normal to palpation External Female Exam: normal external appearance, normal appearance of the urethra and no lesions Urethra: normal appearance of the urethra and normal palpation Speculum Exam - Vagina: normal appearance of the vagina and normal vaginal discharge Bimanual Exam- Vagina & Uterus: bladder normal to palpation Bimanual Exam- Adnexa, other: normal adnexae, no masses, non-tender and cul-de-sac tenderness (freely mobile large amount of stool at apex) Skin General: no rashes or lesions noted Neuro General: patient alert, moves all extremities and no focal motor deficits Extrem General: normal to inspection and no pedal edema Psych Appearance: grossly normal Mental Status: mental status grossly normal Affect: normal affect Speech and Movement: speech and movement normal Attitude: cooperative Coding Level of Care Code No Charge Diagnoses Chronic pelvic pain in female R10.2; G89.29 Assessment and Plan Assessment and Plan (1) Chronic pelvic pain in female: Status: Chronic Comment: right sided, originally planned medication but financially `not feasible due to limited coverage. proceeding with diagnostic laparosocpy, cystoscopy, and possible oophorectomy. discussed risks of early menopause and repeat surgeries and recurrence of scar tissue. possible endometriosis vs scar tissue. ct abdn pelvis nl excess stool Plan - Dr. Jania Rodríguez MD: Problem list updated and treatment plans were reviewed with the patient and relevant educational handouts given. See problem list details for specific plan information. UPDATE- I have seen the patient and performed any clinically relevant updates to the history and physical exam. Jania Rodríguez MD
[2021-08-29] VITALS (10 sets, daily range): BP systolic 91–113; BP diastolic 46–97; PULSE 47–85; RESP 16; TEMP 36.6–37.7; O2SAT 96–100; BMI 17.2
--- NOTE | 2021-08-29 | OV_PTH ---
PATIENT: NATALY RODRIGUEZ LOC: [facility] [place] U#:[id number] AGE/SX: 41/F ROOM: RE08/29/[address]: Dr. Jania Rodríguez MD : 1980 BED: DIS: 08/29/2021 SPEC #: [id number] RECD: 08/29/21 11:49 STATUS: GRIS MAYCO #: [id number] RAKAN: 08/29/21 00:[address]: Jania Rodríguez DEPT: SURGICAL PATHOLOGY RECD BY: Darwin Prater ENTERED: 08/29/21 11:50 SP TYPE: OVARY OTHR DR: No Primary Care Phys Tissues: OVARIAN CYST Procedures: Surgery Specimen Level IV HEADER OPERATION: Diagnostic laparoscopy, cystoscopy, left oophorectomy, lysis of adhesions PRE-OP DIAGNOSIS: Pelvic pain TISSUE SUBMITTED: Left ovarian cyst MICROSCOPIC DIAGNOSIS Left ovarian cyst, cystectomy: Consistent with dermoid cyst. See comment. AM:onel 09/01/2021 COMMENT Clinical correlation is suggested. Case has been reviewed in consultation with Dr. Mondragon who concurs with the above diagnosis. IDC:SJ MICROSCOPIC DESCRIPTION Slides are reviewed. GROSS DESCRIPTION Received in fixative is one container labeled with the patient's name and designated left ovarian cyst. The specimen consists of an irregular fragment of cystic, pink-england soft tissue measuring 2 x 1.2 x 1 cm. Serial sections reveal yellow-england cut surfaces. The specimen is serially sectioned along its narrow axis and totally submitted in one cassette. / AM:onel 08/29/2021 TC:1 CPT: 87255
[2021-08-29] MEDS: Lactated Ringers 1,000 ML 15 ML IV ×3 (06:43→10:52)
--- NOTE | 2021-08-29 07:43 | PCM.OPRPT ---
Problems Associated Problem List Diagnoses (1) Chronic pelvic pain in female: (2) Anxiety: (3) Dermoid cyst of left ovary: (4) Sigmoid flexure adhesions: Report of Operation Pre-Operative Diagnosis: see problem list Post-Operative Diagnosis: same Surgery/Procedure Performed:: laparoscopic left oophorectomy dermoid cyst removal, adhesiolysis cystoscopy Type of Anesthesia: General and Local Special Medications: none Specimen's removed: left ovary Drains: none Estimated Blood Loss (mL): 50 Fluids Replaced: crystalloid Description of Procedure: Patient was taken in the operating room and was placed under general anesthesia was prepped and draped in normal sterile fashion in the dorsal lithotomy position. Bladder was drained of clear urine and SCDs were on preoperatively. Sponge stick placed in the vagina attention was then paid to the abdominal portion of the procedure and the umbilicus was elevated with towel clamps and injected with Marcaine and after a 5 mm incision was made and the Veress needle was entered into the abdomen confirmed to be intra-abdominal with a low opening pressure of less than 5 mmHg. Abdomen was insufflated with CO2 gas and a 12 mm optical trocar was placed under direct visualization. A right and left lower quadrant 5 mm ports were placed under direct visualization. Abdominal exploration was performed and left sigmoid adhesions were noted which were taken down with the LigaSure device without complication to restore normal anatomy. The right ovary was within normal limits a small paratubal cyst was seen and drained with the monopolar scissors. No endometriosis implants or lesions were seen. No other scar tissue was visualized throughout the abdomen. Bowel had a normal appearance. There was a ovarian like cystic structure noted to be embedded in the left adnexal fossa. Patient had a history of a TVH and LSO however ovarian remnant was suspected and therefore a cystoscopy was performed to confirm that the stricture visualized abdominally was not coming off of the bladder. No bladder abnormalities were seen normal lining no petechiae after the bladder was filled and stretched and then drained and then refilled again. Bilateral ureteral patency was confirmed. Attention was then paid to the left adnexa and the ovarian like cystic structure began to be dissected out through dense adhesions. The structure was entered and sebaceous like material extruded out suspicious for dermoid cyst. Ovarian remnant with dermoid cyst was then suspected as a diagnosis. The remaining part of the ovary and cyst was dissected out from the ovarian fossa and removed and sent to pathology for analysis. Nicole applied over the adnexal fossa and the area over the sigmoid colon adhesiolysis. Additional cystoscopy was performed to confirm ureteral patency which was confirmed. Excellent hemostasis was noted. Liver and upper abdomen were visualized notably within normal limits and no other gross abnormalities were seen in the abdomen. All instruments removed from the abdomen after gas was desufflated. Port sites were closed with 3-0 Monocryl Steri's and op sites were applied. All instruments removed from the vagina and patient was awoken and taken recovery in stable condition. Grafts/Implants Used: none Complications none Admit VTE Documentation VTE Present on Admission: No VTE Mechan Device Prophylaxis: SCD's Multi Select Codes Urinary/Genital Urinary/Genital CPT Codes: 95217 Cystoscopy, 35670 Lysis of adhesions, laproscopic and 84299 Laproscopic BS/O
--- NOTE | 2021-08-29 07:48 | DCINST_ITS ---
Discharge Instructions Diet Discharge Diet: No restrictions Activity Discharge Activity: Return to Normal Activity, May Not Drive (for 2 weeks or while taking narcotic pain meds.), May Shower and May Take a Tub Bath (in 7 days) May resume sexual activity in: 1 week Weight Bearing Status: Full weight bearing Dressing / Incision Call your doctor if your incision/area has: Continuous Slow Oozing, Sudden Increased Bleeding, Increased Pain/ Swelling, Increased Redness and Foul Smelling Discharge Call your doctor if you observe: Fever of 101 or Higher, Using more than 1 pad per hour, Shortness of breath, Chest pain and Uncontrolled pain Suture Line Care: Avoid Pulling/Pushing and Avoid Pinching/Bending Remove Dressing in: 1 week (if present) Cleanse incision/area with: Soap & Water and Keep Dressing Clean & Dry Follow Up Care When: Call to make an appointment with your doctor for a fu/incision check in 1- 2 weeks. Test Results: Test results from this visit will be discussed in further detail at your follow-up appointment, if applicable. Discharge Plan Admission Attending Provider: Jania Rodríguez Primary Care Provider: Care Physician,Lizet Primary Discharge Orders/Prescriptions Prescriptions: New oxycodone-acetaminophen [Percocet] 5-325 mg tablet 1 tab PO Q6H PRN (Reason: pain) 7 Days Qty: 20 RF: 0 No Action docusate sodium [Colace] 100 mg capsule 100 mg PO BID Qty: 60 RF: 12 ondansetron 4 mg tablet,disintegrating 4 mg PO Q8H PRN PRN (Reason: Nausea) Qty: 12 RF: 0 Referrals / Follow Up: Care PhysicianLizet Primary [Primary Care Provider] - Disposition Disposition (needs filled in before D/C Order can be placed): Home, Self Care
[2021-08-29] MEDS: Bupivacaine Mpf 0.5% 30 ML VIAL (09:03)
[2021-08-29] MEDS: Ketorolac 30 MG/ML Syringe IV (10:15)
== END 2021-08-29 11:53 | disposition home or self-care (01) ==
LOC: SDC 05:59 → AC 06:00
PROVIDERS: Referring Provider Obstetrics & Gynecology; Visit Provider Obstetrics & Gynecology
PROC: (CPT 49320; principal; 2021-08-29 07:15)
DX: D27.1 Benign neoplasm of left ovary (principal); K56.50 Intestinal adhesions [bands], unspecified as to partial versus complete obstruction; F41.9 Anxiety disorder, unspecified; G89.29 Other chronic pain; Z90.710 Acquired absence of both cervix and uterus; Z90.721 Acquired absence of ovaries, unilateral; Z79.899 Other long term (current) drug therapy; Z87.891 Personal history of nicotine dependence
CPT/HCPCS: 58661; 00840; 36415; 80076; 85025; 85610; 85730; 86850; 86900; 86901; 88305; J7120; J2405

== ENCOUNTER 2021-10-02 18:33 | Emergency (ER) | payer MEDICAID, SELFPAY ==
[2021-10-02 18:33] VITALS: BP 111/75; PULSE 83; RESP 19; TEMP 36.8; O2SAT 99; BMI 16.9
[2021-10-02 18:37] VITALS: BP 111/75; PULSE 83; RESP 19; TEMP 36.8; O2SAT 99
--- NOTE | 2021-10-02 19:01 | CT_ITS ---
STUDY: CT Abdomen And Pelvis W/O Contrast Injection 10/02/2021 8:18 PM REASON FOR EXAM: Female, 41 years old. ABDOMINAL PAIN Kidney Stone -- Left flank pain with urgency, negative t Technologist Notes Other, BLACK STOOLS RECENTLY,LAP DONE 4 WKS AGO TECHNIQUE: Transaxial images were obtained without oral contrast, and without intravenous contrast. Individualized dose optimization techniques were used for this CT. COMPARISON: 06.13.21 FINDINGS: The visualized lung bases are unremarkable. The visualized portions of the heart are within normal limits. Unremarkable liver. There is non-visualization of the gallbladder, which may be secondary to either contraction or a prior cholecystectomy. Unremarkable spleen. Unremarkable pancreas. Unremarkable bilateral adrenal glands. No acute findings of the right kidney. No acute findings of the left kidney. Unremarkable visualized stomach. Unremarkable small intestine. Unremarkable colon. There is non-visualization of the appendix. There are no acute findings of the abdominal aorta. Unremarkable inferior vena cava. Subcentimeter mesenteric lymph nodes. Unremarkable urinary bladder. Unremarkable abdominal wall. Unremarkable osseous structures. CT/Abdomen/Pelvis without Cont IMPRESSION: (NOT LISTED IN ORDER OF SIGNIFICANCE) There are no acute findings. Other findings as above. Electronically Signed: Oleg Johnson MD at 20:20 EDT ,
[2021-10-02 19:19] LABS: Mucous, Urine 0 SEEN /hpf (<or=2+); Red Blood Cells-Urine 0 SEEN /hpf (0-5)
[2021-10-02 19:21] LABS: Absolute Lymphocyte Count 1.98 X10^3/uL (0.83-4.51); Absolute Neutrophil Count 2.1 X10^3/uL (2.0-7.7); Basophil# 0.02 X10^3/uL; Basophil% 0.4 % (0-1); Eosinophil# 0.18 X10^3/uL; Eosinophils% 3.9 % (0-5); Hematocrit 43.9 % (37-47); Hemoglobin 14.7 g/dL (12.0-15.0); Lymphocyte # 1.98 X10^3/ul (0.83-4.51); Mean Corp Hgb Conc 33.5 g/dL (32-36); Mean Corpuscular Hgb 30.6 pg (27.0-32.0); Mean Corpuscular Volume 91.3 fL (81-99); Mean Platelet Vol. 10.2 fl (6.2-12.0); Monocyte# 0.37 X10^3/uL; NRBC Flagged by Analyzer 0 % (0-5); Neutrophil # 2.05 X10^3/uL (2.7-7.7); Neutrophil % 44.5 % (47-70); Platelet Count 206 K/mm3 (150-450); RBC Distribution Width CV 12.3 % (11.6-14.6); RBC Distribution Width SD 41.1 fl (35.1-43.9); Red Blood Count 4.81 M/mm3 (4.2-5.4); White Blood Count 4.6 K/mm3 (4.4-11.0)
[2021-10-02] MEDS: Ketorolac 15 MG/ML Vial IV (19:21)
[2021-10-02] MEDS: Ondansetron 4 MG/2 ML Vial IV (19:21)
[2021-10-02] MEDS: 0.9% Normal Saline 1,000 ML 250 ML IV (19:21)
[2021-10-02] MEDS: Morphine 4 MG/ML Syringe IV (19:22)
[2021-10-02 19:24] LABS: Color, Urine Yellow (Yellow); Glucose, Dipstick Normal (Normal); Ketone-Dipstick Negative (Negative); Leukocyte Esterase-Dipstick 25 /ul (Negative); Nitrite-Dipstick Positive (Negative); Occult Blood-Urine Negative /ul (Negative); Protein-Dipstick Negative (Negative); Urine Clarity Sl. Cloudy (Clear); Urine Urobilinogen 4 mg/dl (Normal)
[2021-10-02 19:27] LABS: Urine Bilirubin Dipstick 1 mg/dL (Negative)
[2021-10-02 19:29] LABS: Squamous Epithelial Cells - UA 0-5 SEEN /hpf (5-10); White Blood Cells 0-5 SEEN /hpf (0-5)
[2021-10-02 19:30] LABS: Amorphous Sediment 1+ PHOS; Bacteria RARE /hpf (None Seen)
--- NOTE | 2021-10-02 19:33 | EX.ED.DYSGE1 ---
HPI History of Present Illness Chief Complaint: Abd Pain Detail of Chief Complaint: Left lower quadrant pain now complaining of left flank pain Informant: patient Onset/Context/Timing Onset: Yesterday Context: Sudden Onset Timing: Continuous and Waxes and wanes Quality: Labor like pain Location: Presently left flank Current Severity: Severe Maximum Severity: Severe Worsened by: Nothing specific Relieved by: Nothing Associated Symptoms Associated Symptoms: Nausea and urgency Narrative Narrative: Patient is a 41-year-old woman who had surgery by Dr. Estuardo Hernandez for dermoid cyst on the left. She presents because of initial left lower quadrant pain that radiated to the left flank. She present complains of left flank pain. She states it feels worse than her labor pain. She also reports urgency. She denies hematuria. She has no known history of renal ureterolithiasis. Father has had kidney stones. She does report temperature greater than 100. She denies headache, visual, ocular auditory symptoms. She denies upper respiratory infectious symptoms. She denies vomiting or diarrhea. She denies history of pyelonephritis. Prior similar symptoms: No Recent Illness/Hospitalization: Yes [facility] Medical History Abdominal pain Achalasia ADHD Anxiety Back pain Chronic constipation Chronic pelvic pain in female Dermoid cyst of left ovary Dietary restriction Difficulty swallowing Easy bruising Endometriosis Former smoker Gastric reflux Headache Hiatal hernia History of GI bleed History of hiatal hernia History of IBS History of pain when walking Injury of head and neck PONV (postoperative nausea and vomiting) Seizures Sigmoid flexure adhesions Syncope Home Medications ondansetron 4 mg disintegrating tablet 4 mg PO Q8H PRN PRN Nausea #12 tabs 09/04/21 [Rx Last Taken Unknown] sulfamethoxazole 800 mg-trimethoprim 160 mg tablet 1 tab PO BID #6 TABLETS 10/02/21 [Rx Last Taken Unknown] Allergy/AdvReac Type Severity Reaction Status Date / Time naproxen Allergy Intermediate Nausea Verified 10/02/21 18:37 nitrofurantoin Allergy Mucosal Verified 10/02/21 18:37 macrocrystalline lesions [From Macrodantin] adhesive AdvReac Rash Verified 10/02/21 18:37 dicyclomine HCl [From Bentyl] AdvReac ANXIETY Verified 10/02/21 18:37 hydrocodone bitartrate AdvReac Nausea/Vom/ Verified 10/02/21 18:37 [From Vicodin] Diarrhea prochlorperazine AdvReac ANXIETY Verified 10/02/21 18:37 [From Compazine] prochlorperazine edisylate AdvReac ANXIETY Verified 10/02/21 18:37 [From Compazine] prochlorperazine maleate AdvReac ANXIETY Verified 10/02/21 18:37 [From Compazine] Family History Mother Endometriosis Aunt Cancer Ovary Grandmother Cancer Uncle Hypertension Surgical History H/O laparoscopy H/O: hysterectomy History of esophagogastroduodenoscopy (EGD) History of left oophorectomy Hx of cholecystectomy Status post left oophorectomy Social History household members: children housing: apartment number of children: 2 current occupational status: unemployed pets and animals: No Smoking Status: Former smoker quit date: 03/29/17 Tobacco: How many years used: 4 second hand exposure: No alcohol intake: never substance use type: marijuana and other details: cbd what type of physical activity do you participate in: walking and yoga frequency: daily seatbelt use: always do you feel safe at home: Yes ROS ROS ED Constitutional Constitutional ED: Reports fever(s) and weight loss; Denies chills, subjective or sweats Eyes Eyes: Denies blurry vision, change in vision or diplopia ENT ENT ED: Denies ear pain, rhinorrhea or sore throat Cardiovascular Cardiovascular: Denies chest pain, palpitations or racing heartbeat Respiratory/Chest Respiratory/Chest: Denies cough, dyspnea or dyspnea on exertion Gastrointestinal Gastrointestinal: Reports abdominal pain and nausea; Denies constipation, diarrhea, melena or vomiting Genitourinary Genitourinary ED: Reports urinary frequency and other Details: Urgency. ; Denies dysuria or hematuria Musculoskeletal Musculoskeletal: Reports back pain; Denies arthralgias, myalgias or neck pain Integumentary Denies Abrasions or rash Neurologic Neurologic: Denies headache(s), paresthesias or weakness Psychiatric Psychiatric: Reports anxiety Endocrine Endocrinology: Denies cold intolerance or heat intolerance Hematologic/Lymphatic Hematologic/Lymphatic: Reports systems reviewed and no addt'l complaints, except as documented EXAM Physical Exam Const Vital Signs: 10/02/21 18:33 10/02/21 18:37 Temperature 98.2 F 98.2 F Temperature Source Temporal Temporal Pulse Rate 83 83 Respiratory Rate 19 H 19 H Blood Pressure 111/75 111/75 Blood Pressure Mean 87 87 Pulse Ox 99 99 Oxygen Delivery Method Room Air Room Air Positive well nourished and well developed; Negative for contractures or unkempt Constitutional Narrative: Patient appears uncomfortable. Patient is very thin with a BMI of 17. General Appearance ED: well developed; Negative for unkempt, contractures, cyanotic, diaphoretic, NAD or pallor HEENT Reports dry mucous membranes HEENT Narrative: Ears are normal. Nares patent. Mucosa is dry. Uvula is midline. There is no erythema or exudate. Negative for trauma or tenderness Mouth ED: Yes dry mucous membranes Mouth: dry mucous membranes Eyes PERRL and EOMs intact bilaterally General Eye ED: Negative for pale conjunctiva or scleral icterus Neck no lymphadenopathy, supple and no JVD Resp normal respiratory effort and clear to auscultation bilaterally Cardio regular rate, regular rhythm, S1 normal heart sound, S2 normal heart sound and no murmurs GI non-distended and no masses; Negative for hepatosplenomegaly Inspection: Negative for abdominal distention Auscultation: normoactive bowel sounds and hypoactive bowel sounds Palpation: soft and tender LLQ; Negative for splenomegaly, mass or rebound tenderness present Back/Spine General Back: CVA tenderness Cervical Spine: Negative for cervical spine tenderness Thoracic Spine / Upper Back: Negative for thoracic spinal tenderness Lumbar Spine / Lower Back: Negative for lumbar spinal tenderness Extremity normal to inspection General Extremety ED: Negative for edema, tenderness or other findings General Extremity: Negative for edema or other findings Neuro oriented x3, CN's II-XII intact bilaterally and no sensory deficits noted Sensorium / Orientation: alert Sensory Exam: sensory level loss detected Motor Exam: strength 5/5 throughout Psych Appearance: Negative for unkempt Skin no rashes or lesions noted, no wounds and No skin turgor normal General Skin Exam: elasticity normal; Negative for jaundice or pallor MDM MDM MDM Narrative Medical decision making narrative: Patient status post removal of dermoid cyst on the left less than 1 month ago. With patient reporting fever need to evaluate for pyelonephritis versus obstructing stone with infection. CBC, BMP and UA were obtained. A CT of the abdomen pelvis without contrast was ordered as well. Lab Data Attestation: I reviewed the patient's lab results. Lab results narrative: White count and differential are unremarkable. Basic metabolic panel is unremarkable. Urine is positive for nitrites and leukoesterase negative for blood on the macro. Micro reveals 0 RBCs, 0-5 WBCs and 0-5 epithelial cells with rare bacteria., 0-5 WBCs Labs: Laboratory Results - last 24 hr 10/02/21 10/02/21 10/02/21 19:10 19:12 19:12 WBC 4.6 RBC 4.81 Hgb 14.7 Hct 43.9 MCV 91.3 MCH 30.6 MCHC 33.5 RDW Std Deviation 41.1 RDW Coeff of Latasha 12.3 Plt Count 206 MPV 10.2 Immature Gran % (Auto) 0.200 Neut % (Auto) 44.5 L Lymph % (Auto) 43.0 H [place] % (Auto) 8.0 Eos % (Auto) 3.9 Baso % (Auto) 0.4 Absolute Neuts (auto) 2.1 Absolute Lymphs (auto) 1.98 Nucleated RBC % 0 Sodium 139 Potassium 3.7 Chloride 107 Carbon Dioxide 30.0 Anion Gap 2 L BUN 13 Creatinine 0.83 Estim Creat Clear Calc 69.28 Est GFR (MDRD) Af Amer 97 Est GFR (MDRD) Non-Af 80 BUN/Creatinine Ratio 15.6 Glucose 101 Calcium 9.4 Urine Color Yellow Urine Clarity Sl. Cloudy Urine pH 8.0 Ur Specific [place] 1.010 Urine Protein Negative Urine Glucose (UA) Normal Urine Ketones Negative Urine Occult Blood Negative Urine Nitrite Positive H Urine Bilirubin 1 H Urine Urobilinogen 4 H Ur Leukocyte Esterase 25 H Urine RBC 0 SEEN Urine WBC 0-5 SEEN Ur Squamous Epith Cells 0-5 SEEN Amorphous Sediment 1+ PHOS Urine Bacteria RARE Urine Mucus 0 SEEN Radiography Diagnostic Testing: Clinical Impression(s) from Imaging Studies Abdomen/Pelvis CT 10/02/21 19:01 IMPRESSION: (NOT LISTED IN ORDER OF SIGNIFICANCE) There are no acute findings. Other findings as above. Electronically Signed: Oleg Johnson MD at 20:20 EDT , Treatment and Re-Evaluation Narrative: Patient states her pain is improved. She was informed the cause of her pain is unknown. She was placed on a 3-day course of Bactrim since she has allergy to Macrobid. Discharge Plan Triage Chief Complaint: Abd Pain Other Complaint: Back ED Provider: Marcel Yung Dx/Rx/DC Orders Clinical Impression: Acute left flank pain, Bacteria in urine Instructions: ED Flank Pain, Uncertain Cause Prescriptions: New sulfamethoxazole-trimethoprim [sulfamethoxazole-trimethoprim] 800-160 mg tablet 1 tab PO BID Qty: 6 0RF No Action ondansetron 4 mg tablet,disintegrating 4 mg PO Q8H PRN PRN (Reason: Nausea) Qty: 12 0RF Primary Care Provider: Care Physician,No Primary Referrals: Care Physician,No Primary [Primary Care Provider] - Disposition Disposition: Home, Self Care
[2021-10-02 19:36] LABS: BUN 13 mg/dL (7-18); BUN/Creat Ratio 15.6 RATIO (10-20); Calcium,Total 9.4 mg/dL (8.5-10.1); Chloride 107 mmol/L (98-107); Creatinine, Serum 0.83 mg/dL (0.55-1.02); EST Glomerular Filtration Rate 80 mL/min (>60); Est Glom Filt Rate - Afr Amer 97 mL/min (>60); Estimated Creatinine Clearance 69.28 ml/min; Glucose 101 mg/dL (74-106); Potassium 3.7 mmol/L (3.5-5.1); Sodium Level 139 mmol/L (136-145)
[2021-10-02 19:37] LABS: Anion Gap 2 (5-15)
[2021-10-02] MEDS: Nitrofurantoin Macrocrystals 100 MG Capsule PO (20:44)
[2021-10-02] MEDS: Smz/Tmp Ds Tablet 1 TABLET PO (20:44)
[2021-10-02 20:51] VITALS: BP 102/64; PULSE 81; RESP 16
== END 2021-10-02 20:51 | disposition home or self-care (01) ==
PROVIDERS: Emergency Provider Emergency Medicine; Visit Provider Emergency Medicine
DX: R10.32 Left lower quadrant pain (principal); R82.71 Bacteriuria; Z87.891 Personal history of nicotine dependence; Z84.1 Family history of disorders of kidney and ureter
CPT/HCPCS: 74176; 80048; 81001; 85025; 96361; 96374; 96375; 99283; J7030; A4216; J2405

== ENCOUNTER 2021-12-31 12:51 | Emergency (ER) | payer MEDICAID, SELFPAY ==
[2021-12-31 12:52] VITALS: BP 107/73; PULSE 91; RESP 18; TEMP 36.7; O2SAT 99; BMI 16.6
--- NOTE | 2021-12-31 14:22 | CT_ITS ---
STUDY: CT ABDOMEN AND PELVIS WITHOUT CONTRAST REASON FOR EXAM: Female, 41 years old. 2 week history of abdominal pain. History of chronic constipation. RADIATION DOSAGE (If Supplied By Facility): CTDIvol = ( 6.04 ) mGy, DLP = ( 291.44 ) mGycm TECHNIQUE: Transaxial images were obtained from the dome of the diaphragm to the symphysis pubis without oral contrast, and without intravenous contrast. Sagittal and coronal images were reconstructed. Individualized dose optimization techniques were used for this CT. COMPARISON: Comparison is made with prior examination of 10/02/2021. FINDINGS: The visualized lung bases are unremarkable. The visualized portions of the heart are within normal limits. Normal liver. The patient is status post cholecystectomy. Normal spleen. Normal pancreas. Normal bilateral adrenal glands. Normal right kidney. Normal left kidney. Normal visualized stomach. Normal small intestine. Moderate amount of fecal material is seen in the colon. There is non-visualization of the appendix. Normal abdominal aorta. Normal inferior vena cava. Normal retroperitoneum. Normal urinary bladder. There is absence of the uterus consistent with a prior hysterectomy. Normal abdominal wall. Normal osseous structures. CT/Abdomen/Pelvis without Cont IMPRESSION: Moderate amount of fecal material is seen in the colon. Electronically Signed: Domingo Kenney MD at 15:20 EDT ,
--- NOTE | 2021-12-31 14:25 | EDS_ITS ---
HPI HPI - GI History of Present Illness Chief Complaint: Abd Pain Narrative Narrative: 41-year-old female presenting with constipation. This is a chronic issue but is worsened over the last several days. She states he is not able to eat and drink anything. She sees a doctor yumiko at [facility] who is her GI doctor. He tried to prescribe her Linzess and the prescription was declined by her insurance. She is now onAmitiza. She states she still having a bowel movement. She is supposed to start a bowel prep today for colonoscopy tomorrow however since she has not had a bowel movement and days they told her to not take the bowel prep. She states that her GI doctor's nurse practitioner wants her to come to the hospital so she can have a bowel prep overnight under monitored circumstances in the hopes that she can be discharged home in order to make a 630 colonoscopy tomorrow. The patient states she is tried enemas and this is not helping. She not currently on any narcotics. She has not had a fever or chills but she does have nausea and vomiting. She states it hurts very badly in the left lower quadrant. Patient also complains of a very bad headache. This the patient also does state that her GI doctor think there is a problem with the muscles around her rectum and he has referred her to anorectal manometry. [facility] Medical History Abdominal pain Achalasia ADHD Anxiety Back pain Chronic constipation Chronic pelvic pain in female Dermoid cyst of left ovary Dietary restriction Difficulty swallowing Easy bruising Endometriosis Former smoker Gastric reflux Headache Hiatal hernia History of GI bleed History of hiatal hernia History of IBS History of pain when walking Injury of head and neck PONV (postoperative nausea and vomiting) Seizures Sigmoid flexure adhesions Syncope Home Medications hydrocodone-acetaminophen 5-325mg 5mg-325mg 1 tab PO Q6H PRN PRN Pain 3 days #10 TABLETS 10/02/21 [Rx Last Taken Unknown] sulfamethoxazole 800 mg-trimethoprim 160 mg tablet 1 tab PO BID #6 TABLETS 10/02/21 [Rx Last Taken Unknown] ondansetron 4 mg disintegrating tablet 4 mg PO Q8H PRN PRN Nausea #12 tabs 10/07/21 [Rx Last Taken Unknown] dicyclomine 10 mg capsule 20 mg PO TID cramping #14 caps 12/31/21 [Rx Last Taken Unknown] ondansetron 4 mg disintegrating tablet 4 mg PO Q8H PRN nausea and vomiting #14 tabs 12/31/21 [Rx Last Taken Unknown] Allergy/AdvReac Type Severity Reaction Status Date / Time naproxen Allergy Intermediate Nausea Verified 10/02/21 18:37 nitrofurantoin Allergy Mucosal Verified 10/02/21 18:37 macrocrystalline lesions [From Macrodantin] adhesive AdvReac Rash Verified 10/02/21 18:37 dicyclomine HCl [From Bentyl] AdvReac ANXIETY Verified 10/02/21 18:37 hydrocodone bitartrate AdvReac Nausea/Vom/ Verified 10/02/21 18:37 [From Vicodin] Diarrhea prochlorperazine AdvReac ANXIETY Verified 10/02/21 18:37 [From Compazine] prochlorperazine edisylate AdvReac ANXIETY Verified 10/02/21 18:37 [From Compazine] prochlorperazine maleate AdvReac ANXIETY Verified 10/02/21 18:37 [From Compazine] Family History Mother Endometriosis Aunt Cancer Ovary Grandmother Cancer Uncle Hypertension Surgical History H/O laparoscopy H/O: hysterectomy History of esophagogastroduodenoscopy (EGD) History of left oophorectomy Hx of cholecystectomy Status post left oophorectomy Social History household members: children housing: apartment number of children: 2 current occupational status: unemployed pets and animals: No Smoking Status: Current every day smoker tobacco type: cigarettes and e- cigarettes Tobacco: How many years used: 4 second hand exposure: No alcohol intake: never substance use type: marijuana and other details: cbd what type of physical activity do you participate in: walking and yoga frequency: daily seatbelt use: always do you feel safe at home: Yes ROS ROS ED Constitutional Constitutional ED: Denies chills or fever(s) ENT ENT ED: Denies rhinorrhea or sore throat Cardiovascular Cardiovascular: Denies chest pain or palpitations Respiratory/Chest Respiratory/Chest: Denies cough or dyspnea Gastrointestinal Gastrointestinal: Reports abdominal pain, constipation, nausea and vomiting Genitourinary Genitourinary ED: Denies dysuria or hematuria Musculoskeletal Musculoskeletal: Denies arthralgias or back pain Integumentary Denies abscess or Abrasions Neurologic Neurologic: Reports headache(s) EXAM Physical Exam Const Vital Signs: 12/31/21 12:52 Temperature 98.0 F Temperature Source Temporal Pulse Rate 91 Respiratory Rate 18 Blood Pressure 107/73 Blood Pressure Mean 84 Pulse Ox 99 Oxygen Delivery Method Room Air Constitutional Narrative: Thin appearing, appears to be in pain. General Appearance ED: Negative for pallor HEENT Reports moist mucous membranes normocephalic and atraumatic Eyes PERRL and EOMs intact bilaterally General Eye ED: Negative for pale conjunctiva or scleral icterus Resp normal respiratory effort and clear to auscultation bilaterally Auscultation: Negative for rales, rhonchi or wheezes Cardio regular rate and regular rhythm GI GI Narrative: Diffusely tender to palpation with the most pain being in the left lower quadrant. No peritoneal signs. Palpation: Negative for guarding or rigid Back/Spine no CVA tenderness Neuro CN's II-XII intact bilaterally Sensorium / Orientation: alert, oriented to place and oriented to time Motor Exam: strength 5/5 throughout Psych mental status grossly normal Mood & Affect: anxious and tearful Skin General Skin Exam: Negative for jaundice or pallor MDM MDM MDM Narrative Medical decision making narrative: Patient presenting with abdominal pain, constipation and has now developed a headache. She will be treated with Reglan and Benadryl to help her headache and her nausea. We discussed not using narcotics because of her chronic constipation issue and this would worsen it. I will obtain blood work and give her IV fluids as well as a CT of the abdomen pelvis to make sure there is not an obstruction. Patient CBC and CMP are within normal limits. There is no evidence of dehydration. There is no evidence of infection. Serum hCG negative. I attempted to get a CT of the abdomen pelvis with IV contrast however the patient declined IV contrast because she states it makes her constipated. CT the abdomen pelvis is obtained without contrast and this shows a moderate amount of fecal material without any evidence of obstruction. I spoke with Dr. Perez, who stated that he did not know about this plan to be admitted overnight and be discharged before her colonoscopy tomorrow. He recommended that she continue her bowel prep. He recommend I give her Bentyl and Zofran for home. I discussed this with her and she is amenable to this. She is discharged home in stable condition. Impression: 1. Abdominal pain 2. Nausea/vomiting sign 3. Constipation Lab Data Attestation: I reviewed the patient's lab results. Labs: Laboratory Results - last 24 hr 12/31/21 12/31/21 12/31/21 13:03 13:03 13:03 WBC 4.4 RBC 4.46 Hgb 13.7 Hct 40.3 MCV 90.4 MCH 30.7 MCHC 34.0 RDW Std Deviation 41.4 RDW Coeff of Latasha 12.5 Plt Count 194 MPV 10.9 Immature Gran % (Auto) 0.200 Neut % (Auto) 45.7 L Lymph % (Auto) 45.5 H Charlton % (Auto) 6.8 Eos % (Auto) 1.6 Baso % (Auto) 0.2 Absolute Neuts (auto) 2.0 Absolute Lymphs (auto) 2.00 Nucleated RBC % 0 Sodium 140 Potassium 3.6 Chloride 108 H Carbon Dioxide 24.0 Anion Gap 8 BUN 8 Creatinine 0.80 Estim Creat Clear Calc 70.38 Est GFR (MDRD) Af Amer 102 Est GFR (MDRD) Non-Af 84 BUN/Creatinine Ratio 10.0 Glucose 111 H Calcium 9.3 Magnesium 2.0 Total Bilirubin 0.30 AST 11 L ALT 16 Alkaline Phosphatase 66 Total Protein 7.0 Albumin 3.7 Globulin 3.3 Albumin/Globulin Ratio 1.1 Lipase 147 Serum , Qual NEGATIVE Radiography Diagnostic Testing: Clinical Impression(s) from Imaging Studies Abdomen/Pelvis CT 12/31/21 14:22 IMPRESSION: Moderate amount of fecal material is seen in the colon. Electronically Signed: Domingo Kenney MD at 15:20 EDT , Discharge Plan Triage Chief Complaint: Abd Pain ED Provider: Gabe Nayak Dx/Rx/DC Orders Clinical Impression: Chronic constipation Instructions: ED Constipation (Adult) Prescriptions: New dicyclomine 10 mg capsule 20 mg PO TID Qty: 14 0RF ondansetron 4 mg tablet,disintegrating 4 mg PO Q8H PRN (Reason: nausea and vomiting) Qty: 14 0RF No Action sulfamethoxazole-trimethoprim [sulfamethoxazole-trimethoprim] 800-160 mg tablet 1 tab PO BID Qty: 6 0RF hydrocodone-acetaminophen [hydrocodone-acetaminophen] 5-325 mg tablet 1 tab PO Q6H PRN PRN (Reason: Pain) 3 Days Qty: 10 0RF ondansetron 4 mg tablet,disintegrating 4 mg PO Q8H PRN PRN (Reason: Nausea) Qty: 12 0RF Primary Care Provider: Care Physician,No Primary Referrals: Care Physician,No Primary [Primary Care Provider] - Disposition Disposition: Home, Self Care
[2021-12-31 14:39] LABS: Basophil# 0.01 X10^3/uL; Basophil% 0.2 % (0-1); Eosinophil# 0.07 X10^3/uL; Eosinophils% 1.6 % (0-5); Hematocrit 40.3 % (37-47); Hemoglobin 13.7 g/dL (12.0-15.0); Lymphocyte % 45.5 % (19-41); Mean Corpuscular Hgb 30.7 pg (27.0-32.0); Mean Corpuscular Volume 90.4 fL (81-99); Mean Platelet Vol. 10.9 fl (6.2-12.0); Monocyte% 6.8 % (0-10); NRBC Flagged by Analyzer 0 % (0-5); Neutrophil # 2.01 X10^3/uL (2.7-7.7); Neutrophil % 45.7 % (47-70); Platelet Count 194 K/mm3 (150-450); RBC Distribution Width CV 12.5 % (11.6-14.6); RBC Distribution Width SD 41.4 fl (35.1-43.9); Red Blood Count 4.46 M/mm3 (4.2-5.4); White Blood Count 4.4 K/mm3 (4.4-11.0)
[2021-12-31] MEDS: 0.9% Normal Saline 1,000 ML 1000 ML IV (14:53)
[2021-12-31] MEDS: DiphenhydrAMINE 50 MG/ML Syringe 25 MG IV (14:54)
[2021-12-31] MEDS: Metoclopramide 10 MG/2 ML Vial IV (14:54)
[2021-12-31 15:00] LABS: Internal QC Validated? YES +Cl - CLEAR BKGD; Pregnancy, Serum, hCG Quali. NEGATIVE Negative
[2021-12-31 15:06] LABS: ALB/GLOB Ratio 1.1 RATIO (0.9-2.4); AST(SGOT) 11 U/L (15-37); Alanine Aminotransfer ALT/SGPT 16 U/L (13-56); Albumin, Serum 3.7 g/dL (3.2-5.0); Alkaline Phosphatase 66 U/L (45-117); Anion Gap 8 (5-15); BUN 8 mg/dL (7-18); Calcium,Total 9.3 mg/dL (8.5-10.1); Chloride 108 mmol/L (98-107); EST Glomerular Filtration Rate 84 mL/min (>60); Est Glom Filt Rate - Afr Amer 102 mL/min (>60); Estimated Creatinine Clearance 70.38 ml/min; Globulin 3.3 g/dL (2.2-4.2); Glucose 111 mg/dL (74-106); Lipase 147 U/L (73-393); Potassium 3.6 mmol/L (3.5-5.1); Sodium Level 140 mmol/L (136-145)
[2021-12-31 16:50] VITALS: BP 110/70; PULSE 68; RESP 16; O2SAT 100
--- NOTE | 2021-12-31 16:51 | NURSING ---
soap suds edema given to address pt and family's concern with pt pain and pt being unable to have BM. pt had small hard result, stated I'm ok going home and relaxing so I can go more. pt tolerated well.
== END 2021-12-31 16:53 | disposition home or self-care (01) ==
PROVIDERS: Emergency Provider Student in an Organized Health Care Education/Training Program; Visit Provider Student in an Organized Health Care Education/Training Program
DX: K59.09 Other constipation (principal); F17.200 Nicotine dependence, unspecified, uncomplicated; F17.290 Nicotine dependence, other tobacco product, uncomplicated; Z90.49 Acquired absence of other specified parts of digestive tract; Z90.710 Acquired absence of both cervix and uterus
CPT/HCPCS: 74176; 80053; 83690; 83735; 84703; 85025; 96361; 96374; 96375; 99285; J7030